=== PATIENT | male | born 1930 | race African-American/Black ===

== ENCOUNTER 2017-11-11 15:32 | Emergency (ER) | payer MEDICARE ==
[2017-11-11] MEDS ORDERED: NORMAL SALINE 1000 ML 1,000 ML IV ONE (15:39)
--- NOTE | 2017-11-11 15:54 | ER Document Report ---
ED General - General Stated Complaint: NEAR SYNCOPE Time Seen by Provider: 11/11/17 15:38 - HPI Notes: Patient is an 86-year-old male with no significant past medical history and is on no p.o. medications who presents to the ED via EMS for complaint of weakness. Patient states that he was mowing his lawn when he states that he started feeling weak so he needed to sit down. Patient states that at that time his family members came up to him and made him lay down even though he did not want to and called EMS. Patient states that all he wanted to do a sit down and rest for a minute before he went back to mowing, but his daughter wanted him to come to the ED for a checkup. Patient states that he is no longer feeling weak and is feeling back to normal. Patient states that he did not have any dizziness, changes in his vision, diaphoresis, or pain. Patient states that he has been eating and drinking without any difficulties. He is urinating normally. He did not have any muscle cramping. Denies any significant cardiopulmonary medical history and is not on any blood thinners. Patient denies any injury. No LOC. Denies any headache, fever, head injury, neck pain, changes in speech/mentation/hearing, URI, sore throat, chest pain, palpitations, syncope, cough, shortness of breath, wheeze, dyspnea, abdominal pain, nausea/vomiting/diarrhea, urinary retention, dysuria, hematuria, back pain , loss of control of bowel or bladder, numbness/tingling, muscle paralysis, or rash. Past Medical History - Social History Smoking Status: Never Smoker Family History: Reviewed & Not Pertinent Review of Systems - Review of Systems -: Yes All other systems reviewed and negative Physical Exam - Vital signs Vitals: Temp Pulse Resp 98.2 F 92 16 11/11/17 15:35 11/11/17 15:35 11/11/17 15:35 - Notes Notes: PHYSICAL EXAMINATION: GENERAL: Well-appearing, well-nourished and in no acute distress. A&Ox4. Answers questions appropriately. Very pleasant. HEAD: Atraumatic, normocephalic. Non-tender. No bell sign EYES: Pupils equal round and reactive to light, extraocular movements intact, sclera anicteric, conjunctiva are normal. No raccoon eyes/entrapment. No nystagmus. ENT: EAC clear b/l. TM's intact b/l without erythema, fluid, or perforation. Nares patent and without discharge. oropharynx clear without exudates. No tonsilar hypertrophy or erythema. Moist mucous membranes. No sinus tenderness. No hemotympanum/CSF discharge. NECK: Normal range of motion, supple without lymphadenopathy. No rigidity. No midline tenderness. Chest: No flail chest. equal rise/fall. Non-tender LUNGS: Breath sounds clear to auscultation bilaterally and equal. No wheezes rales or rhonchi. HEART: Regular rate and rhythm without murmurs, rubs, gallops. ABDOMEN: Soft, nontender, nondistended abdomen. No guarding, no rebound. No masses appreciated. Normal bowel sounds present. No CVA tenderness bilaterally. Musculoskeletal: Ext b/l: FROM to passive/active. Strength 5+/5. No deficits noted. No bony tenderness of extremities. Back: FROM to passive/active. Strength 5+/5. No vertebral point tenderness, stepoffs, or deformities. No other bony tenderness or ecchymosis. Extremities: No cyanosis, clubbing, or edema b/l. Peripheral pulses 2+. Capillary refill less than 2 seconds. NEUROLOGICAL: NIH 0. GCS 15. Cranial nerves grossly intact. Normal speech, normal gait. Normal sensory, motor exams. Reflexes 2+ b/l. HÉCTOR's negative. Pronator drift negative. Heel/marin, finger/nose wnl. PSYCH: Normal mood, normal affect. SKIN: Warm, Dry, normal turgor, no rashes or lesions noted. Course - Re-evaluation Re-evalutation: 11/11/17 15:56 Pt's currently history not suggestive of near syncope or syncope. 11/11/17 19:19 Patient is an afebrile, well-hydrated 86-year-old male who presents to the ED with episode of feeling weak, since resolved. Vitals are acceptable without any significant tachycardia, tachypnea, or hypoxia. PE is otherwise unremarkable. Patient is nontoxic-appearing and is tolerating p.o. without any difficulties. Pt is currently asymptomatic. Pt has been asymptomatic since prior to his arrival. Pt was working out in the sunlight and became tired when he was mowing the lawn and his family wanted him checked out. CBC, CMP, EKG/ cardiac enzymes 2, chest x-ray, UA are all unremarkable for any acute pathology. Patient has a heart score of 2, Wells score of 0, and is PERC negative aside from his age. Patient has not had any chest pain, dyspnea, or shortness of breath. Patient's presentation and symptomatology creates low suspicion for ACS, PE, pneumothorax, pericarditis, dissection, respiratory compromise, severe dehydration, sepsis, meningitis, acute intracranial pathology , or other systemic emergent condition at this time. Patient is aware that his condition can change from initial presentation and he needs to monitor symptoms closely and seek medical attention for any acute changes. Pt is feeling better and would like to go home. Recommend conservative measures for symptoms. Recheck with your PCM in 2-3 days. Consider consult with Cardiology. Return to the ED with any worsening/concerning symptoms otherwise as reviewed in discharge. Patient is in agreement. Reviewed case with Dr. Edwards who is in agreement with dispo/plan. - Vital Signs Vital signs: Temp Pulse Resp BP Pulse Ox 98.2 F 92 22 H 149/76 H 99 11/11/17 15:35 11/11/17 15:35 11/11/17 18:21 11/11/17 18:21 11/11/17 18:21 - Laboratory Result Diagrams: 11/11/17 16:00 11/11/17 16:00 Laboratory results interpreted by me: 11/11/17 11/11/17 11/11/17 16:00 16:00 16:43 WBC 3.7 L Sodium 147.1 H Chloride 108 H Urine Urobilinogen 2.0 H Urine Ascorbic Acid 40 H Discharge - Discharge Clinical Impression: Weakness, Worried well Condition: Stable Disposition: HOME, SELF-CARE Additional Instructions: Maintain adequate fluid and food intake healthy diet Monitor symptoms for any acute changes Recheck with your PCM in 2-3 days Consider a follow-up with cardiology Return to the ED with any worsening symptoms and/or development of fever, headache, chest pain, palpitations, syncope, shortness of breath, trouble breathing, abdominal pain, n/v/d, blood in stool/urine, loss of control of bowel /bladder, urinary retention, muscle weakness/paralysis, numbness/tingling, or other worsening symptoms that are concerning to you. Forms: Elevated Blood Pressure Referrals: ALDEN AHUJA MD [Primary Care Provider] - 11/14/17
[2017-11-11 16:11] LABS: ABSOLUTE MONOCYTES (AUTO) 0.4 10^3/uL (0.1-1.4); ABSOLUTE NEUT (AUTO) 2.3 10^3/uL (1.7-8.2); BASOPHILS % (AUTO) 0.9 % (0-2); EOSINOPHILS % (AUTO) 0.7 % (0-6); HEMATOCRIT 41.1 % (37.9-51.0); HEMOGLOBIN 13.7 g/dL (13.5-17.0); LYMPHOCYTES % (AUTO) 26.2 % (13-45); MEAN CORPUSCULAR HEMOGLOBIN 31.2 pg (27.0-33.4); MEAN CORPUSCULAR HGB CONC 33.4 g/dL (32.0-36.0); MEAN CORPUSCULAR VOLUME 94 fl (80-97); MONOCYTES % (AUTO) 10.6 % (3-13); PLATELET COUNT 179 10^3/uL (150-450); RED CELL DISTRIBUTION WIDTH 13.3 % (11.5-14.0); SEGMENTED NEUTROPHILS % (AUTO) 61.6 % (42-78); TOTAL CELLS COUNTED % (AUTO) 100 %; WHITE BLOOD COUNT 3.7 10^3/uL (4.0-10.5)
--- NOTE | 2017-11-11 16:27 | RADIOLOGY REPORT (SQ) ---
EXAM DESCRIPTION: CHEST SINGLE VIEW COMPLETED DATE/TIME: 11/11/2017 4:18 pm REASON FOR STUDY: syncope COMPARISON: None. EXAM PARAMETERS: NUMBER OF VIEWS: One view. TECHNIQUE: Single frontal radiographic view of the chest acquired. RADIATION DOSE: NA LIMITATIONS: None. FINDINGS: LUNGS AND PLEURA: No opacities, masses or pneumothorax. No pleural effusion. MEDIASTINUM AND HILAR STRUCTURES: No masses. Contour normal. HEART AND VASCULAR STRUCTURES: Heart normal in size. Normal vasculature. BONES: No acute findings. HARDWARE: None in the chest. OTHER: No other significant finding. IMPRESSION: NO ACUTE RADIOGRAPHIC FINDING IN THE CHEST. TECHNICAL DOCUMENTATION: JOB ID: [id number] [employer]- All Rights Reserved Reading location - IP/workstation name: [email or web address]
[2017-11-11 16:33] LABS: ALANINE AMINOTRANSFERASE 26 U/L (21-72); ALBUMIN 3.7 g/dL (3.5-5.0); ALKALINE PHOSPHATASE 46 U/L (38-126); ANION GAP 11 (5-19); ASPARTATE AMINO TRANSFERASE 26 U/L (17-59); BILIRUBIN,DIRECT 0.3 mg/dL (0.0-0.4); BILIRUBIN,TOTAL 0.6 mg/dL (0.2-1.3); BLOOD UREA NITROGEN 19 mg/dL (7-20); CALCIUM 9.3 mg/dL (8.4-10.2); CARBON DIOXIDE 28 mmol/L (22-30); CHLORIDE 108 mmol/L (98-107); CREATINE KINASE 73 U/L (55-170); GLUCOSE 90 mg/dL (75-110); SODIUM 147.1 mmol/L (137-145); TOTAL PROTEIN 6.3 g/dL (6.3-8.2)
[2017-11-11 19:16] LABS: APPEARANCE,URINE CLEAR; BILIRUBIN,URINE NEGATIVE (NEGATIVE); COLOR,URINE YELLOW; GLUCOSE, URINE NEGATIVE (NEGATIVE); KETONES,URINE NEGATIVE (NEGATIVE); LEUKOCYTE ESTERASE,URINE NEGATIVE (NEGATIVE); NITRITE,URINE NEGATIVE (NEGATIVE); PROTEIN,URINE NEGATIVE (NEGATIVE); URINE SPECIFIC GRAVITY 1.024
[2017-11-11 19:51] VITALS: BP 144/70
--- NOTE | 2017-11-11 22:28 | EKG REPORT ---
SEVERITY:- BORDERLINE ECG - SINUS RHYTHM PROBABLE LEFT ATRIAL ABNORMALITY : Confirmed by: Kellen Mata MD 11-Nov-2017 22:28:04
== END 2017-11-11 19:58 | disposition home or self-care (01) ==
LOC: ER 15:32
DX: R53.1 Weakness (principal)
CPT/HCPCS: 93005; 99284; 96360; 96361; 36415; 87086; 82550; 85025; 80053; 81001; 84484; 71045; 93010; J7030

== ENCOUNTER 2019-11-23 03:13 | Emergency (ER) | payer MEDICARE ==
--- NOTE | 2019-11-23 04:57 | ER Document Report ---
ED General - General Chief Complaint: Fall Stated Complaint: ABRASION AND HEMATOMA HEAD Time Seen by Provider: 11/23/19 04:32 Primary Care Provider: AMMON WALKER MD [Primary Care Provider] - 11/26/19 Notes: Patient is an 88-year-old male that comes emergency department for chief complaint of a fall. Patient has a history of dementia, lives at home with his family, daughter states that she heard the patient leaving his room, she thought he was visiting his in the other room, however she checked on him shortly after and found that he was gone, the back door was open, she checked outside and he was missing. She states that she was getting into her vehicle to go looking for him when the police pulled up with the patient in the backseat. Daughter states that police told her they found patient down the road in a ditch and had apparently fallen into the ditch and was lying on the ground when they got him. Patient was on the ground for an estimated time of 30 minutes or less. Patient was noted to have an abrasion to his forehead, however he was talkative, cooperative, and complains of no pain. Patient is not on a blood thinner. Patient has no complaints currently, is responsive, and is reportedly at his mental baseline. Patient is up-to-date on his tetanus within 5 years reportedly. Patient is extremely healthy other than the dementia and takes no daily medications reportedly. Past Medical History - General Information source: Patient, Relative - Social History Smoking Status: Former Smoker Frequency of alcohol use: None Drug Abuse: None Lives with: Family Family History: Reviewed & Not Pertinent Patient has homicidal ideation: No Renal/ Medical History: Denies: Hx Peritoneal Dialysis - Immunizations Immunizations up to date: Yes Hx Diphtheria, Pertussis, Tetanus Vaccination: Yes Review of Systems - Review of Systems Constitutional: See HPI EENT: No symptoms reported Cardiovascular: No symptoms reported Respiratory: No symptoms reported Gastrointestinal: No symptoms reported Genitourinary: No symptoms reported Male Genitourinary: No symptoms reported Musculoskeletal: See HPI Skin: See HPI Hematologic/Lymphatic: No symptoms reported Neurological/Psychological: See HPI Physical Exam - Vital signs Vitals: Temp Pulse Resp BP Pulse Ox 98.5 F 72 20 156/67 H 97 11/23/19 03:23 11/23/19 03:23 11/23/19 03:23 11/23/19 03:23 11/23/19 03:23 - Notes Notes: GENERAL: Alert, interacts well. No acute distress. Talkative, smiling, well- appearing HEAD: Normocephalic. There is an approximately 2 cm abrasion over the left mid forehead but no concerning wounds otherwise, no ecchymosis or hematoma noted. EYES: Pupils equal, round, and reactive to light. Extraocular movements intact. ENT: Oral mucosa moist, tongue midline. Oropharynx unremarkable. Airway patent. Nares patent, sinuses non-tender, ear canals unremarkable, TM's intact. NECK: Full range of motion. Supple. Trachea midline. No lymphadenopathy. LUNGS: Clear to auscultation bilaterally, no wheezes, rales, or rhonchi. No respiratory distress. Non-tender chest wall. No signs of trauma. HEART: Regular rate and rhythm. No murmur ABDOMEN: Soft, non-tender. Non-distended. Bowel sounds present in all 4 quadrants. No signs of trauma. EXTREMITIES: Moves all 4 extremities spontaneously. No signs of trauma. No edema, normal radial and dorsalis pedis pulses bilaterally. No cyanosis. BACK: no cervical, thoracic, lumbar midline tenderness. No saddle anesthesia, normal distal neurovascular exam. Moves all extremities in full range of motion. NEUROLOGICAL: Alert and oriented to person and place only. Normal speech. Cranial nerves II through XII grossly intact. Strength 5/5 in all extremities. PSYCH: Normal affect, normal mood. SKIN: Warm, dry, normal turgor. No rashes or lesions noted. Course - Re-evaluation Re-evalutation: Patient is alert, cooperative, oriented to person, place, but not all events. Reportedly this is his baseline. He has no neurological deficits otherwise. He does have an abrasion over the forehead but no open wounds requiring repair. There is no other sign of trauma over the patient's body despite thorough evaluation. CBC, chemistry unremarkable, urinalysis shows some dehydration but is otherwise unremarkable, CK is not elevated. CT of the head and neck with no acute findings. Patient unchanged on reevaluation. Discussed work-up with patient and family. Patient will be discharged with head injury precautions, wound care instructions were discussed, return precautions were discussed in detail. They state appreciation and agreement with plan. Patient asymptomatic, stable, well- appearing at time of discharge. - Vital Signs Vital signs: Temp Pulse Resp BP Pulse Ox 98.5 F 66 14 148/67 H 100 11/23/19 03:23 11/23/19 08:05 11/23/19 08:05 11/23/19 08:05 11/23/19 08:05 - Laboratory Result Diagrams: 11/23/19 05:14 11/23/19 05:14 Laboratory results interpreted by me: 11/23/19 11/23/19 05:14 07:02 Carbon Dioxide 31 H Anion Gap 3 L Urine Protein 30 H Urine Urobilinogen 2.0 H Ur Leukocyte Esterase TRACE H Urine Ascorbic Acid 40 H Discharge - Discharge Clinical Impression: Fall Qualifiers: Encounter type: initial encounter Qualified Code(s): W19.XXXA - Unspecified fall, initial encounter Forehead abrasion Qualifiers: Encounter type: initial encounter Qualified Code(s): S00.81XA - Abrasion of other part of head, initial encounter Head injury Qualifiers: Encounter type: initial encounter Qualified Code(s): S09.90XA - Unspecified injury of head, initial encounter Condition: Stable Disposition: HOME, SELF-CARE Additional Instructions: The CAT scan of the head and neck do not show any concerning findings, his laboratory work-up does not show any concerning findings other than mild dehydration. Make sure he drinks plenty of fluids. Keep the area/abrasion of the forehead clean, clean with soap and water, keep topical antibiotic over the area, this should simply heal with time. At this point, there is no evidence that your head injury is serious. Observation is necessary, however. You can take Tylenol if needed for pain. Limit activity for the first 24 hours. During the first 24 hours, check to see approximately every two to three hours that the patient is easily arousable, responds normally, and can perform common tasks such as walking without difficulty. Head injuries can cause symptoms that persist for a few days or even a few weeks (difficulty concentrating, nausea, headaches, etc.). Return for any concerning symptoms including vomiting, difficulty arousing the patient, worsening or continued headache, seizure, or failure to improve as expected. Referrals: AMMON WALKER MD [Primary Care Provider] - 11/26/19
[2019-11-23 05:23] LABS: ABSOLUTE LYMPHOCYTES (AUTO) 1.2 10^3/uL (0.5-4.7); ABSOLUTE MONOCYTES (AUTO) 0.4 10^3/uL (0.1-1.4); RED BLOOD COUNT 4.35 10^6/uL (4.35-5.55); TOTAL CELLS COUNTED % (AUTO) 100 %
[2019-11-23 05:27] LABS: ABSOLUTE EOSINOPHILS # (AUTO) 0.1 10^3/uL (0.0-0.6); BASOPHILS % (AUTO) 0.9 % (0-2); EOSINOPHILS % (AUTO) 1.1 % (0-6); HEMATOCRIT 40.8 % (37.9-51.0); HEMOGLOBIN 13.8 g/dL (13.5-17.0); LYMPHOCYTES % (AUTO) 26.2 % (13-45); MEAN CORPUSCULAR HEMOGLOBIN 31.8 pg (27.0-33.4); MEAN CORPUSCULAR VOLUME 94 fl (80-97); MONOCYTES % (AUTO) 8.5 % (3-13); PLATELET COUNT 211 10^3/uL (150-450); RED CELL DISTRIBUTION WIDTH 13.5 % (11.5-14.0); SEGMENTED NEUTROPHILS % (AUTO) 63.3 % (42-78); WHITE BLOOD COUNT 4.8 10^3/uL (4.0-10.5)
[2019-11-23 05:40] LABS: BLOOD UREA NITROGEN 16 mg/dL (7-20); CARBON DIOXIDE 31 mmol/L (22-30); CHLORIDE 106 mmol/L (98-107); GLUCOSE 104 mg/dL (75-110); POTASSIUM 4.3 mmol/L (3.6-5.0)
[2019-11-23 05:47] LABS: ANION GAP 3 (5-19)
--- NOTE | 2019-11-23 06:05 | RADIOLOGY REPORT (SQ) ---
CT of the head: 11/23/2019 5:02 AM CDT HISTORY: 88-year-old patient with fall, head injury. COMPARISON: None available TECHNIQUE: Multiple axial contiguous images were obtained through the head without intravenous contrast administered. This exam was performed according to our departmental dose-optimization program, which includes automated exposure control, adjustment of the mA and/or KV according to the patient's size and/or use of iterative reconstruction technique. FINDINGS: The ventricles and cerebral sulci demonstrate mild prominence, consistent with cerebral atrophy. There are mild periventricular hypodensities, suggestive of periventricular white matter changes. The maddox-white matter differentiation is within normal limits. Both orbits appear unremarkable. The mastoid air cells appear clear. The visualized paranasal sinuses appear clear. The calvarium is intact. No extra-axial fluid collection is seen. No midline shift or mass effect is apparent. There are no findings to suggest acute intracranial hemorrhage. IMPRESSION: 1. No acute intracranial hemorrhage is seen. 2. Mild cerebral atrophy and periventricular white matter changes are seen. CT CERVICAL SPINE: 11/23/2019 5:03 AM CDT TECHNIQUE: Axial contiguous images were obtained through the cervical spine without intravenous contrast. Sagittal and coronal reconstructions were also reviewed. This exam was performed according to our departmental dose-optimization program, which includes automated exposure control, adjustment of the mA and/or KV according to the patient's size and/or use of iterative reconstruction technique. COMPARISON: None available INDICATION: 88-year old patient with neck pain, fall. FINDINGS: There are multilevel anterior osteophyte seen at the cervical spine. Moderate facet hypertrophy is seen which contributes to multilevel neural foraminal narrowing most pronounced at the lower cervical spine.. There is moderate atherosclerotic calcification at the carotid bulbs. There is a disc osteophyte seen in C5/C6 and C6/C7. The vertebral bodies appear well aligned. The vertebral body heights appear well maintained. No significant pre-vertebral soft tissue swelling is noted. No definite fracture or subluxation is noted. No significant intervertebral disc space narrowing is seen. The visualized brain parenchyma appears unremarkable. The craniocervical junction is unremarkable. IMPRESSION: There are no findings to suggest an acute fracture or subluxation within the cervical spine.
[2019-11-23 07:20] LABS: APPEARANCE,URINE SLIGHTLY-CLOUDY; BILIRUBIN,URINE NEGATIVE (NEGATIVE); COLOR,URINE YELLOW; GLUCOSE, URINE NEGATIVE (NEGATIVE); KETONES,URINE NEGATIVE (NEGATIVE); LEUKOCYTE ESTERASE,URINE TRACE (NEGATIVE); NITRITE,URINE NEGATIVE (NEGATIVE); PROTEIN,URINE 30 mg/dL (NEGATIVE); URINE SPECIFIC GRAVITY 1.024
[2019-11-23] MEDS ORDERED: NORMAL SALINE 500 ML IV ONE (07:25)
[2019-11-23 08:12] VITALS: BP 148/67
== END 2019-11-23 08:05 | disposition home or self-care (01) ==
LOC: ER 03:13
DX: S00.81XA Abrasion of other part of head, initial encounter (principal); W17.89XA Other fall from one level to another, initial encounter; Y92.89 Other specified places as the place of occurrence of the external cause; E86.0 Dehydration; F03.90 Unspecified dementia, unspecified severity, without behavioral disturbance, psychotic disturbance, mood disturbance, and anxiety; Z87.891 Personal history of nicotine dependence
CPT/HCPCS: 36415; 70450; 72125; 80048; 81001; 82550; 85025; 87086; 87088; 87186; 99284

== ENCOUNTER 2020-02-11 14:07 | Inpatient (IN) | payer MEDICARE ==
--- NOTE | 2020-02-11 14:28 | ER Document Report ---
ED Dizziness/Weakness - General Stated Complaint: AMS/SEPSIS Time Seen by Provider: 02/11/20 14:21 Primary Care Provider: AMMON WALKER MD [Primary Care Provider] - Follow up as needed Mode of Arrival: Medic Information source: Emergency Med Personnel Cannot obtain history due to: Altered mental status Notes: 89-year-old black male arrives by [place] [facility] worker on bus #8. She advises she just came from the patient's home where the demented resides as well as the daughter who lives next door who is main historian. Patient saw Dr. Walker 2 weeks ago with blood around his urinary meatus and had some cream applied to this area. He was not checked for urinalysis because the area was so tender. Patient was doing well for breakfast but this afternoon he was not doing so well with chills and mental status change. Patient does slap away people around him advising to let him go. A Boudreaux was placed and the patient and patient had blood work done in room #2 Per ESSIE Cabrera and [place] boiler service technician. Patient had a 3.5 lactic acid in route. Patient's blood pressure was 192/95 with tachypnea and what appears to be atrial flutter controlled. TRAVEL OUTSIDE OF THE [place] IN LAST 30 DAYS: No - Just had negative coronavirus around 1 to 2 weeks ago per EMS - HPI Patient complains to provider of: Altered mental status, Weakness - A portable Pap today he can use his IVs as a site prior to arrival Onset: This afternoon Onset/Duration: Sudden, Persistent, Worse Quality of pain: No pain Severity: Moderate Pain Level: 2 Associated symptoms: Confused, Lightheaded, Loss of strength, Weak all over Baseline gait: Walks w/o assistance - Related Data Allergies/Adverse Reactions: No Known Allergies Allergy (Verified 02/11/20 14:30) Past Medical History - General Information source: Relative, Emergency Med Personnel - Social History Smoking Status: Never Smoker Cigarette use (# per day): No Chew tobacco use (# tins/day): No Smoking Education Provided: No Family History: Reviewed & Not Pertinent Patient has suicidal ideation: No Patient has homicidal ideation: No Renal/ Medical History: Denies: Hx Peritoneal Dialysis - Immunizations Immunizations up to date: Yes Hx Diphtheria, Pertussis, Tetanus Vaccination: Yes Review of Systems - Review of Systems Constitutional: See HPI, Weakness EENT: No symptoms reported Cardiovascular: No symptoms reported Respiratory: No symptoms reported Gastrointestinal: No symptoms reported Genitourinary: No symptoms reported Male Genitourinary: No symptoms reported Musculoskeletal: No symptoms reported Skin: No symptoms reported Hematologic/Lymphatic: No symptoms reported Neurological/Psychological: No symptoms reported Physical Exam - Vital signs Vitals: Resp BP 27 H 192/95 H 02/11/20 14:11 02/11/20 14:11 Interpretation: Normal - General General appearance: Appears well, Alert - HEENT Head: Normocephalic, Atraumatic Eyes: Normal Pupils: PERRL - Respiratory Respiratory status: No respiratory distress Chest status: Nontender Breath sounds: Normal Chest palpation: Normal - Cardiovascular Rhythm: Regular Heart sounds: Normal auscultation Murmur: No - Abdominal Inspection: Normal Distension: No distension Bowel sounds: Normal Tenderness: Nontender Organomegaly: No organomegaly - Rectal Prostate: Other - deferred - Genitourinary Scrotum: Other - deferred - Back Back: Normal, Nontender - Extremities General upper extremity: Normal inspection, Nontender, Normal color, Normal ROM, Normal temperature General lower extremity: Normal inspection, Nontender, Normal color, Normal ROM, Normal temperature, Normal weight bearing. No: Livia's sign - Neurological Neuro grossly intact: No Cognition: Confused Orientation: Disoriented to events [place] Coma Scale Eye Opening: To Pain Daisy Coma Scale Verbal: Confused [place] Coma Scale Motor: Localizes to Pain Daisy Coma Scale Total: 11 Speech: Normal Motor strength normal: LUE, RUE, LLE, RLE - Psychological Associated symptoms: Normal affect, Normal mood - Skin Skin Temperature: Warm Skin Moisture: Dry Skin Color: Normal Course - Vital Signs Vital signs: Temp Pulse Resp BP Pulse Ox 24 H 187/91 H 100 02/11/20 14:31 02/11/20 14:31 02/11/20 14:31 - Laboratory Result Diagrams: 02/11/20 14:20 02/11/20 14:20 Laboratory results interpreted by me: 02/11/20 02/11/20 02/11/20 14:20 14:20 14:20 RBC 4.24 L Lymph % (Auto) 47.2 H Seg Neutrophils % 41.6 L APTT 37.8 H Creatine Kinase 38 L Urine Protein Urine Urobilinogen Urine Ascorbic Acid 02/11/20 14:20 RBC Lymph % (Auto) Seg Neutrophils % APTT Creatine Kinase Urine Protein 30 H Urine Urobilinogen 4.0 H Urine Ascorbic Acid 20 H - Diagnostic Test Radiology reviewed: Reports reviewed - CT of head and chest x-ray were evaluated and reported to his personal doctor as well. - EKG Interpretation by Me EKG shows normal: Sinus rhythm Rate: Normal Rhythm: NSR - Heart rate 63 bpm with PAC and borderline T wave abnormalities in the inferior leads and no ST elevation noted by myself on my read. I agree with the EKG machine as well. Critical Care Note - Critical Care Note Comments: I spoke with Dr. Walker at 1635 and he advises Covid test and placement; Discharge - Discharge Clinical Impression: COVID-19 virus test result unknown Pneumonia Qualifiers: Pneumonia type: due to unspecified organism Laterality: left Lung location: lower lobe of lung Qualified Code(s): J18.9 - Pneumonia, unspecified organism Mental status alteration Qualifiers: Altered mental status type: unspecified Qualified Code(s): R41.82 - Altered mental status, unspecified Hypertension Qualifiers: Hypertension type: unspecified Qualified Code(s): I10 - Essential (primary) hypertension Condition: Stable Disposition: ADMITTED INPATIENT Admitting Provider: Nidhi Unit Admitted: Medical Floor Additional Instructions: As per .. He advises transfer to the coronavirus floor Referrals: AMMON WALKER MD [Primary Care Provider] - Follow up as needed
[2020-02-11 14:41] LABS: APPEARANCE,URINE SLIGHTLY-CLOUDY; BILIRUBIN,URINE NEGATIVE (NEGATIVE); COLOR,URINE YELLOW; GLUCOSE, URINE NEGATIVE (NEGATIVE); KETONES,URINE NEGATIVE (NEGATIVE); LEUKOCYTE ESTERASE,URINE NEGATIVE (NEGATIVE); NITRITE,URINE NEGATIVE (NEGATIVE); PROTEIN,URINE 30 mg/dL (NEGATIVE); URINE SPECIFIC GRAVITY 1.021
[2020-02-11 14:46] LABS: ABSOLUTE EOSINOPHILS # (AUTO) 0.1 10^3/uL (0.0-0.6); ABSOLUTE LYMPHOCYTES (AUTO) 1.9 10^3/uL (0.5-4.7); ABSOLUTE MONOCYTES (AUTO) 0.4 10^3/uL (0.1-1.4); ABSOLUTE NEUT (AUTO) 1.7 10^3/uL (1.7-8.2); BASOPHILS % (AUTO) 0.6 % (0-2); EOSINOPHILS % (AUTO) 1.7 % (0-6); HEMATOCRIT 39.4 % (37.9-51.0); HEMOGLOBIN 13.7 g/dL (13.5-17.0); LYMPHOCYTES % (AUTO) 47.2 % (13-45); MEAN CORPUSCULAR HEMOGLOBIN 32.4 pg (27.0-33.4); MEAN CORPUSCULAR HGB CONC 34.8 g/dL (32.0-36.0); MEAN CORPUSCULAR VOLUME 93 fl (80-97); MONOCYTES % (AUTO) 8.9 % (3-13); PLATELET COUNT 234 10^3/uL (150-450); RED BLOOD COUNT 4.24 10^6/uL (4.35-5.55); RED CELL DISTRIBUTION WIDTH 13.4 % (11.5-14.0); SEGMENTED NEUTROPHILS % (AUTO) 41.6 % (42-78); TOTAL CELLS COUNTED % (AUTO) 100 %; WHITE BLOOD COUNT 4.1 10^3/uL (4.0-10.5)
--- NOTE | 2020-02-11 14:48 | RADIOLOGY REPORT (SQ) ---
EXAM DESCRIPTION: CHEST SINGLE VIEW IMAGES COMPLETED DATE/TIME: 02/11/2020 2:41 pm REASON FOR STUDY: ms changes COMPARISON: None. EXAM PARAMETERS: NUMBER OF VIEWS: One view. TECHNIQUE: Single frontal radiographic view of the chest acquired. RADIATION DOSE: NA LIMITATIONS: None. FINDINGS: LUNGS AND PLEURA: Minimal infiltrate in the left base either atelectasis or developing pne umonia. Lung rojo are otherwise clear. MEDIASTINUM AND HILAR STRUCTURES: No masses. Contour normal. HEART AND VASCULAR STRUCTURES: Heart normal in size. Normal vasculature. BONES: No acute findings. HARDWARE: None in the chest. OTHER: No other significant finding. IMPRESSION: Minimal left basilar infiltrate most likely atelectasis. TECHNICAL DOCUMENTATION: JOB ID: [id number] 2010 [employer]- All Rights Reserved Reading location - IP/workstation name: [email or web address]
[2020-02-11 14:51] LABS: VENOUS BLOOD BASE EXCESS 1.9 mmol/L; VENOUS BLOOD HCO3 28.6 mmol/L (20-32); VENOUS BLOOD PCO2 53.2 mmHg (35-63); VENOUS BLOOD PH 7.35 (7.30-7.42)
[2020-02-11 14:54] LABS: INTERNATIONAL RATION (INR) 1.06
[2020-02-11 14:55] LABS: PARTIAL THROMBOPLASTIN TIME 37.8 SEC (23.5-35.8)
[2020-02-11 15:10] LABS: ALBUMIN 3.7 g/dL (3.5-5.0); ALKALINE PHOSPHATASE 76 U/L (38-126); ANION GAP 10 (5-19); ASPARTATE AMINO TRANSFERASE 24 U/L (17-59); BILIRUBIN,DIRECT 0.3 mg/dL (0.0-0.4); BILIRUBIN,TOTAL 0.7 mg/dL (0.2-1.3); BLOOD UREA NITROGEN 19 mg/dL (7-20); CALCIUM 9.3 mg/dL (8.4-10.2); CARBON DIOXIDE 28 mmol/L (22-30); CHLORIDE 105 mmol/L (98-107); CREATINE KINASE 38 U/L (55-170); GLUCOSE 101 mg/dL (75-110); POTASSIUM 4.3 mmol/L (3.6-5.0); TOTAL PROTEIN 6.6 g/dL (6.3-8.2)
--- NOTE | 2020-02-11 15:53 | RADIOLOGY REPORT (SQ) ---
EXAM DESCRIPTION: CT HEAD WITHOUT IMAGES COMPLETED DATE/TIME: 02/11/2020 3:19 pm REASON FOR STUDY: ms changes COMPARISON: 11/23/2019 TECHNIQUE: Axial images acquired through the brain without intravenous contrast. Images reviewed wi th bone, brain and subdural windows. Additional sagittal and coronal reconstructions were generated. Images stored on PACS. All CT scanners at this facility use dose modulation, iterative reconstruction, and/or weight based d osing when appropriate to reduce radiation dose to as low as reasonably achievable (ALARA). [facility]: Dose Right [facility]: CareDose [facility]: Dose Right [facility]: Teradose 4D [facility]: Moonshoot RADIATION DOSE: CT Rad equipment meets quality standard of care and radiation dose reduction techniq ues were employed. CTDIvol: 53.2 mGy. DLP: 1044 mGy-cm.mGy. LIMITATIONS: None. FINDINGS: VENTRICLES: Prominent. CEREBRUM: No masses. No hemorrhage. No midline shift. Areas of low density in the white matter mos t likely due to chronic micro-vascular ischemic change. No evidence for acute infarction. CEREBELLUM: No masses. No hemorrhage. No alteration of density. No evidence for acute infarction. EXTRAAXIAL SPACES: Age-related involutional change. No fluid collections. No masses. ORBITS AND GLOBE: No intra- or extraconal masses. Normal contour of globe without masses. CALVARIUM: No fracture. PARANASAL SINUSES: No fluid or mucosal thickening. SOFT TISSUES: No mass or hematoma. OTHER: No other significant finding. IMPRESSION: CHRONIC CHANGES OF ATROPHY AND MICROVASCULAR ISCHEMIA. NO ACUTE PROCESS. EVIDENCE OF ACUTE STROKE: NO. TECHNICAL DOCUMENTATION: JOB ID: [id number] Quality ID # [id number]: Final reports with documentation of one or more dose reduction techniques (e.g., Au tomated exposure control, adjustment of the mA and/or kV according to patient size, use of iterative reconstruction technique) 2010 [employer]- All Rights Reserved Reading location - IP/workstation name: [email or web address]
[2020-02-11] MEDS ORDERED: CEFTRIAXONE INJ 1000 MG VIAL IV ONE (16:41)
[2020-02-11] MEDS ORDERED: DEXAMETHASONE SOD PHOS INJ 10 MG/1 ML VIAL IV ONE (16:42)
[2020-02-11] MEDS ORDERED: FAMOTIDINE INJ/PF 20 MG/2 ML SDV IV ONE (16:42)
--- NOTE | 2020-02-11 17:19 | EKG REPORT ---
SEVERITY:- BORDERLINE ECG - SINUS RHYTHM ATRIAL PREMATURE COMPLEX BORDERLINE T ABNORMALITIES, INFERIOR LEADS : Confirmed by: Dillon Carmona MD 11-Feb-2020 17:18:35
[2020-02-11 18:09] LABS: A TYPE INFLUENZA AG NEGATIVE (NEGATIVE); B INFLUENZA AG NEGATIVE (NEGATIVE)
[2020-02-11] MEDS ORDERED: LOSARTAN POTASSIUM 50 MG TABLET PO ONE (22:15)
--- NOTE | 2020-02-11 22:21 | PDOC H&P ---
History of Present Illness Admission Date/PCP: 02/11/20 19:28 AMMON ZENAANTONIONeda Patient complains of: Change in mental status, Weakness History of Present Illness: DONG CAO is a 89 year old male patient known to my practice who was recently treated for balanitis and reported incident of fall at his home. Patient presented to the ED via EMS with complain of weakness, change in mental status and chills. There was reported elevated lactic acid level at 3.5 en route to the ED and blood pressure at 192/95 mmHg. His initial evaluation in the ED was significant for persistent elevated blood pressure and concern about possible left lower lobe air space disease process versus atelectesis. His CT brain revealed chronic changes with atrophy. He was unable to contribute to his medical history due to his altered mental status. His medical morbidities are as listed below. He will be admitted for further evaluation and management as well as rule out for COVID-19 infection. Social History Smoking Status: Never Smoker Electronic Cigarette use?: No - Advance Directive Resuscitation Status: Full Code Family History Family History: Reviewed & Not Pertinent Parental Family History Reviewed: Yes Children Family History Reviewed: Yes Sibling(s) Family History Reviewed.: Yes Medication/Allergy Home Medications: No Home Medications 02/11/20 Allergies/Adverse Reactions: No Known Allergies Allergy (Verified 02/11/20 14:30) Review of Systems ROS unobtainable: Due to mental status Physical Exam Vital Signs: Temp Pulse Resp BP Pulse Ox 98.1 F 53 L 21 H 182/92 H 100 02/11/20 17:01 02/11/20 19:00 02/11/20 19:00 02/11/20 19:00 02/11/20 19:00 Intake & Output 02/10/20 02/11/20 02/12/20 06:59 06:59 06:59 Weight 56.5 kg General appearance: PRESENT: no acute distress Head exam: PRESENT: atraumatic, normocephalic Eye exam: PRESENT: conjunctiva pink, EOMI, PERRLA. ABSENT: scleral icterus Mouth exam: PRESENT: moist - fairly Neck exam: PRESENT: full ROM Respiratory exam: PRESENT: clear to auscultation emily, decreased breath sounds - at lung bases Cardiovascular exam: PRESENT: RRR, +S1, +S2. ABSENT: diastolic murmur, rubs, systolic murmur Vascular exam: ABSENT: pallor GI/Abdominal exam: PRESENT: normal bowel sounds, soft. ABSENT: distended, guarding, mass, organolmegaly, rebound, tenderness Gentrourinary exam: PRESENT: indwelling catheter Extremities exam: ABSENT: pedal edema Neurological exam: PRESENT: altered, awake. ABSENT: oriented to person, oriented to place, oriented to time, oriented to situation Psychiatric exam: ABSENT: agitated, anxious Skin exam: PRESENT: dry, rash - seborrheic type on scalp and face, warm Results Laboratory Results: 02/11/20 14:20 02/11/20 14:20 02/11/20 02/11/20 02/11/20 14:20 14:20 14:20 WBC 4.1 RBC 4.24 L Hgb 13.7 Hct 39.4 MCV 93 MCH 32.4 MCHC 34.8 RDW 13.4 Plt Count 234 Seg Neutrophils % 41.6 L VBG pH 7.35 VBG pCO2 53.2 VBG HCO3 28.6 VBG Base Excess 1.9 Sodium 142.8 Potassium 4.3 Chloride 105 Carbon Dioxide 28 Anion Gap 10 BUN 19 Creatinine 0.71 Est GFR ( Amer) > 60 Glucose 101 Lactic Acid Calcium 9.3 Total Bilirubin 0.7 AST 24 Alkaline Phosphatase 76 Total Protein 6.6 Albumin 3.7 Urine Color Urine Appearance Urine pH Ur Specific [place] Urine Protein Urine Glucose (UA) Urine Ketones Urine Blood Urine Nitrite Ur Leukocyte Esterase Urine WBC (Auto) Urine RBC (Auto) 02/11/20 02/11/20 14:20 14:20 WBC RBC Hgb Hct MCV MCH MCHC RDW Plt Count Seg Neutrophils % VBG pH VBG pCO2 VBG HCO3 VBG Base Excess Sodium Potassium Chloride Carbon Dioxide Anion Gap BUN Creatinine Est GFR ( Amer) Glucose Lactic Acid 1.9 Calcium Total Bilirubin AST Alkaline Phosphatase Total Protein Albumin Urine Color YELLOW Urine Appearance SLIGHTLY-CLOUDY Urine pH 7.0 Ur Specific [place] 1.021 Urine Protein 30 H Urine Glucose (UA) NEGATIVE Urine Ketones NEGATIVE Urine Blood NEGATIVE Urine Nitrite NEGATIVE Ur Leukocyte Esterase NEGATIVE Urine WBC (Auto) 4 Urine RBC (Auto) 3 02/11/20 02/11/20 14:20 14:20 Creatine Kinase 38 L Troponin I < 0.012 Impressions: Chest X-Ray 02/11/20 14:22 IMPRESSION: Minimal left basilar infiltrate most likely atelectasis. Head CT 02/11/20 14:26 IMPRESSION: CHRONIC CHANGES OF ATROPHY AND MICROVASCULAR ISCHEMIA. NO ACUTE PROCESS. EVIDENCE OF ACUTE STROKE: NO. Assessment & Plan - Diagnosis (1) Toxic encephalopathy Is this a current diagnosis for this admission?: Yes Plan: See admitting attending physician orders for details about care plan. (2) Pneumonia Qualifiers: Pneumonia type: due to unspecified organism Laterality: left Lung location: lower lobe of lung Qualified Code(s): J18.9 - Pneumonia, unspecified organism Is this a current diagnosis for this admission?: Yes Plan: See admitting attending physician orders for details about care plan. (3) COVID-19 virus test result unknown Is this a current diagnosis for this admission?: Yes Plan: See admitting attending physician orders for details about care plan. (4) Hypertension Qualifiers: Hypertension type: unspecified Qualified Code(s): I10 - Essential (primary) hypertension Is this a current diagnosis for this admission?: Yes Plan: See admitting attending physician orders for details about care plan. - Time Time Spent: 50 to 70 Minutes Medications reviewed and adjusted accordingly: Yes Anticipated Discharge Disposition: Home with Home Health Anticipated Discharge Timeframe: within 72 hours - Inpatient Certification Based on my medical assessment, after consideration of the patient's comorbidities, presenting symptoms, or acuity I expect that the services needed warrant INPATIENT care.: Yes I certify that my determination is in accordance with my understanding of Medicare's requirements for reasonable and necessary INPATIENT services [42 CFR 412.3e].: Yes Medical Necessity: Significant Comorbidiites Make Outpatient Treatment Too Risky, Need Close Monitoring Due to Risk of Patient Decompensation, Need For Continuous Telemetry Monitoring, Need for IV Antibiotics, Risk of Complication if Not Cared For in Hospital, Risk of Diagnosis Which Will Require Inpatient Eval/Care/Monitoring Post Hospital Care: D/C Hand Stamper Documentation - Plan Summary Plan Summary: See admitting attending physician orders for details about care plan.
[2020-02-11] MEDS: FAMOTIDINE INJ/PF 20 MG/2 ML SDV IV SCH (22:59)
[2020-02-11] MEDS ORDERED: THIAMINE HCL 100 MG TABLET PO ONE (23:00)
[2020-02-12] MEDS: NORMAL SALINE 1000 ML 1,000 ML IV PRN (04:05)
[2020-02-12] MEDS: HALOPERIDOL LACTATE INJ 5 MG/1 ML VIAL IV PRN ×2 (05:38→15:54)
[2020-02-12 05:45] LABS: ABSOLUTE LYMPHOCYTES (AUTO) 0.7 10^3/uL (0.5-4.7); ABSOLUTE MONOCYTES (AUTO) 0.4 10^3/uL (0.1-1.4); ABSOLUTE NEUT (AUTO) 7.6 10^3/uL (1.7-8.2); BASOPHILS % (AUTO) 0.4 % (0-2); HEMOGLOBIN 13.2 g/dL (13.5-17.0); LYMPHOCYTES % (AUTO) 7.9 % (13-45); MEAN CORPUSCULAR VOLUME 94 fl (80-97); MONOCYTES % (AUTO) 4.2 % (3-13); PLATELET COUNT 273 10^3/uL (150-450); RED BLOOD COUNT 4.14 10^6/uL (4.35-5.55); RED CELL DISTRIBUTION WIDTH 13.1 % (11.5-14.0); SEGMENTED NEUTROPHILS % (AUTO) 87.5 % (42-78); TOTAL CELLS COUNTED % (AUTO) 100 %
[2020-02-12 05:46] LABS: WHITE BLOOD COUNT 8.7 10^3/uL (4.0-10.5)
[2020-02-12 05:59] LABS: ALBUMIN 3.7 g/dL (3.5-5.0); ALKALINE PHOSPHATASE 79 U/L (38-126); BILIRUBIN,DIRECT 0.1 mg/dL (0.0-0.4); BILIRUBIN,TOTAL 0.6 mg/dL (0.2-1.3); BLOOD UREA NITROGEN 17 mg/dL (7-20); CALCIUM 9.3 mg/dL (8.4-10.2); GLUCOSE 206 mg/dL (75-110); TOTAL PROTEIN 6.6 g/dL (6.3-8.2)
[2020-02-12 06:04] LABS: CHLORIDE 103 mmol/L (98-107)
[2020-02-12 06:05] LABS: ASPARTATE AMINO TRANSFERASE 36 U/L (17-59)
[2020-02-12 06:15] LABS: CARBON DIOXIDE 15 mmol/L (22-30)
[2020-02-12 06:19] LABS: POTASSIUM 3.2 mmol/L (3.6-5.0)
[2020-02-12 06:35] LABS: ANION GAP 24 (5-19)
[2020-02-12] MEDS ORDERED: LOSARTAN POTASSIUM 50 MG TABLET PO SCH (10:00)
[2020-02-12] MEDS: ZINC SULFATE 220 MG CAPSULE PO SCH (10:13)
[2020-02-12] MEDS: ASCORBIC ACID 500 MG TABLET PO SCH (10:14)
[2020-02-12] MEDS: CHOLECALCIFEROL (D3) 1,000 UNIT (25 MCG) TABLET PO SCH (10:14)
[2020-02-12] MEDS: FAMOTIDINE INJ/PF 20 MG/2 ML SDV IV SCH ×2 (10:14→22:15)
[2020-02-12] MEDS: KETOCONAZOLE 2% SHAMPOO 120 ML BOTTLE TP SCH (10:14)
[2020-02-12] MEDS: THIAMINE HCL 100 MG TABLET PO SCH (10:14)
[2020-02-12] MEDS: MULTIVITS W-MIN/IRON SOLN 60 ML PO SCH (10:17)
[2020-02-12] MEDS ORDERED: ACETAMINOPHEN 325 MG TABLET PO PRN (16:38)
[2020-02-12] MEDS: CEFTRIAXONE 1 GM/D5W RTU 1 GM/50 ML RTUPB IV SCH (17:02)
--- NOTE | 2020-02-12 19:13 | PDOC PROGRESS REPORT ---
Subjective Progress Note for:: 02/12/20 Subjective:: Patient continue to demonstrate agitation and confusion. Probably polled on Boudreaux catheter with present hematuria. No difficulty with breathing. No reported vomiting or fever. Reason For Visit: TOXIC ENCEPHALOPATHY,COVID-19 PUI,PROBABLE PNEUMON Physical Exam Vital Signs: Temp Pulse Resp BP Pulse Ox 98.0 F 109 H 20 167/89 H 96 02/12/20 03:46 02/12/20 03:50 02/12/20 03:46 02/12/20 03:50 02/12/20 00:26 Intake & Output 02/10/20 02/11/20 02/12/20 06:59 06:59 06:59 Intake Total 100 Output Total 625 Balance -525 Weight 56.2 kg General appearance: PRESENT: no acute distress Head exam: PRESENT: atraumatic, normocephalic Eye exam: PRESENT: conjunctiva pink. ABSENT: scleral icterus Mouth exam: PRESENT: moist - fairly. Respiratory exam: PRESENT: clear to auscultation emily, decreased breath sounds - at lung bases Cardiovascular exam: PRESENT: RRR, +S1, +S2. ABSENT: diastolic murmur, rubs, systolic murmur Vascular exam: ABSENT: pallor GI/Abdominal exam: PRESENT: normal bowel sounds, soft. ABSENT: tenderness Neurological exam: PRESENT: alert, awake Psychiatric exam: PRESENT: agitated Skin exam: PRESENT: dry, rash - seborrhea on scalp and face, warm Results Laboratory Results: 02/11/20 14:20 02/11/20 14:20 02/11/20 02/11/20 02/11/20 14:20 14:20 14:20 WBC 4.1 RBC 4.24 L Hgb 13.7 Hct 39.4 MCV 93 MCH 32.4 MCHC 34.8 RDW 13.4 Plt Count 234 Seg Neutrophils % 41.6 L VBG pH 7.35 VBG pCO2 53.2 VBG HCO3 28.6 VBG Base Excess 1.9 Sodium 142.8 Potassium 4.3 Chloride 105 Carbon Dioxide 28 Anion Gap 10 BUN 19 Creatinine 0.71 Est GFR ( Amer) > 60 Glucose 101 Lactic Acid Calcium 9.3 Total Bilirubin 0.7 AST 24 Alkaline Phosphatase 76 Total Protein 6.6 Albumin 3.7 Urine Color Urine Appearance Urine pH Ur Specific [place] Urine Protein Urine Glucose (UA) Urine Ketones Urine Blood Urine Nitrite Ur Leukocyte Esterase Urine WBC (Auto) Urine RBC (Auto) 02/11/20 02/11/20 14:20 14:20 WBC RBC Hgb Hct MCV MCH MCHC RDW Plt Count Seg Neutrophils % VBG pH VBG pCO2 VBG HCO3 VBG Base Excess Sodium Potassium Chloride Carbon Dioxide Anion Gap BUN Creatinine Est GFR ( Amer) Glucose Lactic Acid 1.9 Calcium Total Bilirubin AST Alkaline Phosphatase Total Protein Albumin Urine Color YELLOW Urine Appearance SLIGHTLY-CLOUDY Urine pH 7.0 Ur Specific [place] 1.021 Urine Protein 30 H Urine Glucose (UA) NEGATIVE Urine Ketones NEGATIVE Urine Blood NEGATIVE Urine Nitrite NEGATIVE Ur Leukocyte Esterase NEGATIVE Urine WBC (Auto) 4 Urine RBC (Auto) 3 02/11/20 02/11/20 14:20 14:20 Creatine Kinase 38 L Troponin I < 0.012 Impressions: Chest X-Ray 02/11/20 14:22 IMPRESSION: Minimal left basilar infiltrate most likely atelectasis. Head CT 02/11/20 14:26 IMPRESSION: CHRONIC CHANGES OF ATROPHY AND MICROVASCULAR ISCHEMIA. NO ACUTE PROCESS. EVIDENCE OF ACUTE STROKE: NO. Assessment & Plan - Diagnosis (1) Toxic encephalopathy Is this a current diagnosis for this admission?: Yes (2) Pneumonia Qualifiers: Pneumonia type: due to unspecified organism Laterality: left Lung location: lower lobe of lung Qualified Code(s): J18.9 - Pneumonia, unspecified organism Is this a current diagnosis for this admission?: Yes (3) COVID-19 virus test result unknown Is this a current diagnosis for this admission?: Yes (4) Hypertension Qualifiers: Hypertension type: unspecified Qualified Code(s): I10 - Essential (primary) hypertension Is this a current diagnosis for this admission?: Yes (5) Seborrhea capitis in adult Is this a current diagnosis for this admission?: Yes - Time Time Spent with patient: 25-34 minutes Level of Care: IMCU Medications reviewed and adjusted accordingly: Yes Anticipated discharge: Home with Homehealth, SNF Anticipated DC Timeframe: within 72 hours, when bed available - Inpatient Certification Based on my medical assessment, after consideration of the patient's comorbidities, presenting symptoms, or acuity I expect that the services needed warrant INPATIENT care.: Yes I certify that my determination is in accordance with my understanding of Medicare's requirements for reasonable and necessary INPATIENT services [42 CFR 412.3e].: Yes Medical Necessity: Significant Comorbidiites Make Outpatient Treatment Too Risky, Need Close Monitoring Due to Risk of Patient Decompensation, Need For Continuous Telemetry Monitoring, Need for IV Antibiotics, Risk of Complication if Not Cared For in Hospital, Risk of Diagnosis Which Will Require Inpatient Eval/Care/Monitoring Post Hospital Care: D/C Sharepoint Solutions Architect Documentation, D/C or Transfer Summary - Plan Summary Plan Summary: Increase Losartan to 100 mg daily. Start on IV Haloperidol for agitation management. Bladder irrigation for hematuria. Obtain hemoglobin A1c in view of hyperglycemia. Repeat CBC with diff and BMP in am.
[2020-02-12] MEDS ORDERED: LOSARTAN POTASSIUM 50 MG TABLET PO ONE (19:30)
[2020-02-13] MEDS: CHOLECALCIFEROL (D3) 1,000 UNIT (25 MCG) TABLET PO SCH (10:16)
[2020-02-13] MEDS: KETOCONAZOLE 2% SHAMPOO 120 ML BOTTLE TP SCH (10:16)
[2020-02-13] MEDS: ASCORBIC ACID 500 MG TABLET PO SCH (10:16)
[2020-02-13] MEDS: LOSARTAN POTASSIUM 50 MG TABLET PO SCH (10:16)
[2020-02-13] MEDS: THIAMINE HCL 100 MG TABLET PO SCH (10:16)
[2020-02-13] MEDS: FAMOTIDINE INJ/PF 20 MG/2 ML SDV IV SCH ×2 (10:16→21:03)
[2020-02-13] MEDS: ZINC SULFATE 220 MG CAPSULE PO SCH (10:16)
[2020-02-13] MEDS: MULTIVITS W-MIN/IRON SOLN 60 ML PO SCH (10:16)
[2020-02-13] MEDS: CEFTRIAXONE 1 GM/D5W RTU 1 GM/50 ML RTUPB IV SCH (17:30)
--- NOTE | 2020-02-13 19:59 | PDOC PROGRESS REPORT ---
Subjective Progress Note for:: 02/13/20 Subjective:: Patient seen by the bedside, he is very confused, he was admitted for management of pneumonia, he was in isolation, says Covid infection was rule out. He has a Boudreaux catheter with continuous irrigation with saline but there is no urinary output abdomen is distended, most likely the catheter is not in the urinary bladder. Patient is in restraints. Reason For Visit: TOXIC ENCEPHALOPATHY,COVID-19 PUI,PROBABLE PNEUMON Physical Exam Vital Signs: Temp Pulse Resp BP Pulse Ox 97.8 F 99 16 147/84 H 94 02/13/20 19:46 02/13/20 19:46 02/13/20 19:46 02/13/20 19:46 02/13/20 19:46 Intake & Output 02/12/20 02/13/20 02/14/20 06:59 06:59 06:59 Intake Total 250 4540 4750 Output Total 2075 25732 2600 Balance -9317 -5645 2150 Weight 55.2 kg 55.2 kg General appearance: PRESENT: no acute distress, thin Eye exam: PRESENT: PERRLA Respiratory exam: PRESENT: clear to auscultation emily Cardiovascular exam: PRESENT: +S1, +S2 GI/Abdominal exam: PRESENT: soft Neurological exam: PRESENT: alert, CN II-XII grossly intact Results Laboratory Results: 02/12/20 04:46 02/12/20 04:46 02/11/20 14:20 Boudreaux Catheter Urine Culture - Final NO GROWTH 2 DAYS 02/11/20 02/11/20 14:20 14:20 Creatine Kinase 38 L Troponin I < 0.012 Impressions: Chest X-Ray 02/11/20 14:22 IMPRESSION: Minimal left basilar infiltrate most likely atelectasis. Head CT 02/11/20 14:26 IMPRESSION: CHRONIC CHANGES OF ATROPHY AND MICROVASCULAR ISCHEMIA. NO ACUTE PROCESS. EVIDENCE OF ACUTE STROKE: NO. Assessment & Plan - Diagnosis (1) Pneumonia, unspecified organism Is this a current diagnosis for this admission?: Yes Plan: Continue IV antibiotic (2) Essential (primary) hypertension Is this a current diagnosis for this admission?: Yes (3) Toxic encephalopathy Is this a current diagnosis for this admission?: Yes Plan: Patient remained very confused - Time Time Spent with patient: 25-34 minutes Level of Care: IMCU Medications reviewed and adjusted accordingly: Yes Anticipated discharge: Home Anticipated DC Timeframe: within 72 hours
[2020-02-13 20:35] LABS: ALBUMIN 3.6 g/dL (3.5-5.0); ALKALINE PHOSPHATASE 77 U/L (38-126); ANION GAP 9 (5-19); ASPARTATE AMINO TRANSFERASE 104 U/L (17-59); BILIRUBIN,DIRECT 0.2 mg/dL (0.0-0.4); BILIRUBIN,TOTAL 0.7 mg/dL (0.2-1.3); BLOOD UREA NITROGEN 34 mg/dL (7-20); CALCIUM 9.1 mg/dL (8.4-10.2); CARBON DIOXIDE 28 mmol/L (22-30); CHLORIDE 105 mmol/L (98-107); GLUCOSE 111 mg/dL (75-110); POTASSIUM 3.7 mmol/L (3.6-5.0); TOTAL PROTEIN 6.6 g/dL (6.3-8.2)
[2020-02-14] MEDS: NORMAL SALINE 1000 ML 1,000 ML IV PRN (05:40)
[2020-02-14 08:55] LABS: ALBUMIN 3.4 g/dL (3.5-5.0); ALKALINE PHOSPHATASE 76 U/L (38-126); ANION GAP 11 (5-19); ASPARTATE AMINO TRANSFERASE 87 U/L (17-59); BILIRUBIN,DIRECT 0.2 mg/dL (0.0-0.4); BILIRUBIN,TOTAL 0.8 mg/dL (0.2-1.3); BLOOD UREA NITROGEN 34 mg/dL (7-20); CARBON DIOXIDE 26 mmol/L (22-30); CHLORIDE 105 mmol/L (98-107); GLUCOSE 90 mg/dL (75-110); POTASSIUM 3.8 mmol/L (3.6-5.0); TOTAL PROTEIN 6.1 g/dL (6.3-8.2)
[2020-02-14] MEDS: FAMOTIDINE INJ/PF 20 MG/2 ML SDV IV SCH ×2 (10:59→22:33)
[2020-02-14] MEDS: ENOXAPARIN SODIUM INJ 40 MG/0.4 ML DISP.SYRIN SUBCUT SCH (11:07)
[2020-02-14] MEDS: KETOCONAZOLE 2% SHAMPOO 120 ML BOTTLE TP SCH (11:08)
[2020-02-14] MEDS: LOSARTAN POTASSIUM 50 MG TABLET PO SCH (11:20)
[2020-02-14] MEDS: MULTIVITS W-MIN/IRON SOLN 60 ML PO SCH (11:20)
[2020-02-14] MEDS: THIAMINE HCL 100 MG TABLET PO SCH (11:27)
[2020-02-14] MEDS: ZINC SULFATE 220 MG CAPSULE PO SCH (11:28)
[2020-02-14] MEDS: ASCORBIC ACID 500 MG TABLET PO SCH (11:28)
[2020-02-14] MEDS: CHOLECALCIFEROL (D3) 1,000 UNIT (25 MCG) TABLET PO SCH (11:28)
[2020-02-14] MEDS: CEFTRIAXONE 1 GM/D5W RTU 1 GM/50 ML RTUPB IV SCH (17:18)
--- NOTE | 2020-02-14 22:23 | PDOC PROGRESS REPORT ---
Subjective Progress Note for:: 02/14/20 Subjective:: Patient seen by the bedside, he is very confused, he was admitted for management of pneumonia, he was in isolation, says Covid infection was rule out. He has a Boudreaux catheter with continuous irrigation with saline but there is no urinary output abdomen is distended, most likely the catheter is not in the urinary bladder. Patient is in restraints. 02/14/2020 Patient with no new complaints today seen by the bedside Reason For Visit: TOXIC ENCEPHALOPATHY,COVID-19 PUI,PROBABLE PNEUMON Physical Exam Vital Signs: Temp Pulse Resp BP Pulse Ox 97.4 F 82 19 142/77 H 97 02/14/20 15:50 02/14/20 15:50 02/14/20 15:50 02/14/20 15:50 02/14/20 15:50 Intake & Output 02/13/20 02/14/20 02/15/20 06:59 06:59 06:59 Intake Total 4540 5742 Output Total 64252 5225 2300 Balance -6935 517 -2300 Weight 55.2 kg 53.8 kg General appearance: PRESENT: no acute distress Eye exam: PRESENT: PERRLA Respiratory exam: PRESENT: clear to auscultation emily Cardiovascular exam: PRESENT: +S1, +S2 GI/Abdominal exam: PRESENT: soft Results Laboratory Results: 02/12/20 04:46 02/14/20 08:17 02/14/20 08:17 Sodium 141.7 Potassium 3.8 Chloride 105 Carbon Dioxide 26 Anion Gap 11 BUN 34 H Creatinine 0.89 Est GFR ( Amer) > 60 Glucose 90 Calcium 9.0 Total Bilirubin 0.8 AST 87 H Alkaline Phosphatase 76 Total Protein 6.1 L Albumin 3.4 L 02/11/20 02/11/20 14:20 14:20 Creatine Kinase 38 L Troponin I < 0.012 Impressions: Chest X-Ray 02/11/20 14:22 IMPRESSION: Minimal left basilar infiltrate most likely atelectasis. Head CT 02/11/20 14:26 IMPRESSION: CHRONIC CHANGES OF ATROPHY AND MICROVASCULAR ISCHEMIA. NO ACUTE PROCESS. EVIDENCE OF ACUTE STROKE: NO. Assessment & Plan - Diagnosis (1) Pneumonia, unspecified organism Is this a current diagnosis for this admission?: Yes Plan: Continue IV antibiotic (2) Essential (primary) hypertension Is this a current diagnosis for this admission?: Yes (3) Toxic encephalopathy Is this a current diagnosis for this admission?: Yes Plan: Patient remained very confused - Time Time Spent with patient: 25-34 minutes Level of Care: IMCU Anticipated discharge: Home Anticipated DC Timeframe: within 72 hours - Plan Summary Plan Summary: Patient still on continuous bladder irrigation with saline
[2020-02-15] MEDS: FAMOTIDINE INJ/PF 20 MG/2 ML SDV IV SCH ×2 (09:15→21:58)
[2020-02-15] MEDS: LOSARTAN POTASSIUM 50 MG TABLET PO SCH ×2 (09:19→10:58)
[2020-02-15] MEDS: ASCORBIC ACID 500 MG TABLET PO SCH ×2 (09:19→10:58)
[2020-02-15] MEDS: ZINC SULFATE 220 MG CAPSULE PO SCH ×2 (09:19→10:58)
[2020-02-15] MEDS: THIAMINE HCL 100 MG TABLET PO SCH ×2 (09:19→10:58)
[2020-02-15] MEDS: CHOLECALCIFEROL (D3) 1,000 UNIT (25 MCG) TABLET PO SCH ×2 (09:19→10:58)
[2020-02-15 09:29] LABS: ALKALINE PHOSPHATASE 65 U/L (38-126); ANION GAP 11 (5-19); ASPARTATE AMINO TRANSFERASE 76 U/L (17-59); BILIRUBIN,DIRECT 0.3 mg/dL (0.0-0.4); BILIRUBIN,TOTAL 0.9 mg/dL (0.2-1.3); BLOOD UREA NITROGEN 35 mg/dL (7-20); CALCIUM 8.6 mg/dL (8.4-10.2); CARBON DIOXIDE 27 mmol/L (22-30); CHLORIDE 109 mmol/L (98-107); GLUCOSE 86 mg/dL (75-110); POTASSIUM 3.5 mmol/L (3.6-5.0); TOTAL PROTEIN 5.7 g/dL (6.3-8.2)
[2020-02-15 09:50] LABS: ABSOLUTE MONOCYTES (AUTO) 0.7 10^3/uL (0.1-1.4); BASOPHILS % (AUTO) 0.2 % (0-2); HEMATOCRIT 37.1 % (37.9-51.0); HEMOGLOBIN 12.5 g/dL (13.5-17.0); LYMPHOCYTES % (AUTO) 9.4 % (13-45); MEAN CORPUSCULAR HEMOGLOBIN 31.7 pg (27.0-33.4); MEAN CORPUSCULAR HGB CONC 33.8 g/dL (32.0-36.0); MEAN CORPUSCULAR VOLUME 94 fl (80-97); MONOCYTES % (AUTO) 6.8 % (3-13); PLATELET COUNT 209 10^3/uL (150-450); RED BLOOD COUNT 3.95 10^6/uL (4.35-5.55); RED CELL DISTRIBUTION WIDTH 13.4 % (11.5-14.0); SEGMENTED NEUTROPHILS % (AUTO) 83.6 % (42-78); TOTAL CELLS COUNTED % (AUTO) 100 %; WHITE BLOOD COUNT 10.8 10^3/uL (4.0-10.5)
--- NOTE | 2020-02-15 10:09 | RADIOLOGY REPORT (SQ) ---
EXAM DESCRIPTION: CHEST SINGLE VIEW IMAGES COMPLETED DATE/TIME: 02/15/2020 9:54 am REASON FOR STUDY: R/O Aspiration PNA COMPARISON: 02/11/2020 EXAM PARAMETERS: NUMBER OF VIEWS: One view. TECHNIQUE: Single frontal radiographic view of the chest acquired. RADIATION DOSE: NA LIMITATIONS: None. FINDINGS: LUNGS AND PLEURA: No consolidation or effusions. No evidence of aspiration pneumonia on t he current study. Minimal left basilar atelectasis previously described has resolved. No pneumothor ax. MEDIASTINUM AND HILAR STRUCTURES: No masses. Contour normal. HEART AND VASCULAR STRUCTURES: Heart normal in size. Normal vasculature. BONES: No acute findings. HARDWARE: None in the chest. OTHER: No other significant finding. IMPRESSION: NO ACUTE RADIOGRAPHIC FINDING IN THE CHEST. TECHNICAL DOCUMENTATION: JOB ID: [id number] 2010 [employer]- All Rights Reserved Reading location - IP/workstation name: [email or web address]
[2020-02-15] MEDS: MULTIVITS W-MIN/IRON SOLN 60 ML PO SCH (10:57)
[2020-02-15] MEDS: ENOXAPARIN SODIUM INJ 40 MG/0.4 ML DISP.SYRIN SUBCUT SCH (12:07)
[2020-02-15] MEDS: KETOCONAZOLE 2% SHAMPOO 120 ML BOTTLE TP SCH (12:10)
[2020-02-15] MEDS: CEFTRIAXONE 1 GM/D5W RTU 1 GM/50 ML RTUPB IV SCH (17:28)
--- NOTE | 2020-02-15 21:15 | PDOC PROGRESS REPORT ---
Subjective Progress Note for:: 02/15/20 Subjective:: Patient is very confused, cannot get any history from this patient does not respond to any verbal conversation, he pulled his Boudreaux, resulting in hematuria on CBI, hopefully DC tomorrow once urine clears. Reason For Visit: TOXIC ENCEPHALOPATHY,COVID-19 PUI,PROBABLE PNEUMON Physical Exam Vital Signs: Temp Pulse Resp BP Pulse Ox 98.3 F 84 18 130/94 H 100 02/15/20 15:40 02/15/20 15:40 02/15/20 15:40 02/15/20 15:40 02/15/20 15:40 Intake & Output 02/14/20 02/15/20 02/16/20 06:59 06:59 06:59 Intake Total 5742 50 50 Output Total 5225 5150 4100 Balance 517 -5100 -4050 Weight 53.8 kg 56.1 kg 56.1 kg General appearance: PRESENT: no acute distress Eye exam: PRESENT: PERRLA Respiratory exam: PRESENT: clear to auscultation emily Cardiovascular exam: PRESENT: +S1, +S2 GI/Abdominal exam: PRESENT: soft Neurological exam: PRESENT: altered Results Laboratory Results: 02/15/20 08:52 02/15/20 08:52 02/15/20 02/15/20 08:52 08:52 WBC 10.8 H RBC 3.95 L Hgb 12.5 L Hct 37.1 L MCV 94 MCH 31.7 MCHC 33.8 RDW 13.4 Plt Count 209 Seg Neutrophils % 83.6 H Sodium 147.0 H Potassium 3.5 L Chloride 109 H Carbon Dioxide 27 Anion Gap 11 BUN 35 H Creatinine 0.79 Est GFR ( Amer) > 60 Glucose 86 Calcium 8.6 Total Bilirubin 0.9 AST 76 H Alkaline Phosphatase 65 Total Protein 5.7 L Albumin 3.0 L 02/11/20 14:25 Blood Blood Culture - Final Peptoniphilus Species 02/11/20 02/11/20 14:20 14:20 Creatine Kinase 38 L Troponin I < 0.012 Impressions: Head CT 02/11/20 14:26 IMPRESSION: CHRONIC CHANGES OF ATROPHY AND MICROVASCULAR ISCHEMIA. NO ACUTE PROCESS. EVIDENCE OF ACUTE STROKE: NO. Chest X-Ray 02/15/20 09:22 IMPRESSION: NO ACUTE RADIOGRAPHIC FINDING IN THE CHEST. Assessment & Plan - Diagnosis (1) Pneumonia, unspecified organism Is this a current diagnosis for this admission?: Yes Plan: Continue IV antibiotic (2) Essential (primary) hypertension Is this a current diagnosis for this admission?: Yes (3) Toxic encephalopathy Is this a current diagnosis for this admission?: Yes (4) Traumatic injury of abdomen with gross hematuria Is this a current diagnosis for this admission?: Yes - Time Time Spent with patient: 25-34 minutes Level of Care: IMCU Medications reviewed and adjusted accordingly: Yes Anticipated discharge: Home Anticipated DC Timeframe: Other
[2020-02-16 09:13] LABS: ALBUMIN 3.3 g/dL (3.5-5.0); ALKALINE PHOSPHATASE 73 U/L (38-126); ANION GAP 12 (5-19); ASPARTATE AMINO TRANSFERASE 68 U/L (17-59); BILIRUBIN,DIRECT 0.5 mg/dL (0.0-0.4); BILIRUBIN,TOTAL 1.2 mg/dL (0.2-1.3); BLOOD UREA NITROGEN 29 mg/dL (7-20); CALCIUM 9.1 mg/dL (8.4-10.2); CARBON DIOXIDE 28 mmol/L (22-30); CHLORIDE 111 mmol/L (98-107); GLUCOSE 107 mg/dL (75-110); POTASSIUM 3.7 mmol/L (3.6-5.0); TOTAL PROTEIN 6.2 g/dL (6.3-8.2)
[2020-02-16] MEDS: LOSARTAN POTASSIUM 50 MG TABLET PO SCH (09:19)
[2020-02-16] MEDS: MULTIVITS W-MIN/IRON SOLN 60 ML PO SCH (09:19)
[2020-02-16] MEDS: ZINC SULFATE 220 MG CAPSULE PO SCH (09:20)
[2020-02-16] MEDS: CHOLECALCIFEROL (D3) 1,000 UNIT (25 MCG) TABLET PO SCH (09:20)
[2020-02-16] MEDS: THIAMINE HCL 100 MG TABLET PO SCH (09:20)
[2020-02-16] MEDS: ASCORBIC ACID 500 MG TABLET PO SCH (09:20)
[2020-02-16] MEDS: ENOXAPARIN SODIUM INJ 40 MG/0.4 ML DISP.SYRIN SUBCUT SCH (09:42)
[2020-02-16] MEDS: FAMOTIDINE INJ/PF 20 MG/2 ML SDV IV SCH ×2 (09:43→21:15)
[2020-02-16] MEDS: KETOCONAZOLE 2% SHAMPOO 120 ML BOTTLE TP SCH (10:27)
[2020-02-16] MEDS: NORMAL SALINE 1000 ML 1,000 ML IV PRN (12:00)
[2020-02-16] MEDS ORDERED: DEXTROSE 5%-NORMAL SALINE 1,000 ML IV PRN (14:50)
[2020-02-16] MEDS: CEFTRIAXONE 1 GM/D5W RTU 1 GM/50 ML RTUPB IV SCH (18:12)
[2020-02-16 19:23] LABS: ARTERIAL BLOOD H2CO3 1.36 mmol/L (1.05-1.35); ARTERIAL BLOOD HCO3 29.1 mmol/L (20-24); ARTERIAL BLOOD O2 SATURATION 99.6 % (94-98); ARTERIAL BLOOD PCO2 45.2 mmHg (35-45); ARTERIAL BLOOD PH 7.43 (7.35-7.45); ARTERIAL BLOOD PO2 258.3 mmHg (80-100); ARTERIAL BLOOD TOTAL CO2 30.4 mmol/L (23-27)
[2020-02-16 19:24] LABS: ARTERIAL BLOOD FIO2 15L
[2020-02-17 08:29] LABS: HEMATOCRIT 39.2 % (37.9-51.0); HEMOGLOBIN 13.3 g/dL (13.5-17.0); MEAN CORPUSCULAR HEMOGLOBIN 31.7 pg (27.0-33.4); MEAN CORPUSCULAR HGB CONC 33.9 g/dL (32.0-36.0); MEAN CORPUSCULAR VOLUME 94 fl (80-97); PLATELET COUNT 210 10^3/uL (150-450); RED BLOOD COUNT 4.18 10^6/uL (4.35-5.55); WHITE BLOOD COUNT 11.5 10^3/uL (4.0-10.5)
[2020-02-17 08:53] LABS: ABSOLUTE LYMPHOCYTES# (MANUAL) 0.8 10^3/uL (0.5-4.7); ABSOLUTE MONOCYTES # (MANUAL) 0.7 10^3/uL (0.1-1.4); BASOPHILS % (MANUAL) 0 % (0-2); EOSINOPHILS % (MANUAL) 0 % (0-6); LYMPHOCYTES % (MANUAL) 6 % (13-45); MONOCYTES % (MANUAL) 6 % (3-13); PLATELET COMMENT ADEQUATE; RBC MORPHOLOGY COMMENT NORMO-CYTIC/CHROMIC; SEGMENTED NEUTROPHILS % (MAN) 87 % (42-78); TOTAL CELLS COUNTED 100
[2020-02-17 08:56] LABS: ALBUMIN 3.2 g/dL (3.5-5.0); ALKALINE PHOSPHATASE 78 U/L (38-126); ANION GAP 9 (5-19); ASPARTATE AMINO TRANSFERASE 50 U/L (17-59); BILIRUBIN,DIRECT 0.4 mg/dL (0.0-0.4); BLOOD UREA NITROGEN 27 mg/dL (7-20); CALCIUM 9.3 mg/dL (8.4-10.2); CARBON DIOXIDE 32 mmol/L (22-30); CHLORIDE 115 mmol/L (98-107); GLUCOSE 155 mg/dL (75-110); POTASSIUM 3.8 mmol/L (3.6-5.0); TOTAL PROTEIN 6.2 g/dL (6.3-8.2)
[2020-02-17] MEDS: LOSARTAN POTASSIUM 50 MG TABLET PO SCH (09:04)
[2020-02-17] MEDS: ASCORBIC ACID 500 MG TABLET PO SCH (09:04)
[2020-02-17] MEDS: THIAMINE HCL 100 MG TABLET PO SCH (09:04)
[2020-02-17] MEDS: MULTIVITS W-MIN/IRON SOLN 60 ML PO SCH (09:04)
[2020-02-17] MEDS: ENOXAPARIN SODIUM INJ 40 MG/0.4 ML DISP.SYRIN SUBCUT SCH (09:04)
[2020-02-17] MEDS: CHOLECALCIFEROL (D3) 1,000 UNIT (25 MCG) TABLET PO SCH (09:05)
[2020-02-17] MEDS: ZINC SULFATE 220 MG CAPSULE PO SCH (09:05)
[2020-02-17] MEDS: FAMOTIDINE INJ/PF 20 MG/2 ML SDV IV SCH ×2 (10:59→21:18)
[2020-02-17] MEDS: KETOCONAZOLE 2% SHAMPOO 120 ML BOTTLE TP SCH (11:00)
[2020-02-17] MEDS: DEXTROSE 5%-WATER 1000 ML 1,000 ML IV PRN (12:25)
--- NOTE | 2020-02-17 13:00 | RADIOLOGY REPORT (SQ) ---
EXAM DESCRIPTION: CHEST SINGLE VIEW IMAGES COMPLETED DATE/TIME: 02/17/2020 12:53 pm REASON FOR STUDY: pneumonia COMPARISON: 02/15/2020 FINDINGS: One view chest AP portable upright. 2 images obtained. Slightly different positioning mildly limits. Allowing for this the lungs are relatively clear with stable cardiomediastinal silhouette. TECHNICAL DOCUMENTATION: JOB ID: [id number] Reading location - IP/workstation name: [email or web address]
--- NOTE | 2020-02-17 13:26 | PDOC PROGRESS REPORT ---
Subjective Progress Note for:: 02/17/20 Subjective:: Patient seen by the bedside, he is very confused last night he had a low oxygen saturation he required noninvasive positive pressure ventilation, BiPAP for support of time. Patient is a full code, patient remains confused not engaging in any meaningful conversation. The blood draw today revealed hypernatremia that is a poor sign Reason For Visit: TOXIC ENCEPHALOPATHY,COVID-19 PUI,PROBABLE PNEUMON Physical Exam Vital Signs: Temp Pulse Resp BP Pulse Ox 98.4 F 86 20 157/67 H 98 02/17/20 11:40 02/17/20 11:40 02/17/20 11:40 02/17/20 11:40 02/17/20 11:40 Intake & Output 02/16/20 02/17/20 02/18/20 07:59 06:59 06:59 Intake Total 1000 Output Total Balance 1000 Weight General appearance: PRESENT: no acute distress Eye exam: PRESENT: PERRLA Respiratory exam: PRESENT: rales Cardiovascular exam: PRESENT: +S1, +S2 GI/Abdominal exam: PRESENT: soft Neurological exam: PRESENT: alert, other - confused Results Laboratory Results: 02/17/20 08:11 02/17/20 08:11 02/16/20 02/17/20 02/17/20 19:05 08:11 08:11 WBC 11.5 H RBC 4.18 L Hgb 13.3 L Hct 39.2 MCV 94 MCH 31.7 MCHC 33.9 RDW 13.0 Plt Count 210 Seg Neutrophils % Not Reportable Carbonic Acid 1.36 H HCO3/H2CO3 Ratio 21:1 ABG pH 7.43 ABG pCO2 45.2 H ABG pO2 258.3 H ABG HCO3 29.1 H ABG O2 Saturation 99.6 H ABG Base Excess 4.0 FiO2 15L Sodium 156.3 H Potassium 3.8 Chloride 115 H Carbon Dioxide 32 H Anion Gap 9 BUN 27 H Creatinine 0.69 Est GFR ( Amer) > 60 Glucose 155 H Calcium 9.3 Total Bilirubin 1.0 AST 50 Alkaline Phosphatase 78 Total Protein 6.2 L Albumin 3.2 L 02/11/20 14:20 Blood Blood Culture - Final NO GROWTH IN 5 DAYS 02/11/20 02/11/20 14:20 14:20 Creatine Kinase 38 L Troponin I < 0.012 Impressions: Head CT 02/11/20 14:26 IMPRESSION: CHRONIC CHANGES OF ATROPHY AND MICROVASCULAR ISCHEMIA. NO ACUTE PROCESS. EVIDENCE OF ACUTE STROKE: NO. Assessment & Plan - Diagnosis (1) Pneumonia, unspecified organism Is this a current diagnosis for this admission?: Yes Plan: Continue IV antibiotic,CXR done was negative (2) Essential (primary) hypertension Is this a current diagnosis for this admission?: Yes (3) Toxic encephalopathy Is this a current diagnosis for this admission?: Yes (4) Traumatic injury of abdomen with gross hematuria Is this a current diagnosis for this admission?: Yes (5) Hypernatremia Is this a current diagnosis for this admission?: Yes Plan: start 5% dextrose infusion - Time Time Spent with patient: 35 or more minutes Level of Care: IMCU Anticipated discharge: Home Anticipated DC Timeframe: within 72 hours
[2020-02-17] MEDS: CEFTRIAXONE 1 GM/D5W RTU 1 GM/50 ML RTUPB IV SCH (17:37)
[2020-02-17] MEDS ORDERED: SCOPOLAMINE HYDROBROMIDE 1.5 MG PATCH.TD72 TD SCH (19:00)
[2020-02-17] MEDS ORDERED: SCOPOLAMINE HYDROBROMIDE 1.5 MG PATCH.TD72 ONE (21:51)
[2020-02-18 06:58] LABS: ALBUMIN 3.3 g/dL (3.5-5.0); ALKALINE PHOSPHATASE 82 U/L (38-126); ANION GAP 8 (5-19); ASPARTATE AMINO TRANSFERASE 48 U/L (17-59); BILIRUBIN,DIRECT 0.5 mg/dL (0.0-0.4); BLOOD UREA NITROGEN 27 mg/dL (7-20); CALCIUM 9.3 mg/dL (8.4-10.2); CARBON DIOXIDE 32 mmol/L (22-30); CHLORIDE 113 mmol/L (98-107); GLUCOSE 158 mg/dL (75-110); POTASSIUM 3.7 mmol/L (3.6-5.0); TOTAL PROTEIN 6.1 g/dL (6.3-8.2)
[2020-02-18] MEDS: LOSARTAN POTASSIUM 50 MG TABLET PO SCH (14:04)
[2020-02-18] MEDS: MULTIVITS W-MIN/IRON SOLN 60 ML PO SCH (14:04)
[2020-02-18] MEDS: ASCORBIC ACID 500 MG TABLET PO SCH (14:05)
[2020-02-18] MEDS: THIAMINE HCL 100 MG TABLET PO SCH (14:05)
[2020-02-18] MEDS: CHOLECALCIFEROL (D3) 1,000 UNIT (25 MCG) TABLET PO SCH (14:06)
[2020-02-18] MEDS: ZINC SULFATE 220 MG CAPSULE PO SCH (14:06)
[2020-02-18] MEDS: FAMOTIDINE INJ/PF 20 MG/2 ML SDV IV SCH ×2 (15:46→21:13)
[2020-02-18] MEDS: KETOCONAZOLE 2% SHAMPOO 120 ML BOTTLE TP SCH (15:47)
[2020-02-18] MEDS: CEFTRIAXONE 1 GM/D5W RTU 1 GM/50 ML RTUPB IV SCH (18:31)
[2020-02-19 05:44] LABS: HEMATOCRIT 42.7 % (37.9-51.0); HEMOGLOBIN 14.1 g/dL (13.5-17.0); MEAN CORPUSCULAR VOLUME 94 fl (80-97); PLATELET COUNT 218 10^3/uL (150-450); RED BLOOD COUNT 4.54 10^6/uL (4.35-5.55); RED CELL DISTRIBUTION WIDTH 13.3 % (11.5-14.0); WHITE BLOOD COUNT 11.9 10^3/uL (4.0-10.5)
[2020-02-19] MEDS: DEXTROSE 5%-WATER 1000 ML 1,000 ML IV PRN (05:56)
[2020-02-19 05:57] LABS: ABSOLUTE LYMPHOCYTES# (MANUAL) 1.8 10^3/uL (0.5-4.7); ABSOLUTE MONOCYTES # (MANUAL) 0.6 10^3/uL (0.1-1.4); BASOPHILS % (MANUAL) 0 % (0-2); EOSINOPHILS % (MANUAL) 0 % (0-6); LYMPHOCYTES % (MANUAL) 13 % (13-45); MONOCYTES % (MANUAL) 5 % (3-13); SEGMENTED NEUTROPHILS % (MAN) 80 % (42-78); TOTAL CELLS COUNTED 100
[2020-02-19 05:58] LABS: OVALOCYTES SLIGHT; PLATELET COMMENT ADEQUATE; POIKILOCYTOSIS SLIGHT; TOXIC GRANULATION SLIGHT; TOXIC VACUOLATION PRESENT
--- NOTE | 2020-02-19 09:07 | PDOC PROGRESS REPORT ---
Subjective Progress Note for:: 02/18/20 Subjective:: Patient remain confused and agitated. Demonstrated retain urine on bladder scan with need to reinsert Boudreaux catheter. There is subsequent hematuria and currently on bladder irrigation therapy. No reported fever or difficulty with breathing. Reason For Visit: TOXIC ENCEPHALOPATHY,COVID-19 PUI,PROBABLE PNEUMON Physical Exam Vital Signs: Temp Pulse Resp BP Pulse Ox 98.1 F 79 18 168/78 H 100 02/18/20 16:12 02/18/20 16:12 02/18/20 16:12 02/18/20 16:12 02/18/20 16:23 Intake & Output 02/17/20 02/18/20 02/19/20 06:59 06:59 06:59 Intake Total 1050 Output Total 0 Balance 1050 Weight 55.3 kg General appearance: PRESENT: disheveled Head exam: PRESENT: atraumatic, normocephalic Eye exam: PRESENT: conjunctiva pink. ABSENT: scleral icterus Mouth exam: PRESENT: moist - fairly Respiratory exam: PRESENT: clear to auscultation emily, decreased breath sounds - at lung bases Cardiovascular exam: PRESENT: RRR. ABSENT: diastolic murmur, rubs, systolic murmur Vascular exam: ABSENT: pallor GI/Abdominal exam: PRESENT: normal bowel sounds, soft. ABSENT: tenderness Gentrourinary exam: PRESENT: indwelling catheter Extremities exam: ABSENT: pedal edema Neurological exam: PRESENT: alert, awake Psychiatric exam: PRESENT: agitated Skin exam: PRESENT: dry, warm Results Laboratory Results: 02/17/20 08:11 02/18/20 06:06 02/18/20 06:06 Sodium 153.3 H Potassium 3.7 Chloride 113 H Carbon Dioxide 32 H Anion Gap 8 BUN 27 H Creatinine 0.81 Est GFR ( Amer) > 60 Glucose 158 H Calcium 9.3 Total Bilirubin 1.0 AST 48 Alkaline Phosphatase 82 Total Protein 6.1 L Albumin 3.3 L 02/11/20 02/11/20 14:20 14:20 Creatine Kinase 38 L Troponin I < 0.012 Impressions: Head CT 02/11/20 14:26 IMPRESSION: CHRONIC CHANGES OF ATROPHY AND MICROVASCULAR ISCHEMIA. NO ACUTE PROCESS. EVIDENCE OF ACUTE STROKE: NO. Assessment & Plan - Diagnosis (1) Toxic encephalopathy Is this a current diagnosis for this admission?: Yes (2) Pneumonia Qualifiers: Pneumonia type: due to unspecified organism Laterality: left Lung location: lower lobe of lung Qualified Code(s): J18.9 - Pneumonia, unspecified organism Is this a current diagnosis for this admission?: Yes (3) COVID-19 virus test result unknown Is this a current diagnosis for this admission?: Yes (4) Hypertension Qualifiers: Hypertension type: unspecified Qualified Code(s): I10 - Essential (primary) hypertension Is this a current diagnosis for this admission?: Yes (5) Seborrhea capitis in adult Is this a current diagnosis for this admission?: Yes (6) Urinary retention Is this a current diagnosis for this admission?: Yes Plan: Continue current medical management. D/C Scopolamine usage. (7) Traumatic hematuria Is this a current diagnosis for this admission?: Yes Plan: Maintain on bladder irrigation therapy. Hold off use of Lovenox for DVT p rophylaxis. Maintain on support hose. - Time Time Spent with patient: 25-34 minutes Level of Care: IMCU Medications reviewed and adjusted accordingly: Yes Anticipated discharge: Home with Homehealth, SNF Anticipated DC Timeframe: within 72 hours - Inpatient Certification Based on my medical assessment, after consideration of the patient's comorbidities, presenting symptoms, or acuity I expect that the services needed warrant INPATIENT care.: Yes I certify that my determination is in accordance with my understanding of Medicare's requirements for reasonable and necessary INPATIENT services [42 CFR 412.3e].: Yes Medical Necessity: Significant Comorbidiites Make Outpatient Treatment Too Risky, Need Close Monitoring Due to Risk of Patient Decompensation, Need For IV Fluids, Need For Continuous Telemetry Monitoring, Need for IV Antibiotics, Risk of Complication if Not Cared For in Hospital, Risk of Diagnosis Which Will Require Inpatient Eval/Care/Monitoring Post Hospital Care: D/C Radio Frequency Design Engineer Documentation, D/C or Transfer Summary - Plan Summary Plan Summary: Continue current medication management. Discussed with family regarding resuscitation status. Overall prognosis remain poor.
[2020-02-19] MEDS: FAMOTIDINE INJ/PF 20 MG/2 ML SDV IV SCH ×2 (09:38→21:57)
[2020-02-19] MEDS: KETOCONAZOLE 2% SHAMPOO 120 ML BOTTLE TP SCH (09:39)
[2020-02-19] MEDS: CHOLECALCIFEROL (D3) 1,000 UNIT (25 MCG) TABLET PO SCH (09:40)
[2020-02-19] MEDS: LOSARTAN POTASSIUM 50 MG TABLET PO SCH (09:40)
[2020-02-19] MEDS: ZINC SULFATE 220 MG CAPSULE PO SCH (09:40)
--- NOTE | 2020-02-19 17:40 | PDOC PROGRESS REPORT ---
Subjective Progress Note for:: 02/19/20 Subjective:: Patient remain confused but less agitated at the time of my bedside visit today. Indwelling Boudreaux catheter with julian color urine. No reported fever or difficulty with breathing. Reason For Visit: TOXIC ENCEPHALOPATHY,COVID-19 PUI,PROBABLE PNEUMON Physical Exam Vital Signs: Temp Pulse Resp BP Pulse Ox 98.0 F 77 18 146/72 H 99 02/19/20 15:41 02/19/20 15:41 02/19/20 15:41 02/19/20 15:41 02/19/20 15:41 Intake & Output 02/18/20 02/19/20 02/20/20 06:59 06:59 06:59 Intake Total 1050 9900 Output Total 0 87595 2900 Balance 1050 -275 -2900 Weight 55.3 kg 55.3 kg Physical Exam: General appearance: PRESENT: disheveled Head exam: PRESENT: atraumatic, normocephalic Eye exam: PRESENT: conjunctiva pink. ABSENT: pallor, scleral icterus Mouth exam: PRESENT: moist - fairly Respiratory exam: PRESENT: clear to auscultation emily, decreased breath sounds - at lung bases Cardiovascular exam: PRESENT: RRR. ABSENT: diastolic murmur, rubs, systolic murmur GI/Abdominal exam: PRESENT: normal bowel sounds, soft. ABSENT: tenderness Gentrourinary exam: PRESENT: indwelling catheter Extremities exam: ABSENT: pedal edema Neurological exam: PRESENT: alert, awake Psychiatric exam: PRESENT: agitated Skin exam: PRESENT: dry, warm Results Laboratory Results: 02/19/20 05:14 02/19/20 05:14 02/19/20 02/19/20 05:14 05:14 WBC 11.9 H RBC 4.54 Hgb 14.1 Hct 42.7 MCV 94 MCH 31.0 MCHC 33.0 RDW 13.3 Plt Count 218 Seg Neutrophils % Not Reportable Sodium Cancelled Potassium Cancelled Chloride Cancelled Carbon Dioxide Cancelled Anion Gap Cancelled BUN Cancelled Creatinine Cancelled Est GFR ( Amer) Cancelled Est GFR (Non-Af Amer) Cancelled Glucose Cancelled Calcium Cancelled Total Bilirubin Cancelled AST Cancelled Alkaline Phosphatase Cancelled Total Protein Cancelled Albumin Cancelled 02/11/20 02/11/20 14:20 14:20 Creatine Kinase 38 L Troponin I < 0.012 Impressions: Head CT 02/11/20 14:26 IMPRESSION: CHRONIC CHANGES OF ATROPHY AND MICROVASCULAR ISCHEMIA. NO ACUTE PROCESS. EVIDENCE OF ACUTE STROKE: NO. Assessment & Plan - Diagnosis (1) Toxic encephalopathy Is this a current diagnosis for this admission?: Yes (2) Pneumonia Qualifiers: Pneumonia type: due to unspecified organism Laterality: left Lung location: lower lobe of lung Qualified Code(s): J18.9 - Pneumonia, unspecified organism Is this a current diagnosis for this admission?: Yes (3) COVID-19 virus test result unknown Is this a current diagnosis for this admission?: Yes (4) Hypertension Qualifiers: Hypertension type: unspecified Qualified Code(s): I10 - Essential (primary) hypertension Is this a current diagnosis for this admission?: Yes (5) Seborrhea capitis in adult Is this a current diagnosis for this admission?: Yes (6) Urinary retention Is this a current diagnosis for this admission?: Yes (7) Traumatic hematuria Is this a current diagnosis for this admission?: Yes - Time Time Spent with patient: 25-34 minutes Level of Care: IMCU Medications reviewed and adjusted accordingly: Yes Anticipated discharge: SNF Anticipated DC Timeframe: within 72 hours - Inpatient Certification Based on my medical assessment, after consideration of the patient's comorbidities, presenting symptoms, or acuity I expect that the services needed warrant INPATIENT care.: Yes I certify that my determination is in accordance with my understanding of Medicare's requirements for reasonable and necessary INPATIENT services [42 CFR 412.3e].: Yes Medical Necessity: Significant Comorbidiites Make Outpatient Treatment Too Risky, Need Close Monitoring Due to Risk of Patient Decompensation, Need For IV Fluids, Need For Continuous Telemetry Monitoring, Need for IV Antibiotics, Risk of Complication if Not Cared For in Hospital, Risk of Diagnosis Which Will Require Inpatient Eval/Care/Monitoring Post Hospital Care: D/C or Transfer Summary - Plan Summary Plan Summary: Continue current medication management. His Scopolamine patch has been d/c. I discussed his prognosis with daughter Debby Short and family want him on DNR status at this time.
--- NOTE | 2020-02-19 17:42 | ADVANCED CARE ---
- Diagnosis (1) Toxic encephalopathy Diagnosis Current: Yes (2) Pneumonia Diagnosis Current: Yes (3) COVID-19 virus test result unknown Diagnosis Current: Yes (4) Hypertension Diagnosis Current: Yes (5) Seborrhea capitis in adult Diagnosis Current: Yes (6) Urinary retention Diagnosis Current: Yes (7) Traumatic hematuria Diagnosis Current: Yes Attendance: Daughter, Debby Short as family surgical sales representative. Resuscitation Status: Do Not Resuscitate Discussion: Patient's prognosis remain poor. Family agreeable to make him DNR status. Care Planning Goals: DNR with efforts presently directed to improving his medical condition. Document(s) Completed: Yes. Time Spent: 15 mins.
[2020-02-19] MEDS: NORMAL SALINE 1000 ML 1,000 ML with POTASSIUM CHLORIDE 20 MEQ, MAGNESIUM SULFATE 8 MEQ,... IV SCH ×5 (18:15)
[2020-02-20] MEDS: DEXTROSE 5%-WATER 1000 ML 1,000 ML IV PRN ×2 (02:34→22:47)
[2020-02-20] MEDS: LOSARTAN POTASSIUM 50 MG TABLET PO SCH (11:37)
[2020-02-20] MEDS: CHOLECALCIFEROL (D3) 1,000 UNIT (25 MCG) TABLET PO SCH (11:37)
[2020-02-20] MEDS: ZINC SULFATE 220 MG CAPSULE PO SCH (11:37)
[2020-02-20] MEDS: KETOCONAZOLE 2% SHAMPOO 120 ML BOTTLE TP SCH (11:49)
[2020-02-20] MEDS: FAMOTIDINE INJ/PF 20 MG/2 ML SDV IV SCH ×2 (11:49→22:45)
[2020-02-20] MEDS: NORMAL SALINE 1000 ML 1,000 ML with POTASSIUM CHLORIDE 20 MEQ, MAGNESIUM SULFATE 8 MEQ,... IV SCH ×5 (18:46)
[2020-02-21] MEDS: HALOPERIDOL LACTATE INJ 5 MG/1 ML VIAL IV PRN ×2 (03:28→21:34)
--- NOTE | 2020-02-21 08:30 | PDOC PROGRESS REPORT ---
Subjective Progress Note for:: 02/20/20 Subjective:: Patient remain confused and less agitated. Indwelling Boudreaux catheter with clear urine. No hematuria with bladder irrigation in progress. No reported fever or difficulty with breathing. Reason For Visit: TOXIC ENCEPHALOPATHY,COVID-19 PUI,PROBABLE PNEUMON Physical Exam Vital Signs: Temp Pulse Resp BP Pulse Ox 98.4 F 67 16 149/68 H 100 02/20/20 11:37 02/20/20 11:37 02/20/20 11:37 02/20/20 11:37 02/20/20 11:37 Intake & Output 02/19/20 02/20/20 02/21/20 06:59 06:59 06:59 Intake Total 9900 1000 1023 Output Total 64547 3900 Balance -275 -2900 1023 Weight 55.3 kg 55.5 kg Physical Exam: General appearance: PRESENT: disheveled Head exam: PRESENT: atraumatic, normocephalic Eye exam: PRESENT: conjunctiva pink. ABSENT: pallor, sclera icterus Mouth exam: PRESENT: moist - fairly Respiratory exam: PRESENT: clear to auscultation emily, decreased breath sounds - at lung bases Cardiovascular exam: PRESENT: RRR. ABSENT: diastolic murmur, rubs, systolic murmur GI/Abdominal exam: PRESENT: normal bowel sounds, soft. ABSENT: tenderness Genitourinary exam: PRESENT: indwelling catheter with bladder irrigation process due to hematuria. Extremities exam: ABSENT: pedal edema Neurological exam: PRESENT: alert, awake Psychiatric exam: PRESENT: agitated Skin exam: PRESENT: dry, warm Results Laboratory Results: 02/19/20 05:14 02/19/20 05:14 02/11/20 02/11/20 14:20 14:20 Creatine Kinase 38 L Troponin I < 0.012 Impressions: Head CT 02/11/20 14:26 IMPRESSION: CHRONIC CHANGES OF ATROPHY AND MICROVASCULAR ISCHEMIA. NO ACUTE PROCESS. EVIDENCE OF ACUTE STROKE: NO. Assessment & Plan - Diagnosis (1) Toxic encephalopathy Is this a current diagnosis for this admission?: Yes (2) Pneumonia Qualifiers: Pneumonia type: due to unspecified organism Laterality: left Lung location: lower lobe of lung Qualified Code(s): J18.9 - Pneumonia, unspecified organism Is this a current diagnosis for this admission?: Yes (3) COVID-19 virus test result unknown Is this a current diagnosis for this admission?: Yes (4) Hypertension Qualifiers: Hypertension type: unspecified Qualified Code(s): I10 - Essential (primary) hypertension Is this a current diagnosis for this admission?: Yes (5) Seborrhea capitis in adult Is this a current diagnosis for this admission?: Yes (6) Urinary retention Is this a current diagnosis for this admission?: Yes (7) Traumatic hematuria Is this a current diagnosis for this admission?: Yes - Time Time Spent with patient: 25-34 minutes Level of Care: IMCU Medications reviewed and adjusted accordingly: Yes Anticipated discharge: Home with Homehealth, SNF Anticipated DC Timeframe: within 72 hours - Inpatient Certification Based on my medical assessment, after consideration of the patient's comorbidities, presenting symptoms, or acuity I expect that the services needed warrant INPATIENT care.: Yes I certify that my determination is in accordance with my understanding of Medicare's requirements for reasonable and necessary INPATIENT services [42 CFR 412.3e].: Yes Medical Necessity: Significant Comorbidiites Make Outpatient Treatment Too Risky, Need Close Monitoring Due to Risk of Patient Decompensation, Need For IV Fluids, Need For Continuous Telemetry Monitoring, Need for IV Antibiotics, Risk of Complication if Not Cared For in Hospital, Risk of Diagnosis Which Will Require Inpatient Eval/Care/Monitoring Post Hospital Care: D/C Awning Finisher Documentation, D/C or Transfer Summary - Plan Summary Plan Summary: Continue current medication management. Hopefully with improving wakefulness we will try patient on clear liquid in am. Overall prognosis remain poor.
[2020-02-21] MEDS: CHOLECALCIFEROL (D3) 1,000 UNIT (25 MCG) TABLET PO SCH (10:09)
[2020-02-21] MEDS: LOSARTAN POTASSIUM 50 MG TABLET PO SCH (10:09)
[2020-02-21] MEDS: KETOCONAZOLE 2% SHAMPOO 120 ML BOTTLE TP SCH (10:10)
[2020-02-21] MEDS: ZINC SULFATE 220 MG CAPSULE PO SCH (10:10)
[2020-02-21] MEDS: FAMOTIDINE INJ/PF 20 MG/2 ML SDV IV SCH ×2 (10:11→21:44)
--- NOTE | 2020-02-21 13:02 | PDOC PROGRESS REPORT ---
Subjective Progress Note for:: 02/21/20 Subjective:: Son at bedside. Patient remain confused and less agitated. No reported fever or difficulty with breathing. Indwelling Boudreaux catheter with clear urine. Reason For Visit: TOXIC ENCEPHALOPATHY,COVID-19 PUI,PROBABLE PNEUMON Physical Exam Vital Signs: Temp Pulse Resp BP Pulse Ox 98.6 F 80 31 H 156/83 H 100 02/21/20 03:19 02/21/20 07:00 02/21/20 03:19 02/21/20 03:19 02/20/20 15:12 Intake & Output 02/20/20 02/21/20 02/22/20 06:59 06:59 06:59 Intake Total 1000 2023 Output Total 3900 1300 Balance -2900 723 Weight 55.5 kg 56.1 kg Physical Exam: General appearance: PRESENT: thin, confused Head exam: PRESENT: atraumatic, normocephalic Eye exam: PRESENT: conjunctiva pink. ABSENT: pallor, sclera icterus Mouth exam: PRESENT: moist - fairly Respiratory exam: PRESENT: clear to auscultation emily, decreased breath sounds - at lung bases Cardiovascular exam: PRESENT: RRR. ABSENT: diastolic murmur, rubs, systolic murmur GI/Abdominal exam: PRESENT: normal bowel sounds, soft. ABSENT: tenderness Genitourinary exam: PRESENT: indwelling catheter with bladder irrigation process due to hematuria. Extremities exam: ABSENT: pedal edema Neurological exam: PRESENT: alert, awake Psychiatric exam: PRESENT: agitated Skin exam: PRESENT: dry, warm Results Laboratory Results: 02/19/20 05:14 02/19/20 05:14 02/11/20 02/11/20 14:20 14:20 Creatine Kinase 38 L Troponin I < 0.012 Impressions: Head CT 02/11/20 14:26 IMPRESSION: CHRONIC CHANGES OF ATROPHY AND MICROVASCULAR ISCHEMIA. NO ACUTE PROCESS. EVIDENCE OF ACUTE STROKE: NO. Assessment & Plan - Diagnosis (1) Toxic encephalopathy Is this a current diagnosis for this admission?: Yes (2) Pneumonia Qualifiers: Pneumonia type: due to unspecified organism Laterality: left Lung location: lower lobe of lung Qualified Code(s): J18.9 - Pneumonia, unspecified organism Is this a current diagnosis for this admission?: Yes (3) COVID-19 virus test result unknown Is this a current diagnosis for this admission?: Yes (4) Hypertension Qualifiers: Hypertension type: unspecified Qualified Code(s): I10 - Essential (primary) hypertension Is this a current diagnosis for this admission?: Yes (5) Seborrhea capitis in adult Is this a current diagnosis for this admission?: Yes (6) Urinary retention Is this a current diagnosis for this admission?: Yes (7) Traumatic hematuria Is this a current diagnosis for this admission?: Yes - Time Time Spent with patient: 25-34 minutes Level of Care: IMCU Medications reviewed and adjusted accordingly: Yes Anticipated discharge: SNF Anticipated DC Timeframe: within 72 hours - Inpatient Certification Based on my medical assessment, after consideration of the patient's comorbi dities, presenting symptoms, or acuity I expect that the services needed warrant INPATIENT care.: Yes I certify that my determination is in accordance with my understanding of Medicare's requirements for reasonable and necessary INPATIENT services [42 CFR 412.3e].: Yes Medical Necessity: Significant Comorbidiites Make Outpatient Treatment Too Risky, Need Close Monitoring Due to Risk of Patient Decompensation, Need For IV Fluids, Need For Continuous Telemetry Monitoring, Risk of Complication if Not Cared For in Hospital, Risk of Diagnosis Which Will Require Inpatient Eval/Care/Monitoring Post Hospital Care: D/C or Transfer Summary - Plan Summary Plan Summary: Start on trial of clear liquid food. Maintain on al other current medication management. Overall prognosis remain poor. I had extensive discussion with daughter and son in recent time and made aware of patient's poor prognosis due to underlying dementia, superimposed delirium, and acute illness.
[2020-02-21] MEDS ORDERED: INFLUENZA QUAD (6MOS+) 2020-21 VAC 0.5 ML SYR IM ONE (15:45)
[2020-02-21] MEDS: DEXTROSE 5%-WATER 1000 ML 1,000 ML IV PRN (21:37)
[2020-02-21] MEDS: NORMAL SALINE 1000 ML 1,000 ML with POTASSIUM CHLORIDE 20 MEQ, MAGNESIUM SULFATE 8 MEQ,... IV SCH ×5 (21:43)
[2020-02-22] MEDS: CHOLECALCIFEROL (D3) 1,000 UNIT (25 MCG) TABLET PO SCH (10:00)
[2020-02-22] MEDS: LOSARTAN POTASSIUM 50 MG TABLET PO SCH (10:00)
[2020-02-22] MEDS: ZINC SULFATE 220 MG CAPSULE PO SCH (10:00)
[2020-02-22] MEDS: KETOCONAZOLE 2% SHAMPOO 120 ML BOTTLE TP SCH (10:45)
[2020-02-22] MEDS: FAMOTIDINE INJ/PF 20 MG/2 ML SDV IV SCH ×2 (10:45→22:11)
[2020-02-22] MEDS: DEXTROSE 5%-WATER 1000 ML 1,000 ML IV PRN (16:05)
[2020-02-22] MEDS ORDERED: GUAIFENESIN/D-METHORPHAN (200-20 MG) SYRUP 10 ML PO PRN (16:38)
--- NOTE | 2020-02-22 17:16 | PDOC PROGRESS REPORT ---
Subjective Progress Note for:: 02/22/20 Subjective:: Patient is more lucid and appropriate today. Tolerated oral feeding with Ensure. No reported fever or difficulty with breathing. Indwelling Boudreaux catheter with clear urine. I had extensive discussion with son at bedside regarding care plan and expectations. Reason For Visit: TOXIC ENCEPHALOPATHY,COVID-19 PUI,PROBABLE PNEUMON Physical Exam Vital Signs: Temp Pulse Resp BP Pulse Ox 97.9 F 74 20 125/72 100 02/22/20 10:00 02/22/20 08:22 02/22/20 08:22 02/22/20 08:22 02/22/20 08:22 Intake & Output 02/21/20 02/22/20 02/23/20 06:59 06:59 06:59 Intake Total 3046 1000 1946 Output Total 1300 550 Balance 4761 827 9439 Weight 56.1 kg 56.8 kg Physical Exam: General appearance: PRESENT: thin, less confused Head exam: PRESENT: atraumatic, normocephalic Eye exam: PRESENT: conjunctiva pink. ABSENT: pallor, sclera icterus Mouth exam: PRESENT: fairly moist Respiratory exam: PRESENT: clear to auscultation emily, decreased breath sounds - at lung bases Cardiovascular exam: PRESENT: RRR. ABSENT: diastolic murmur, rubs, systolic murmur GI/Abdominal exam: PRESENT: normal bowel sounds, soft. ABSENT: tenderness Genitourinary exam: PRESENT: indwelling catheter. Extremities exam: ABSENT: pedal edema Neurological exam: PRESENT: alert, awake Psychiatric exam: PRESENT: agitated Skin exam: PRESENT: dry, warm Results Laboratory Results: 02/19/20 05:14 02/19/20 05:14 02/11/20 02/11/20 14:20 14:20 Creatine Kinase 38 L Troponin I < 0.012 Impressions: Head CT 02/11/20 14:26 IMPRESSION: CHRONIC CHANGES OF ATROPHY AND MICROVASCULAR ISCHEMIA. NO ACUTE PROCESS. EVIDENCE OF ACUTE STROKE: NO. Assessment & Plan - Diagnosis (1) Toxic encephalopathy Is this a current diagnosis for this admission?: Yes (2) Pneumonia Qualifiers: Pneumonia type: due to unspecified organism Laterality: left Lung location: lower lobe of lung Qualified Code(s): J18.9 - Pneumonia, unspecified organism Is this a current diagnosis for this admission?: Yes (3) COVID-19 virus test result unknown Is this a current diagnosis for this admission?: Yes (4) Hypertension Qualifiers: Hypertension type: unspecified Qualified Code(s): I10 - Essential (primary) hypertension Is this a current diagnosis for this admission?: Yes (5) Seborrhea capitis in adult Is this a current diagnosis for this admission?: Yes (6) Urinary retention Is this a current diagnosis for this admission?: Yes (7) Traumatic hematuria Is this a current diagnosis for this admission?: Yes - Time Time Spent with patient: 25-34 minutes Level of Care: IMCU Medications reviewed and adjusted accordingly: Yes Anticipated discharge: Home with Homehealth, SNF Anticipated DC Timeframe: within 72 hours - Inpatient Certification Based on my medical assessment, after consideration of the patient's comorbidities, presenting symptoms, or acuity I expect that the services needed warrant INPATIENT care.: Yes I certify that my determination is in accordance with my understanding of Medicare's requirements for reasonable and necessary INPATIENT services [42 CFR 412.3e].: Yes Medical Necessity: Significant Comorbidiites Make Outpatient Treatment Too Risky, Need Close Monitoring Due to Risk of Patient Decompensation, Need For IV Fluids, Need For Continuous Telemetry Monitoring, Risk of Complication if Not Cared For in Hospital, Risk of Diagnosis Which Will Require Inpatient Eval/Care/Monitoring Post Hospital Care: D/C Marketing Communications Associate Documentation, D/C or Transfer Summary - Plan Summary Plan Summary: Continue current medication management. Advance diet to full liquid with Ensure pudding as tolerated. Overall prognosis remain poor.
[2020-02-22] MEDS: NORMAL SALINE 1000 ML 1,000 ML with POTASSIUM CHLORIDE 20 MEQ, MAGNESIUM SULFATE 8 MEQ,... IV SCH ×5 (17:21)
--- NOTE | 2020-02-23 09:44 | PDOC PROGRESS REPORT ---
Subjective Progress Note for:: 02/23/20 Subjective:: Patient p.o. intake is still very poor Patient is alert but not oriented According to the nursing staff's nothing change Reason For Visit: TOXIC ENCEPHALOPATHY,COVID-19 PUI,PROBABLE PNEUMON Physical Exam Vital Signs: Temp Pulse Resp BP Pulse Ox 97.8 F 72 16 116/53 L 95 02/23/20 08:14 02/23/20 08:14 02/23/20 08:14 02/23/20 08:14 02/23/20 08:14 Intake & Output 02/22/20 02/23/20 02/24/20 06:59 06:59 06:59 Intake Total 1000 2969 Output Total 550 500 Balance 450 2469 Weight 56.8 kg 58.5 kg General appearance: PRESENT: no acute distress Eye exam: PRESENT: PERRLA Mouth exam: PRESENT: neck supple Respiratory exam: PRESENT: clear to auscultation emily Cardiovascular exam: PRESENT: +S1, +S2 GI/Abdominal exam: PRESENT: normal bowel sounds, soft Neurological exam: PRESENT: alert, altered Results Laboratory Results: 02/19/20 05:14 02/19/20 05:14 02/11/20 02/11/20 14:20 14:20 Creatine Kinase 38 L Troponin I < 0.012 Impressions: Head CT 02/11/20 14:26 IMPRESSION: CHRONIC CHANGES OF ATROPHY AND MICROVASCULAR ISCHEMIA. NO ACUTE PROCESS. EVIDENCE OF ACUTE STROKE: NO. Assessment & Plan - Diagnosis (1) Essential (primary) hypertension Is this a current diagnosis for this admission?: Yes (2) Hypertension Qualifiers: Hypertension type: unspecified Qualified Code(s): I10 - Essential (primary) hypertension Is this a current diagnosis for this admission?: Yes (3) Pneumonia Qualifiers: Pneumonia type: due to unspecified organism Laterality: left Lung location: lower lobe of lung Qualified Code(s): J18.9 - Pneumonia, unspecified organism Is this a current diagnosis for this admission?: Yes (4) Toxic encephalopathy Is this a current diagnosis for this admission?: Yes - Time Time Spent with patient: 15-24 minutes Level of Care: IMCU Medications reviewed and adjusted accordingly: Yes Anticipated discharge: SNF Anticipated DC Timeframe: Other - Plan Summary Plan Summary: Overall patient's failure to thrive is encouraged more p.o. intakes aspirations precautions
[2020-02-23] MEDS ORDERED: DEXTROSE 50%-WATER 25 GM/50 ML DISP.SYRIN IV PRN ×2 (09:54)
[2020-02-23] MEDS ORDERED: GLUCAGON,HUMAN RECOMB 1 MG INJ SUBCUT PRN (09:54)
[2020-02-23] MEDS ORDERED: DEXTROSE 40% GEL 15 GM TUBE PO PRN ×2 (09:54)
[2020-02-23] MEDS: LOSARTAN POTASSIUM 50 MG TABLET PO SCH (09:59)
[2020-02-23] MEDS: ZINC SULFATE 220 MG CAPSULE PO SCH (10:00)
[2020-02-23] MEDS: CHOLECALCIFEROL (D3) 1,000 UNIT (25 MCG) TABLET PO SCH (10:00)
[2020-02-23] MEDS: FAMOTIDINE INJ/PF 20 MG/2 ML SDV IV SCH ×2 (10:04→22:48)
[2020-02-23] MEDS: KETOCONAZOLE 2% SHAMPOO 120 ML BOTTLE TP SCH (10:07)
[2020-02-23] MEDS: DEXTROSE 5%-WATER 1000 ML 1,000 ML IV PRN (10:34)
--- NOTE | 2020-02-23 10:54 | RADIOLOGY REPORT (SQ) ---
EXAM DESCRIPTION: CHEST SINGLE VIEW IMAGES COMPLETED DATE/TIME: 02/23/2020 10:38 am REASON FOR STUDY: possible aspiration COMPARISON: 02/17/2020 EXAM PARAMETERS: NUMBER OF VIEWS: One view. TECHNIQUE: Single frontal radiographic view of the chest acquired. RADIATION DOSE: NA LIMITATIONS: None. FINDINGS: LUNGS AND PLEURA: Parenchymal opacity at the right base. Left lung is clear. MEDIASTINUM AND HILAR STRUCTURES: No masses. Contour normal. HEART AND VASCULAR STRUCTURES: Heart normal in size. Normal vasculature. BONES: No acute findings. HARDWARE: None in the chest. OTHER: No other significant finding. IMPRESSION: Right lung pneumonia consistent with the clinical concern for aspiration. TECHNICAL DOCUMENTATION: JOB ID: [id number] 2010 [employer]- All Rights Reserved Reading location - IP/workstation name: [email or web address]
[2020-02-23] MEDS ORDERED: IPRATROPIUM/ALBUTEROL 0.5-2.5 MG/3 ML AMPUL NEB PRN (11:22)
[2020-02-23] MEDS: CEFEPIME 1 GM/D5W RTU 1 GM/50 ML RTUPB IV SCH (13:36)
[2020-02-23] MEDS ORDERED: ACETAMINOPHEN 650 MG SUPP.RECT PR ONE (17:14)
[2020-02-23] MEDS ORDERED: ACETAMINOPHEN 650 MG SUPP.RECT PR PRN (17:26)
[2020-02-23] MEDS: NORMAL SALINE 1000 ML 1,000 ML with POTASSIUM CHLORIDE 20 MEQ, MAGNESIUM SULFATE 8 MEQ,... IV SCH ×5 (17:43)
[2020-02-24] MEDS: CEFEPIME 1 GM/D5W RTU 1 GM/50 ML RTUPB IV SCH ×2 (01:00→13:05)
--- NOTE | 2020-02-24 09:44 | PDOC PROGRESS REPORT ---
Subjective Progress Note for:: 02/24/20 Subjective:: Patient's chest x-ray consistent with aspiration pneumonia start on IV cefepime yesterday Currently the 2 L nasal cannula Currently on n.p.o. Reason For Visit: TOXIC ENCEPHALOPATHY,COVID-19 PUI,PROBABLE PNEUMON Physical Exam Vital Signs: Temp Pulse Resp BP Pulse Ox 97.4 F 120 H 20 129/72 H 100 02/24/20 08:49 02/24/20 08:40 02/24/20 08:40 02/24/20 08:40 02/24/20 08:40 Intake & Output 02/23/20 02/24/20 02/25/20 06:59 06:59 06:59 Intake Total 2969 1758 Output Total 500 335 Balance 2469 1423 Weight 58.5 kg 59.2 kg General appearance: PRESENT: no acute distress Eye exam: PRESENT: PERRLA Mouth exam: PRESENT: neck supple Respiratory exam: PRESENT: clear to auscultation emily Cardiovascular exam: PRESENT: +S1, +S2 GI/Abdominal exam: PRESENT: normal bowel sounds, soft Neurological exam: PRESENT: alert Results Laboratory Results: 02/19/20 05:14 02/19/20 05:14 02/11/20 02/11/20 14:20 14:20 Creatine Kinase 38 L Troponin I < 0.012 Impressions: Head CT 02/11/20 14:26 IMPRESSION: CHRONIC CHANGES OF ATROPHY AND MICROVASCULAR ISCHEMIA. NO ACUTE PROCESS. EVIDENCE OF ACUTE STROKE: NO. Chest X-Ray 02/23/20 00:00 IMPRESSION: Right lung pneumonia consistent with the clinical concern for aspiration. Assessment & Plan - Diagnosis (1) Essential (primary) hypertension Is this a current diagnosis for this admission?: Yes (2) Hypertension Qualifiers: Hypertension type: unspecified Qualified Code(s): I10 - Essential (primary) hypertension Is this a current diagnosis for this admission?: Yes (3) Pneumonia Qualifiers: Pneumonia type: due to unspecified organism Laterality: left Lung location: lower lobe of lung Qualified Code(s): J18.9 - Pneumonia, unspecified organism Is this a current diagnosis for this admission?: Yes (4) Toxic encephalopathy Is this a current diagnosis for this admission?: Yes - Time Time Spent with patient: 15-24 minutes Level of Care: IMCU Medications reviewed and adjusted accordingly: Yes Anticipated discharge: Other Anticipated DC Timeframe: Other - Plan Summary Plan Summary: Continues to IV antibiotic Continues to n.p.o. Do the modified barium swallow in the morning Aspirations precautions IV fluid
[2020-02-24] MEDS: LOSARTAN POTASSIUM 50 MG TABLET PO SCH (10:24)
[2020-02-24] MEDS: CHOLECALCIFEROL (D3) 1,000 UNIT (25 MCG) TABLET PO SCH (10:25)
[2020-02-24] MEDS: ZINC SULFATE 220 MG CAPSULE PO SCH (10:25)
[2020-02-24] MEDS: KETOCONAZOLE 2% SHAMPOO 120 ML BOTTLE TP SCH (10:29)
[2020-02-24] MEDS: FAMOTIDINE INJ/PF 20 MG/2 ML SDV IV SCH ×2 (10:40→21:12)
[2020-02-24] MEDS: NORMAL SALINE 1000 ML 1,000 ML with POTASSIUM CHLORIDE 20 MEQ, MAGNESIUM SULFATE 8 MEQ,... IV SCH ×5 (17:53)
[2020-02-24] MEDS: DEXTROSE 5%-WATER 1000 ML 1,000 ML IV PRN (17:54)
[2020-02-25] MEDS: CEFEPIME 1 GM/D5W RTU 1 GM/50 ML RTUPB IV SCH ×3 (00:17→23:07)
[2020-02-25 06:51] LABS: ABSOLUTE BASOPHILS # (AUTO) 0.1 10^3/uL (0.0-0.2); ABSOLUTE LYMPHOCYTES (AUTO) 0.7 10^3/uL (0.5-4.7); ABSOLUTE MONOCYTES (AUTO) 0.6 10^3/uL (0.1-1.4); ABSOLUTE NEUT (AUTO) 11.1 10^3/uL (1.7-8.2); BASOPHILS % (AUTO) 0.6 % (0-2); EOSINOPHILS % (AUTO) 0.2 % (0-6); HEMATOCRIT 31.3 % (37.9-51.0); HEMOGLOBIN 10.8 g/dL (13.5-17.0); LYMPHOCYTES % (AUTO) 5.5 % (13-45); MEAN CORPUSCULAR HEMOGLOBIN 31.9 pg (27.0-33.4); MEAN CORPUSCULAR HGB CONC 34.4 g/dL (32.0-36.0); MEAN CORPUSCULAR VOLUME 93 fl (80-97); PLATELET COUNT 230 10^3/uL (150-450); RED BLOOD COUNT 3.39 10^6/uL (4.35-5.55); SEGMENTED NEUTROPHILS % (AUTO) 88.7 % (42-78); TOTAL CELLS COUNTED % (AUTO) 100 %; WHITE BLOOD COUNT 12.5 10^3/uL (4.0-10.5)
[2020-02-25 07:10] LABS: ANION GAP 5 (5-19); BLOOD UREA NITROGEN 10 mg/dL (7-20); CALCIUM 7.8 mg/dL (8.4-10.2); CARBON DIOXIDE 28 mmol/L (22-30); CHLORIDE 105 mmol/L (98-107); GLUCOSE 119 mg/dL (75-110)
[2020-02-25] MEDS: DEXTROSE 5%-WATER 1000 ML 1,000 ML IV PRN (08:30)
[2020-02-25] MEDS: CHOLECALCIFEROL (D3) 1,000 UNIT (25 MCG) TABLET PO SCH (09:40)
[2020-02-25] MEDS: LOSARTAN POTASSIUM 50 MG TABLET PO SCH (09:40)
[2020-02-25] MEDS: FAMOTIDINE INJ/PF 20 MG/2 ML SDV IV SCH ×2 (09:41→22:00)
[2020-02-25] MEDS: ZINC SULFATE 220 MG CAPSULE PO SCH (09:41)
[2020-02-25] MEDS: KETOCONAZOLE 2% SHAMPOO 120 ML BOTTLE TP SCH (09:42)
--- NOTE | 2020-02-25 11:41 | ST Inp Modified Barium Swallow ---
Medical Diagnosis - Medical Diagnoses Medical Diagnosis Description & ICD-10 Code(s): pneumonia - ICD-10 Tx Diagnosis Coding (1) Pneumonia ICD-10 Code(s): J18.9 - PNEUMONIA, UNSPECIFIED ORGANISM (2) Toxic encephalopathy ICD-10 Code(s): G92 - TOXIC ENCEPHALOPATHY ST Inpatient MBS - General Date: 02/25/20 - History -: Medical - Patient admitted 02/11/2020 for management of pneumonia and also has diagnoses essential hypertension and toxic encephalopathy per physician progress notes. Prior bedside evaluation on 02/15/20 recommended thin liquids and puree solids, as well as MBSS should coughing with PO persist. Patient subsequently was taking very little by mouth. Over the weekend, the patient reportedly demonstrated increase in coughing again with feeding. Patient then made NPO and Dr. Martins documented that a MBSS would be completed Tuesday (02/25/20), however, no order for study was placed. Nursing contacted Dr. Terrell this day, who advised nursing to place an order for MBSS. Medications: Medications Reviewed Allergies: No known allergies - Subjective Current Nutritional Means: NPO Current Symptoms: Poor intake, Coughing, Pneumonia Pain: Patient reports, 0/5 - Objective Assessment: Upright, Left Lateral - Food Trials Food Trials Used: Thin liquids, Honey-thickened liquids, Pureed The Patient: Required Assist - patient wearing mitts - Assessment Labial Function: Within Normal Limits Lingual Function: Within Normal Limits Mandibular Function: Within Normal Limits Dentition: Partial Velo-Pharyngeal Function: Unremarkable Laryngeal Function: Weak Cough - coughing noted prior to PO trials - Pharyngeal Stage Initiation of Pharyngeal Stage: Delayed - bolus in pyriform sinus prior to swallow initiation Decreased Laryngeal Elevation: Yes Reduced Velo-Pharyngeal Closure: no Reduced Pressure Generation: Yes Pre-Swallowing Pooling in Valleculae: Moderate Pre-Swallowing Pooling in Pyriforms: Moderate Reduced Thyro-Hyiod Approximation: Yes Reduced Epiglottic Excursion: No Multiple Swallows With: Ineffective Clearance Post Swallow Residuals in Valleculae: Moderate Post Swallow Residuals in Pyriforms: Significant - Impression/Summary Laryngeal Penetration: Yes - penetration occured with all textures on the swallow, as well as after the swallow from residuals from the pyriform sinus Tracheal Aspiration: yes - james aspiration seen with all textures, occured on the swallow with thin liquids, as well as after the swallow from residuals from the pyriform sinus with pudding and thickened liquids. Patient did demonstrate cough reaction with aspiration, however, not effective in clearing aspiration. Patient Presents With: Pharyngeal stage dysph., Profound Risk of Aspiration: Severe Risk of Nutritional Compromise: Severe - Recommendations NPO: yes Other Recommendations: Patient demonstrated aspiration with all textures this day. This was due to delay in swallow initiation, reduced airway closure on the swallow, and reduced pharyngeal constriction which resulted in signfiicant pyriform sinus residue. Aspiration occured on the swallow with liquids, and after the swallow with residuals from puree solids. No safe diet recommendation can be made at this time. Patient is also not a good candidate for dysphagia treatment due to mental status and difficulty following specific directions. - Time Total Time: 30 Total Timed Minutes: 30
--- NOTE | 2020-02-25 13:20 | RADIOLOGY REPORT (SQ) ---
EXAM DESCRIPTION: COOKIE SWALLOW IMAGES COMPLETED DATE/TIME: 02/25/2020 11:01 am REASON FOR STUDY: not able to swallow encephalopathy, aspiration pneumonia COMPARISON: None. TECHNIQUE: Videofluoroscopic swallowing examination was performed in conjunction with speech patholo gy. Videofluoroscopic imaging was obtained and reviewed and these are the findings: RADIATION DOSE: 2.1 minutes of fluoroscopy was used. 1 images saved to PACS. LIMITATIONS: None FINDINGS: The patient was brought into the fluoro room and placed upright on a modified barium swall ow chair. The patient was then given multiple consistencies mixed with barium to swallow under live fluoroscopic video guidance. According to the Speech Pathologist there was laryngeal penetration and aspiration of all consistencies as well as post swallow residual. IMPRESSION: LARYNGEAL PENETRATION AND ASPIRATION ABOVE. PLEASE SEE SPEECH PATHOLOGIST REPORT FOR OTHER FINDINGS AND RECOMMENDATIONS. COMMENT: Quality ID [id number]: Final reports for procedures using fluoroscopy that document radiation exp osure indices, or exposure time and number of fluorographic images (if radiation exposure indices are not available) TECHNICAL DOCUMENTATION: JOB ID: [id number] 2010 [employer]- All Rights Reserved Reading location - IP/workstation name: [email or web address]
[2020-02-25] MEDS: NORMAL SALINE 1000 ML 1,000 ML with POTASSIUM CHLORIDE 20 MEQ, MAGNESIUM SULFATE 8 MEQ,... IV SCH ×5 (17:09)
--- NOTE | 2020-02-25 17:47 | PDOC PROGRESS REPORT ---
Subjective Date:: 02/25/20 Subjective:: Patient remain confused and agitated with disruption of care. Interval episodes of aspiration and development of aspiration pneumonia. Indwelling Boudreaux catheter with clear urine persist. I had extensive discussion with daughter regarding swallowing evaluation findings and recommendations. Reason For Visit: TOXIC ENCEPHALOPATHY,COVID-19 PUI,PROBABLE PNEUMON Physical Exam Vital Signs: Temp Pulse Resp BP Pulse Ox 98.2 F 84 16 121/78 100 02/25/20 09:10 02/25/20 14:00 02/25/20 12:40 02/25/20 00:00 02/25/20 12:40 Intake & Output 02/24/20 02/25/20 02/26/20 06:59 06:59 06:59 Intake Total 3047 1123 1050 Output Total 335 750 Balance 2712 373 1050 Weight 59.2 kg 59.1 kg Physical Exam: General appearance: PRESENT: thin, confused Head exam: PRESENT: atraumatic, normocephalic Eye exam: PRESENT: conjunctiva pink. ABSENT: pallor, sclera icterus Mouth exam: PRESENT: fairly moist Respiratory exam: PRESENT: clear to auscultation emily, scattered crackles, decreased breath sounds - at lung bases Cardiovascular exam: PRESENT: RRR. ABSENT: diastolic murmur, rubs, systolic murmur GI/Abdominal exam: PRESENT: normal bowel sounds, soft. ABSENT: tenderness Genitourinary exam: PRESENT: indwelling catheter. Extremities exam: ABSENT: pedal edema Neurological exam: PRESENT: awake, confused, mittens in use with soft wrist re straints. Psychiatric exam: PRESENT: agitated Skin exam: PRESENT: dry, warm Results Laboratory Results: 02/25/20 05:19 02/25/20 05:19 02/25/20 02/25/20 05:19 05:19 WBC 12.5 H RBC 3.39 L Hgb 10.8 L Hct 31.3 L MCV 93 MCH 31.9 MCHC 34.4 RDW 13.0 Plt Count 230 Seg Neutrophils % 88.7 H Sodium 138.2 Potassium 4.0 Chloride 105 Carbon Dioxide 28 Anion Gap 5 BUN 10 Creatinine 0.55 Est GFR ( Amer) > 60 Glucose 119 H Calcium 7.8 L 02/11/20 02/11/20 14:20 14:20 Creatine Kinase 38 L Troponin I < 0.012 Impressions: Head CT 02/11/20 14:26 IMPRESSION: CHRONIC CHANGES OF ATROPHY AND MICROVASCULAR ISCHEMIA. NO ACUTE PROCESS. EVIDENCE OF ACUTE STROKE: NO. Chest X-Ray 02/23/20 00:00 IMPRESSION: Right lung pneumonia consistent with the clinical concern for aspiration. Modified Barium Swallow 02/25/20 09:47 IMPRESSION: LARYNGEAL PENETRATION AND ASPIRATION ABOVE. PLEASE SEE SPEECH PATHOLOGIST REPORT FOR OTHER FINDINGS AND RECOMMENDATIONS. Assessment & Plan - Diagnosis (1) Toxic encephalopathy Is this a current diagnosis for this admission?: Yes (2) Pneumonia Qualifiers: Pneumonia type: due to unspecified organism Laterality: left Lung location: lower lobe of lung Qualified Code(s): J18.9 - Pneumonia, unspecified organism Is this a current diagnosis for this admission?: Yes (3) COVID-19 virus test result unknown Is this a current diagnosis for this admission?: Yes (4) Hypertension Qualifiers: Hypertension type: unspecified Qualified Code(s): I10 - Essential (primary) hypertension Is this a current diagnosis for this admission?: Yes (5) Seborrhea capitis in adult Is this a current diagnosis for this admission?: Yes (6) Urinary retention Is this a current diagnosis for this admission?: Yes (7) Traumatic hematuria Is this a current diagnosis for this admission?: Yes - Time Time Spent with patient: 25-34 minutes Level of Care: IMCU Medications reviewed and adjusted accordingly: Yes Anticipated discharge: SNF, Hospice Anticipated DC Timeframe: within 72 hours - Inpatient Certification Based on my medical assessment, after consideration of the patient's comorbidities, presenting symptoms, or acuity I expect that the services needed warrant INPATIENT care.: Yes I certify that my determination is in accordance with my understanding of Medicare's requirements for reasonable and necessary INPATIENT services [42 CFR 412.3e].: Yes Medical Necessity: Significant Comorbidiites Make Outpatient Treatment Too Risky, Need Close Monitoring Due to Risk of Patient Decompensation, Need For IV Fluids, Need For Continuous Telemetry Monitoring, Need for IV Antibiotics, Risk of Complication if Not Cared For in Hospital, Risk of Diagnosis Which Will Require Inpatient Eval/Care/Monitoring Post Hospital Care: D/C Communication Consultant Documentation, D/C or Transfer Summary - Plan Summary Plan Summary: Continue IV Cefepime coverage. Start on IV Levofloxacin 500 mg daily. I discussed speech pathologist recommendations with daughter regarding NPO status and possible PEG tube placement. I strongly advised against PEG tube placement in this patient at end of life with pneumonia and dementia based on overall benefit versus complications from such intervention. We will continue IV antibiotic therapy with hope that he may show improvement in the next 72 hours otherwise look towards hospice placement. Daughter is in agreement with this care plan.
[2020-02-25] MEDS: LEVOFLOXACIN 500 MG/D5W RTU 500 MG/100 ML RTUPB IV SCH (18:29)
[2020-02-26] MEDS: DEXTROSE 5%-WATER 1000 ML 1,000 ML IV PRN ×2 (03:50→17:09)
[2020-02-26 06:42] LABS: ABSOLUTE BASOPHILS # (AUTO) 0.1 10^3/uL (0.0-0.2); ABSOLUTE EOSINOPHILS # (AUTO) 0.1 10^3/uL (0.0-0.6); ABSOLUTE LYMPHOCYTES (AUTO) 0.6 10^3/uL (0.5-4.7); ABSOLUTE MONOCYTES (AUTO) 0.5 10^3/uL (0.1-1.4); ABSOLUTE NEUT (AUTO) 8.5 10^3/uL (1.7-8.2); BASOPHILS % (AUTO) 0.7 % (0-2); EOSINOPHILS % (AUTO) 0.7 % (0-6); HEMATOCRIT 31.2 % (37.9-51.0); HEMOGLOBIN 10.8 g/dL (13.5-17.0); LYMPHOCYTES % (AUTO) 6.2 % (13-45); MEAN CORPUSCULAR HGB CONC 34.6 g/dL (32.0-36.0); MEAN CORPUSCULAR VOLUME 92 fl (80-97); MONOCYTES % (AUTO) 5.3 % (3-13); PLATELET COUNT 247 10^3/uL (150-450); RED BLOOD COUNT 3.37 10^6/uL (4.35-5.55); RED CELL DISTRIBUTION WIDTH 13.2 % (11.5-14.0); SEGMENTED NEUTROPHILS % (AUTO) 87.1 % (42-78); TOTAL CELLS COUNTED % (AUTO) 100 %; WHITE BLOOD COUNT 9.7 10^3/uL (4.0-10.5)
[2020-02-26 07:09] LABS: ALBUMIN 2.5 g/dL (3.5-5.0); ALKALINE PHOSPHATASE 75 U/L (38-126); ANION GAP 5 (5-19); ASPARTATE AMINO TRANSFERASE 47 U/L (17-59); BILIRUBIN,DIRECT 0.3 mg/dL (0.0-0.4); BILIRUBIN,TOTAL 0.8 mg/dL (0.2-1.3); BLOOD UREA NITROGEN 5 mg/dL (7-20); CALCIUM 7.6 mg/dL (8.4-10.2); CARBON DIOXIDE 26 mmol/L (22-30); CHLORIDE 106 mmol/L (98-107); GLUCOSE 109 mg/dL (75-110); POTASSIUM 3.3 mmol/L (3.6-5.0); TOTAL PROTEIN 5.3 g/dL (6.3-8.2)
[2020-02-26] MEDS: LOSARTAN POTASSIUM 50 MG TABLET PO SCH (09:36)
[2020-02-26] MEDS: CHOLECALCIFEROL (D3) 1,000 UNIT (25 MCG) TABLET PO SCH (09:36)
[2020-02-26] MEDS: ZINC SULFATE 220 MG CAPSULE PO SCH (09:37)
[2020-02-26] MEDS: FAMOTIDINE INJ/PF 20 MG/2 ML SDV IV SCH ×2 (09:54→21:54)
[2020-02-26] MEDS: KETOCONAZOLE 2% SHAMPOO 120 ML BOTTLE TP SCH (09:55)
[2020-02-26] MEDS: CEFEPIME 1 GM/D5W RTU 1 GM/50 ML RTUPB IV SCH ×2 (12:11→23:20)
[2020-02-26] MEDS: LEVOFLOXACIN 500 MG/D5W RTU 500 MG/100 ML RTUPB IV SCH (17:09)
[2020-02-26] MEDS: NORMAL SALINE 1000 ML 1,000 ML with POTASSIUM CHLORIDE 20 MEQ, MAGNESIUM SULFATE 8 MEQ,... IV SCH ×5 (17:09)
[2020-02-27] MEDS: DEXTROSE 5%-WATER 1000 ML 1,000 ML IV PRN (08:41)
--- NOTE | 2020-02-27 08:47 | PDOC PROGRESS REPORT ---
Subjective Date:: 02/26/20 Subjective:: Patient remain confused and disruptive to care. No reported fever or vomiting. Remain NPO due to high risk of recurrent aspiration. Remain on IV antibiotic therapy. Reason For Visit: TOXIC ENCEPHALOPATHY,COVID-19 PUI,PROBABLE PNEUMON Physical Exam Vital Signs: Temp Pulse Resp BP Pulse Ox 97.7 F 77 20 141/74 H 100 02/26/20 12:14 02/26/20 14:00 02/26/20 12:14 02/26/20 12:14 02/26/20 12:14 Intake & Output 02/25/20 02/26/20 02/27/20 06:59 06:59 06:59 Intake Total 1123 3223 982 Output Total 750 2150 1175 Balance 373 1073 -193 Weight 59.1 kg 59.2 kg Physical Exam: General appearance: PRESENT: thin, confused Head exam: PRESENT: atraumatic, normocephalic Eye exam: PRESENT: conjunctiva pink. ABSENT: pallor, sclera icterus Mouth exam: PRESENT: fairly moist Respiratory exam: PRESENT: clear to auscultation emily, scattered crackles, decreased breath sounds - at lung bases Cardiovascular exam: PRESENT: RRR. ABSENT: diastolic murmur, rubs, systolic murmur GI/Abdominal exam: PRESENT: normal bowel sounds, soft. ABSENT: tenderness Genitourinary exam: PRESENT: indwelling catheter. Extremities exam: ABSENT: pedal edema Neurological exam: PRESENT: awake, confused, mittens in use with soft wrist restraints. Psychiatric exam: PRESENT: agitated Skin exam: PRESENT: dry, warm Results Laboratory Results: 02/26/20 05:36 02/26/20 05:36 02/26/20 02/26/20 05:36 05:36 WBC 9.7 RBC 3.37 L Hgb 10.8 L Hct 31.2 L MCV 92 MCH 32.0 MCHC 34.6 RDW 13.2 Plt Count 247 Seg Neutrophils % 87.1 H Sodium 136.9 L Potassium 3.3 L Chloride 106 Carbon Dioxide 26 Anion Gap 5 BUN 5 L Creatinine 0.50 L Est GFR ( Amer) > 60 Glucose 109 Calcium 7.6 L Total Bilirubin 0.8 AST 47 Alkaline Phosphatase 75 Total Protein 5.3 L Albumin 2.5 L 02/11/20 02/11/20 14:20 14:20 Creatine Kinase 38 L Troponin I < 0.012 Impressions: Head CT 02/11/20 14:26 IMPRESSION: CHRONIC CHANGES OF ATROPHY AND MICROVASCULAR ISCHEMIA. NO ACUTE PROCESS. EVIDENCE OF ACUTE STROKE: NO. Chest X-Ray 02/23/20 00:00 IMPRESSION: Right lung pneumonia consistent with the clinical concern for aspiration. Modified Barium Swallow 02/25/20 09:47 IMPRESSION: LARYNGEAL PENETRATION AND ASPIRATION ABOVE. PLEASE SEE SPEECH PATHOLOGIST REPORT FOR OTHER FINDINGS AND RECOMMENDATIONS. Assessment & Plan - Diagnosis (1) Toxic encephalopathy Is this a current diagnosis for this admission?: Yes (2) Pneumonia Qualifiers: Pneumonia type: due to unspecified organism Laterality: left Lung location: lower lobe of lung Qualified Code(s): J18.9 - Pneumonia, unspecified organism Is this a current diagnosis for this admission?: Yes (3) COVID-19 virus test result unknown Is this a current diagnosis for this admission?: Yes (4) Hypertension Qualifiers: Hypertension type: unspecified Qualified Code(s): I10 - Essential (primary) hypertension Is this a current diagnosis for this admission?: Yes (5) Seborrhea capitis in adult Is this a current diagnosis for this admission?: Yes (6) Urinary retention Is this a current diagnosis for this admission?: Yes (7) Traumatic hematuria Is this a current diagnosis for this admission?: Yes - Time Time Spent with patient: 25-34 minutes Level of Care: IMCU Medications reviewed and adjusted accordingly: Yes Anticipated discharge: SNF, Hospice Anticipated DC Timeframe: within 72 hours - Inpatient Certification Based on my medical assessment, after consideration of the patient's com orbidities, presenting symptoms, or acuity I expect that the services needed warrant INPATIENT care.: Yes I certify that my determination is in accordance with my understanding of Medicare's requirements for reasonable and necessary INPATIENT services [42 CFR 412.3e].: Yes Medical Necessity: Significant Comorbidiites Make Outpatient Treatment Too Risky, Need Close Monitoring Due to Risk of Patient Decompensation, Need For IV Fluids, Need For Continuous Telemetry Monitoring, Need for IV Antibiotics, Risk of Complication if Not Cared For in Hospital, Risk of Diagnosis Which Will Require Inpatient Eval/Care/Monitoring Post Hospital Care: D/C [employer]uster Documentation - Plan Summary Plan Summary: Continue current medication management. Obtain CBC with diff, CMP, and chest X ray tomorrow.
[2020-02-27] MEDS: FAMOTIDINE INJ/PF 20 MG/2 ML SDV IV SCH ×2 (09:08→22:06)
[2020-02-27] MEDS: KETOCONAZOLE 2% SHAMPOO 120 ML BOTTLE TP SCH (09:08)
[2020-02-27] MEDS: CHOLECALCIFEROL (D3) 1,000 UNIT (25 MCG) TABLET PO SCH (09:09)
[2020-02-27] MEDS: ZINC SULFATE 220 MG CAPSULE PO SCH (09:09)
[2020-02-27] MEDS: LOSARTAN POTASSIUM 50 MG TABLET PO SCH (09:09)
[2020-02-27] MEDS: CEFEPIME 1 GM/D5W RTU 1 GM/50 ML RTUPB IV SCH ×2 (12:32→23:13)
[2020-02-27] MEDS: LEVOFLOXACIN 500 MG/D5W RTU 500 MG/100 ML RTUPB IV SCH (17:05)
--- NOTE | 2020-02-27 17:36 | PDOC PROGRESS REPORT ---
Subjective Date:: 02/27/20 Subjective:: Patient remain confused but less disruptive to care. No reported fever or vomiting. Remain on NPO status due to high risk of recurrent aspiration. Reason For Visit: TOXIC ENCEPHALOPATHY,COVID-19 PUI,PROBABLE PNEUMON Physical Exam Vital Signs: Temp Pulse Resp BP Pulse Ox 98.2 F 90 20 182/65 H 100 02/27/20 15:42 02/27/20 15:42 02/27/20 15:42 02/27/20 15:42 02/27/20 15:42 Intake & Output 02/26/20 02/27/20 02/28/20 06:59 06:59 06:59 Intake Total 3223 2155 1000 Output Total 2150 3550 375 Balance 1073 -1395 625 Weight 59.2 kg 58.2 kg Physical Exam: General appearance: PRESENT: thin, confused Head exam: PRESENT: atraumatic, normocephalic Eye exam: PRESENT: conjunctiva pink. ABSENT: pallor, sclera icterus Mouth exam: PRESENT: fairly moist Respiratory exam: PRESENT: clear to auscultation emily, scattered crackles, d ecreased breath sounds - at lung bases Cardiovascular exam: PRESENT: RRR. ABSENT: diastolic murmur, rubs, systolic murmur GI/Abdominal exam: PRESENT: normal bowel sounds, soft. ABSENT: tenderness Genitourinary exam: PRESENT: indwelling catheter. Extremities exam: ABSENT: pedal edema Neurological exam: PRESENT: awake, confused Psychiatric exam: PRESENT: agitated Skin exam: PRESENT: dry, warm Results Laboratory Results: 02/26/20 05:36 02/26/20 05:36 02/11/20 02/11/20 14:20 14:20 Creatine Kinase 38 L Troponin I < 0.012 Impressions: Head CT 02/11/20 14:26 IMPRESSION: CHRONIC CHANGES OF ATROPHY AND MICROVASCULAR ISCHEMIA. NO ACUTE PROCESS. EVIDENCE OF ACUTE STROKE: NO. Chest X-Ray 02/23/20 00:00 IMPRESSION: Right lung pneumonia consistent with the clinical concern for aspiration. Modified Barium Swallow 02/25/20 09:47 IMPRESSION: LARYNGEAL PENETRATION AND ASPIRATION ABOVE. PLEASE SEE SPEECH PATHOLOGIST REPORT FOR OTHER FINDINGS AND RECOMMENDATIONS. Assessment & Plan - Diagnosis (1) Toxic encephalopathy Is this a current diagnosis for this admission?: Yes (2) Pneumonia Qualifiers: Pneumonia type: due to unspecified organism Laterality: left Lung location: lower lobe of lung Qualified Code(s): J18.9 - Pneumonia, unspecified organism Is this a current diagnosis for this admission?: Yes (3) COVID-19 virus test result unknown Is this a current diagnosis for this admission?: Yes (4) Hypertension Qualifiers: Hypertension type: unspecified Qualified Code(s): I10 - Essential (primary) hypertension Is this a current diagnosis for this admission?: Yes (5) Seborrhea capitis in adult Is this a current diagnosis for this admission?: Yes (6) Urinary retention Is this a current diagnosis for this admission?: Yes (7) Traumatic hematuria Is this a current diagnosis for this admission?: Yes - Time Time Spent with patient: 25-34 minutes Level of Care: IMCU Medications reviewed and adjusted accordingly: Yes Anticipated discharge: SNF, Hospice Anticipated DC Timeframe: within 72 hours - Inpatient Certification Based on my medical assessment, after consideration of the patient's comorbidities, presenting symptoms, or acuity I expect that the services needed warrant INPATIENT care.: Yes I certify that my determination is in accordance with my understanding of Medicare's requirements for reasonable and necessary INPATIENT services [42 CFR 412.3e].: Yes Medical Necessity: Significant Comorbidiites Make Outpatient Treatment Too Risky, Need Close Monitoring Due to Risk of Patient Decompensation, Need For IV Fluids, Need For Continuous Telemetry Monitoring, Need for IV Antibiotics, Risk of Complication if Not Cared For in Hospital, Risk of Diagnosis Which Will Require Inpatient Eval/Care/Monitoring Post Hospital Care: D/C Emergency Medical Service Manager Documentation, D/C or Transfer Summary - Plan Summary Plan Summary: Continue current medication and supportive care management. Obtain CBC with diff, CMP, and chest X ray in am. Overall prognosis remain poor. I will continue discussion with family regarding expectation and recommended hospice placement
[2020-02-27] MEDS: NORMAL SALINE 1000 ML 1,000 ML with POTASSIUM CHLORIDE 20 MEQ, MAGNESIUM SULFATE 8 MEQ,... IV SCH ×5 (18:12)
[2020-02-28 06:13] LABS: ABSOLUTE BASOPHILS # (AUTO) 0.1 10^3/uL (0.0-0.2); ABSOLUTE EOSINOPHILS # (AUTO) 0.1 10^3/uL (0.0-0.6); ABSOLUTE LYMPHOCYTES (AUTO) 0.9 10^3/uL (0.5-4.7); ABSOLUTE MONOCYTES (AUTO) 0.5 10^3/uL (0.1-1.4); ABSOLUTE NEUT (AUTO) 5.6 10^3/uL (1.7-8.2); BASOPHILS % (AUTO) 0.8 % (0-2); EOSINOPHILS % (AUTO) 0.9 % (0-6); HEMATOCRIT 35.5 % (37.9-51.0); HEMOGLOBIN 11.8 g/dL (13.5-17.0); LYMPHOCYTES % (AUTO) 11.9 % (13-45); MEAN CORPUSCULAR HEMOGLOBIN 30.5 pg (27.0-33.4); MEAN CORPUSCULAR HGB CONC 33.2 g/dL (32.0-36.0); MEAN CORPUSCULAR VOLUME 92 fl (80-97); MONOCYTES % (AUTO) 7.5 % (3-13); PLATELET COUNT 330 10^3/uL (150-450); RED BLOOD COUNT 3.86 10^6/uL (4.35-5.55); RED CELL DISTRIBUTION WIDTH 13.2 % (11.5-14.0); SEGMENTED NEUTROPHILS % (AUTO) 78.9 % (42-78); TOTAL CELLS COUNTED % (AUTO) 100 %; WHITE BLOOD COUNT 7.2 10^3/uL (4.0-10.5)
[2020-02-28 06:29] LABS: ALBUMIN 2.6 g/dL (3.5-5.0); ALKALINE PHOSPHATASE 87 U/L (38-126); ANION GAP 9 (5-19); ASPARTATE AMINO TRANSFERASE 44 U/L (17-59); BILIRUBIN,DIRECT 0.2 mg/dL (0.0-0.4); BILIRUBIN,TOTAL 0.7 mg/dL (0.2-1.3); BLOOD UREA NITROGEN 4 mg/dL (7-20); CALCIUM 8.4 mg/dL (8.4-10.2); CARBON DIOXIDE 25 mmol/L (22-30); CHLORIDE 105 mmol/L (98-107); GLUCOSE 88 mg/dL (75-110); TOTAL PROTEIN 5.5 g/dL (6.3-8.2)
[2020-02-28] MEDS: FAMOTIDINE INJ/PF 20 MG/2 ML SDV IV SCH ×2 (10:44→21:30)
[2020-02-28] MEDS: LOSARTAN POTASSIUM 50 MG TABLET PO SCH (10:47)
[2020-02-28] MEDS: ZINC SULFATE 220 MG CAPSULE PO SCH (10:47)
[2020-02-28] MEDS: CHOLECALCIFEROL (D3) 1,000 UNIT (25 MCG) TABLET PO SCH (10:48)
[2020-02-28] MEDS: KETOCONAZOLE 2% SHAMPOO 120 ML BOTTLE TP SCH (10:48)
--- NOTE | 2020-02-28 11:00 | RADIOLOGY REPORT (SQ) ---
EXAM DESCRIPTION: CHEST SINGLE VIEW IMAGES COMPLETED DATE/TIME: 02/28/2020 8:30 am REASON FOR STUDY: Aspiration pneumonia COMPARISON: 02/23/2020 NUMBER OF VIEWS: One view. TECHNIQUE: Single frontal radiographic image of the chest acquired. LIMITATIONS: None. FINDINGS: LUNGS AND PLEURA: Right lower lobe airspace disease not significantly changed. Chronic el evation left diaphragm. MEDIASTINUM AND HEART: Stable heart size and mediastinal structures. BONY STRUCTURES: No acute findings. HARDWARE: None. OTHER: No other significant finding. IMPRESSION: Right lower lobe pneumonia. No significant change. TECHNICAL DOCUMENTATION: JOB ID: [id number] Reading location - IP/workstation name: [email or web address]
[2020-02-28] MEDS: CEFEPIME 1 GM/D5W RTU 1 GM/50 ML RTUPB IV SCH (13:47)
[2020-02-28] MEDS: LEVOFLOXACIN 500 MG/D5W RTU 500 MG/100 ML RTUPB IV SCH (17:12)
[2020-02-28] MEDS: NORMAL SALINE 1000 ML 1,000 ML with POTASSIUM CHLORIDE 20 MEQ, MAGNESIUM SULFATE 8 MEQ,... IV SCH ×5 (17:14)
[2020-02-28] MEDS: DEXTROSE 5%-WATER 1000 ML 1,000 ML IV PRN (17:15)
--- NOTE | 2020-02-28 19:12 | PDOC PROGRESS REPORT ---
Subjective Date:: 02/28/20 Subjective:: Patient remain confused but less disruptive to care. No reported fever or vomiting. Remain on NPO status due to high risk of recurrent aspiration. Attempt at feeding earlier today resulted in post swallowing cough spasm. Reason For Visit: TOXIC ENCEPHALOPATHY,COVID-19 PUI,PROBABLE PNEUMON Physical Exam Vital Signs: Temp Pulse Resp BP Pulse Ox 98.5 F 79 21 H 139/83 H 100 02/28/20 11:57 02/28/20 14:00 02/28/20 11:57 02/28/20 11:57 02/28/20 11:57 Intake & Output 02/27/20 02/28/20 02/29/20 06:59 06:59 06:59 Intake Total 2155 2888 150 Output Total 3550 2550 Balance -1395 338 150 Weight 58.2 kg 57.9 kg Physical Exam: General appearance: PRESENT: thin, confused Head exam: PRESENT: atraumatic, normocephalic Eye exam: PRESENT: conjunctiva pink. ABSENT: pallor, sclera icterus Mouth exam: PRESENT: fairly moist Respiratory exam: PRESENT: clear to auscultation emily, scattered crackles, decreased breath sounds - at lung bases Cardiovascular exam: PRESENT: RRR. ABSENT: diastolic murmur, rubs, systolic murmur GI/Abdominal exam: PRESENT: normal bowel sounds, soft. ABSENT: tenderness Genitourinary exam: PRESENT: indwelling catheter. Extremities exam: ABSENT: pedal edema Neurological exam: PRESENT: awake, confused Psychiatric exam: PRESENT: agitated Skin exam: PRESENT: dry, warm Results Laboratory Results: 02/28/20 05:14 02/28/20 05:14 02/28/20 02/28/20 05:14 05:14 WBC 7.2 RBC 3.86 L Hgb 11.8 L Hct 35.5 L MCV 92 MCH 30.5 MCHC 33.2 RDW 13.2 Plt Count 330 Seg Neutrophils % 78.9 H Sodium 139.2 Potassium 4.0 Chloride 105 Carbon Dioxide 25 Anion Gap 9 BUN 4 L Creatinine 0.58 Est GFR ( Amer) > 60 Glucose 88 Calcium 8.4 Total Bilirubin 0.7 AST 44 Alkaline Phosphatase 87 Total Protein 5.5 L Albumin 2.6 L 02/11/20 02/11/20 14:20 14:20 Creatine Kinase 38 L Troponin I < 0.012 Impressions: Head CT 02/11/20 14:26 IMPRESSION: CHRONIC CHANGES OF ATROPHY AND MICROVASCULAR ISCHEMIA. NO ACUTE PROCESS. EVIDENCE OF ACUTE STROKE: NO. Modified Barium Swallow 02/25/20 09:47 IMPRESSION: LARYNGEAL PENETRATION AND ASPIRATION ABOVE. PLEASE SEE SPEECH PATHOLOGIST REPORT FOR OTHER FINDINGS AND RECOMMENDATIONS. Chest X-Ray 02/28/20 06:00 IMPRESSION: Right lower lobe pneumonia. No significant change. Assessment & Plan - Diagnosis (1) Toxic encephalopathy Is this a current diagnosis for this admission?: Yes (2) Pneumonia Qualifiers: Pneumonia type: due to unspecified organism Laterality: left Lung location: lower lobe of lung Qualified Code(s): J18.9 - Pneumonia, unspecified organism Is this a current diagnosis for this admission?: Yes (3) COVID-19 virus test result unknown Is this a current diagnosis for this admission?: Yes (4) Hypertension Qualifiers: Hypertension type: unspecified Qualified Code(s): I10 - Essential (primary) hypertension Is this a current diagnosis for this admission?: Yes (5) Seborrhea capitis in adult Is this a current diagnosis for this admission?: Yes (6) Urinary retention Is this a current diagnosis for this admission?: Yes (7) Traumatic hematuria Is this a current diagnosis for this admission?: Yes - Time Time Spent with patient: 25-34 minutes Level of Care: IMCU Medications reviewed and adjusted accordingly: Yes Anticipated discharge: SNF, Hospice Anticipated DC Timeframe: within 72 hours - Inpatient Certification Based on my medical assessment, after consideration of the patient's comorbidities, presenting symptoms, or acuity I expect that the services needed warrant INPATIENT care.: Yes I certify that my determination is in accordance with my understanding of Medicare's requirements for reasonable and necessary INPATIENT services [42 CFR 412.3e].: Yes Medical Necessity: Significant Comorbidiites Make Outpatient Treatment Too Risky, Need Close Monitoring Due to Risk of Patient Decompensation, Need For IV Fluids, Need For Continuous Telemetry Monitoring, Need for IV Antibiotics, Risk of Complication if Not Cared For in Hospital, Risk of Diagnosis Which Will Require Inpatient Eval/Care/Monitoring Post Hospital Care: D/C Head Bellhop Captain Documentation, D/C or Transfer Summary - Plan Summary Plan Summary: Continue IV antibiotic coverage. Chest X ray right basal lobar airspace disease process without any significant change. His leukocytosis is improving. Nutritional status remain poor with high risk of aspiration. I will continue discussion with family to seriously consider hospice placement.
[2020-02-29] MEDS: CEFEPIME 1 GM/D5W RTU 1 GM/50 ML RTUPB IV SCH ×2 (00:54→11:43)
[2020-02-29] MEDS: DEXTROSE 5%-WATER 1000 ML 1,000 ML IV PRN (05:34)
[2020-02-29] MEDS: FAMOTIDINE INJ/PF 20 MG/2 ML SDV IV SCH ×2 (11:42→21:14)
[2020-02-29] MEDS: LOSARTAN POTASSIUM 50 MG TABLET PO SCH (11:42)
[2020-02-29] MEDS: CHOLECALCIFEROL (D3) 1,000 UNIT (25 MCG) TABLET PO SCH (11:43)
[2020-02-29] MEDS: KETOCONAZOLE 2% SHAMPOO 120 ML BOTTLE TP SCH (11:43)
[2020-02-29] MEDS: ZINC SULFATE 220 MG CAPSULE PO SCH (11:43)
--- NOTE | 2020-02-29 16:24 | PDOC PROGRESS REPORT ---
Subjective Date:: 02/29/20 Subjective:: Patient is more appropriate in simple responses today during my visit. No reported fever or vomiting. Remain on NPO status due to high risk of recurrent aspiration. Reason For Visit: TOXIC ENCEPHALOPATHY,COVID-19 PUI,PROBABLE PNEUMON Physical Exam Vital Signs: Temp Pulse Resp BP Pulse Ox 98.2 F 73 21 H 133/59 H 100 02/29/20 11:45 02/29/20 14:00 02/29/20 11:45 02/29/20 11:45 02/29/20 07:29 Intake & Output 02/28/20 02/29/20 03/01/20 06:59 06:59 06:59 Intake Total 2888 2085 Output Total 2550 2400 Balance 338 -315 Weight 57.9 kg 57.6 kg Results Laboratory Results: 02/28/20 05:14 02/28/20 05:14 02/11/20 02/11/20 14:20 14:20 Creatine Kinase 38 L Troponin I < 0.012 Impressions: Head CT 02/11/20 14:26 IMPRESSION: CHRONIC CHANGES OF ATROPHY AND MICROVASCULAR ISCHEMIA. NO ACUTE PROCESS. EVIDENCE OF ACUTE STROKE: NO. Modified Barium Swallow 02/25/20 09:47 IMPRESSION: LARYNGEAL PENETRATION AND ASPIRATION ABOVE. PLEASE SEE SPEECH PATHOLOGIST REPORT FOR OTHER FINDINGS AND RECOMMENDATIONS. Chest X-Ray 02/28/20 06:00 IMPRESSION: Right lower lobe pneumonia. No significant change. Assessment & Plan - Diagnosis (1) Toxic encephalopathy Is this a current diagnosis for this admission?: Yes (2) Pneumonia Qualifiers: Pneumonia type: due to unspecified organism Laterality: left Lung location: lower lobe of lung Qualified Code(s): J18.9 - Pneumonia, unspecified organism Is this a current diagnosis for this admission?: Yes (3) COVID-19 virus test result unknown Is this a current diagnosis for this admission?: Yes (4) Hypertension Qualifiers: Hypertension type: unspecified Qualified Code(s): I10 - Essential (primary) hypertension Is this a current diagnosis for this admission?: Yes (5) Seborrhea capitis in adult Is this a current diagnosis for this admission?: Yes (6) Urinary retention Is this a current diagnosis for this admission?: Yes (7) Traumatic hematuria Is this a current diagnosis for this admission?: Yes - Time Time Spent with patient: 25-34 minutes Level of Care: IMCU Medications reviewed and adjusted accordingly: Yes Anticipated discharge: SNF, Hospice Anticipated DC Timeframe: within 72 hours - Inpatient Certification Based on my medical assessment, after consideration of the patient's comor bidities, presenting symptoms, or acuity I expect that the services needed warrant INPATIENT care.: Yes I certify that my determination is in accordance with my understanding of Medicare's requirements for reasonable and necessary INPATIENT services [42 CFR 412.3e].: Yes Medical Necessity: Significant Comorbidiites Make Outpatient Treatment Too Risky, Need Close Monitoring Due to Risk of Patient Decompensation, Need For IV Fluids, Need For Continuous Telemetry Monitoring, Need for IV Antibiotics, Risk of Complication if Not Cared For in Hospital, Risk of Diagnosis Which Will Require Inpatient Eval/Care/Monitoring Post Hospital Care: D/C Torpedo Specialist Documentation, D/C or Transfer Summary - Plan Summary Plan Summary: Continue current medication management. Family did not actualized wish for peg tube placement during my discussion with daughter and I did not agree with such intervention in this patient with dementia.
[2020-02-29] MEDS: LEVOFLOXACIN 500 MG/D5W RTU 500 MG/100 ML RTUPB IV SCH (17:34)
[2020-02-29] MEDS: NORMAL SALINE 1000 ML 1,000 ML with POTASSIUM CHLORIDE 20 MEQ, MAGNESIUM SULFATE 8 MEQ,... IV SCH ×5 (18:49)
[2020-03-01] MEDS: CEFEPIME 1 GM/D5W RTU 1 GM/50 ML RTUPB IV SCH ×3 (00:31→23:16)
[2020-03-01] MEDS: DEXTROSE 5%-WATER 1000 ML 1,000 ML IV PRN ×2 (05:06→20:40)
[2020-03-01] MEDS: FAMOTIDINE INJ/PF 20 MG/2 ML SDV IV SCH ×2 (10:02→23:17)
[2020-03-01] MEDS: KETOCONAZOLE 2% SHAMPOO 120 ML BOTTLE TP SCH (10:02)
[2020-03-01] MEDS: CHOLECALCIFEROL (D3) 1,000 UNIT (25 MCG) TABLET PO SCH (10:03)
[2020-03-01] MEDS: LOSARTAN POTASSIUM 50 MG TABLET PO SCH (10:03)
[2020-03-01] MEDS: ZINC SULFATE 220 MG CAPSULE PO SCH (10:03)
--- NOTE | 2020-03-01 14:10 | PDOC PROGRESS REPORT ---
Subjective Date:: 03/01/20 Subjective:: Patient very confused, still n.p.o., DNR status Reason For Visit: TOXIC ENCEPHALOPATHY,COVID-19 PUI,PROBABLE PNEUMON Physical Exam Vital Signs: Temp Pulse Resp BP Pulse Ox 97.2 F 74 16 131/71 H 100 03/01/20 07:21 03/01/20 11:08 03/01/20 11:08 03/01/20 11:08 03/01/20 11:08 Intake & Output 02/29/20 03/01/20 03/02/20 06:59 06:59 06:59 Intake Total 2085 2163 Output Total 2400 3225 900 Balance -315 -3172 -900 Weight 57.6 kg 55.9 kg General appearance: PRESENT: no acute distress Eye exam: PRESENT: PERRLA Respiratory exam: PRESENT: clear to auscultation emily Cardiovascular exam: PRESENT: +S1, +S2 Results Laboratory Results: 02/28/20 05:14 02/28/20 05:14 02/11/20 02/11/20 14:20 14:20 Creatine Kinase 38 L Troponin I < 0.012 Impressions: Head CT 02/11/20 14:26 IMPRESSION: CHRONIC CHANGES OF ATROPHY AND MICROVASCULAR ISCHEMIA. NO ACUTE PROCESS. EVIDENCE OF ACUTE STROKE: NO. Modified Barium Swallow 02/25/20 09:47 IMPRESSION: LARYNGEAL PENETRATION AND ASPIRATION ABOVE. PLEASE SEE SPEECH PATHOLOGIST REPORT FOR OTHER FINDINGS AND RECOMMENDATIONS. Chest X-Ray 02/28/20 06:00 IMPRESSION: Right lower lobe pneumonia. No significant change. Assessment & Plan - Diagnosis (1) Pneumonia, unspecified organism Is this a current diagnosis for this admission?: Yes Plan: Continue IV antibiotic,CXR done was negative (2) Essential (primary) hypertension Is this a current diagnosis for this admission?: Yes (3) Toxic encephalopathy Is this a current diagnosis for this admission?: Yes (4) Traumatic injury of abdomen with gross hematuria Is this a current diagnosis for this admission?: Yes (5) Hypernatremia Is this a current diagnosis for this admission?: Yes - Time Time Spent with patient: Less than 15 minutes Level of Care: IMCU Medications reviewed and adjusted accordingly: Yes Anticipated discharge: Home Anticipated DC Timeframe: within 72 hours
[2020-03-01] MEDS: LEVOFLOXACIN 500 MG/D5W RTU 500 MG/100 ML RTUPB IV SCH (17:15)
[2020-03-01] MEDS: NORMAL SALINE 1000 ML 1,000 ML with POTASSIUM CHLORIDE 20 MEQ, MAGNESIUM SULFATE 8 MEQ,... IV SCH ×5 (19:15)
[2020-03-02] MEDS: LOSARTAN POTASSIUM 50 MG TABLET PO SCH (09:38)
[2020-03-02] MEDS: CHOLECALCIFEROL (D3) 1,000 UNIT (25 MCG) TABLET PO SCH (09:38)
[2020-03-02] MEDS: ZINC SULFATE 220 MG CAPSULE PO SCH (09:38)
[2020-03-02] MEDS: FAMOTIDINE INJ/PF 20 MG/2 ML SDV IV SCH ×2 (11:20→21:46)
[2020-03-02] MEDS: KETOCONAZOLE 2% SHAMPOO 120 ML BOTTLE TP SCH (11:20)
[2020-03-02] MEDS: DEXTROSE 5%-WATER 1000 ML 1,000 ML IV PRN (11:21)
[2020-03-02] MEDS: CEFEPIME 1 GM/D5W RTU 1 GM/50 ML RTUPB IV SCH (11:23)
--- NOTE | 2020-03-02 15:16 | PDOC PROGRESS REPORT ---
Subjective Date:: 03/02/20 Subjective:: Patient's conditions remain poor, he is n.p.o., a DNR status with advanced demen tia no meaningful communication Reason For Visit: TOXIC ENCEPHALOPATHY,COVID-19 PUI,PROBABLE PNEUMON Physical Exam Vital Signs: Temp Pulse Resp BP Pulse Ox 98.0 F 82 28 H 125/88 H 98 03/02/20 10:48 03/02/20 14:00 03/02/20 10:48 03/02/20 10:48 03/02/20 10:48 Intake & Output 03/01/20 03/02/20 03/03/20 06:59 06:59 06:59 Intake Total 2163 1050 2223 Output Total 3225 2450 Balance -1062 -1400 2223 Weight 55.9 kg 55.2 kg General appearance: PRESENT: no acute distress Eye exam: PRESENT: PERRLA Respiratory exam: PRESENT: clear to auscultation emily Cardiovascular exam: PRESENT: +S1, +S2 Neurological exam: PRESENT: alert Results Laboratory Results: 02/28/20 05:14 02/28/20 05:14 02/11/20 02/11/20 14:20 14:20 Creatine Kinase 38 L Troponin I < 0.012 Impressions: Head CT 02/11/20 14:26 IMPRESSION: CHRONIC CHANGES OF ATROPHY AND MICROVASCULAR ISCHEMIA. NO ACUTE PROCESS. EVIDENCE OF ACUTE STROKE: NO. Modified Barium Swallow 02/25/20 09:47 IMPRESSION: LARYNGEAL PENETRATION AND ASPIRATION ABOVE. PLEASE SEE SPEECH PATHOLOGIST REPORT FOR OTHER FINDINGS AND RECOMMENDATIONS. Chest X-Ray 02/28/20 06:00 IMPRESSION: Right lower lobe pneumonia. No significant change. Assessment & Plan - Diagnosis (1) Pneumonia, unspecified organism Is this a current diagnosis for this admission?: Yes Plan: (2) Essential (primary) hypertension Is this a current diagnosis for this admission?: Yes (3) Toxic encephalopathy Is this a current diagnosis for this admission?: Yes (4) Traumatic injury of abdomen with gross hematuria Is this a current diagnosis for this admission?: Yes (5) Hypernatremia Is this a current diagnosis for this admission?: Yes - Time Time Spent with patient: Less than 15 minutes Level of Care: IMCU Medications reviewed and adjusted accordingly: No Anticipated discharge: Home Anticipated DC Timeframe: within 72 hours
[2020-03-02] MEDS: LEVOFLOXACIN 500 MG/D5W RTU 500 MG/100 ML RTUPB IV SCH (17:20)
[2020-03-02] MEDS: NORMAL SALINE 1000 ML 1,000 ML with POTASSIUM CHLORIDE 20 MEQ, MAGNESIUM SULFATE 8 MEQ,... IV SCH ×5 (18:31)
[2020-03-03] MEDS: CEFEPIME 1 GM/D5W RTU 1 GM/50 ML RTUPB IV SCH ×3 (01:00→23:37)
[2020-03-03] MEDS: DEXTROSE 5%-WATER 1000 ML 1,000 ML IV PRN ×2 (03:06→21:50)
[2020-03-03] MEDS: LOSARTAN POTASSIUM 50 MG TABLET PO SCH (09:22)
[2020-03-03] MEDS: CHOLECALCIFEROL (D3) 1,000 UNIT (25 MCG) TABLET PO SCH (09:22)
[2020-03-03] MEDS: FAMOTIDINE INJ/PF 20 MG/2 ML SDV IV SCH ×2 (09:23→21:50)
[2020-03-03] MEDS: ZINC SULFATE 220 MG CAPSULE PO SCH (09:23)
[2020-03-03] MEDS: KETOCONAZOLE 2% SHAMPOO 120 ML BOTTLE TP SCH (09:23)
[2020-03-03 10:53] LABS: ABSOLUTE EOSINOPHILS # (AUTO) 0.1 10^3/uL (0.0-0.6); ABSOLUTE LYMPHOCYTES (AUTO) 0.9 10^3/uL (0.5-4.7); ABSOLUTE MONOCYTES (AUTO) 0.5 10^3/uL (0.1-1.4); ABSOLUTE NEUT (AUTO) 2.9 10^3/uL (1.7-8.2); BASOPHILS % (AUTO) 0.7 % (0-2); HEMATOCRIT 36.3 % (37.9-51.0); HEMOGLOBIN 12.3 g/dL (13.5-17.0); LYMPHOCYTES % (AUTO) 20.2 % (13-45); MEAN CORPUSCULAR HGB CONC 33.8 g/dL (32.0-36.0); MEAN CORPUSCULAR VOLUME 92 fl (80-97); MONOCYTES % (AUTO) 10.6 % (3-13); PLATELET COUNT 363 10^3/uL (150-450); RED BLOOD COUNT 3.96 10^6/uL (4.35-5.55); RED CELL DISTRIBUTION WIDTH 13.2 % (11.5-14.0); SEGMENTED NEUTROPHILS % (AUTO) 66.5 % (42-78); TOTAL CELLS COUNTED % (AUTO) 100 %; WHITE BLOOD COUNT 4.4 10^3/uL (4.0-10.5)
[2020-03-03 11:17] LABS: ALBUMIN 2.8 g/dL (3.5-5.0); ALKALINE PHOSPHATASE 78 U/L (38-126); ANION GAP 6 (5-19); ASPARTATE AMINO TRANSFERASE 34 U/L (17-59); BILIRUBIN,DIRECT 0.2 mg/dL (0.0-0.4); BILIRUBIN,TOTAL 0.7 mg/dL (0.2-1.3); BLOOD UREA NITROGEN 4 mg/dL (7-20); CALCIUM 8.8 mg/dL (8.4-10.2); CARBON DIOXIDE 29 mmol/L (22-30); CHLORIDE 103 mmol/L (98-107); GLUCOSE 105 mg/dL (75-110); POTASSIUM 4.5 mmol/L (3.6-5.0); TOTAL PROTEIN 5.8 g/dL (6.3-8.2)
[2020-03-03] MEDS: NORMAL SALINE 1000 ML 1,000 ML with POTASSIUM CHLORIDE 20 MEQ, MAGNESIUM SULFATE 8 MEQ,... IV SCH ×5 (17:05)
[2020-03-03] MEDS: LEVOFLOXACIN 500 MG/D5W RTU 500 MG/100 ML RTUPB IV SCH (17:05)
--- NOTE | 2020-03-03 18:35 | PDOC PROGRESS REPORT ---
Subjective Date:: 03/03/20 Subjective:: No reported chest pain or observed difficulty with breathing. No reported fever or vomiting. Remain on NPO status due to high risk of recurrent aspiration. Remain on IV antibiotic therapy and soft wrist restraints. Reason For Visit: TOXIC ENCEPHALOPATHY,COVID-19 PUI,PROBABLE PNEUMON Physical Exam Vital Signs: Temp Pulse Resp BP Pulse Ox 97.7 F 68 16 121/73 100 03/03/20 07:21 03/03/20 07:00 03/03/20 03:27 03/03/20 03:27 03/03/20 03:27 Intake & Output 03/02/20 03/03/20 03/04/20 06:59 06:59 06:59 Intake Total 1050 4296 Output Total 2450 3200 Balance -1400 1096 Weight 55.2 kg 55.3 kg Physical Exam: General appearance: PRESENT: thin, confused Head exam: PRESENT: atraumatic, normocephalic Eye exam: PRESENT: conjunctiva pink. ABSENT: pallor, sclera icterus Mouth exam: PRESENT: fairly moist Respiratory exam: PRESENT: clear to auscultation emily, scattered crackles, decreased breath sounds - at lung bases Cardiovascular exam: PRESENT: RRR. ABSENT: diastolic murmur, rubs, systolic murmur GI/Abdominal exam: PRESENT: normal bowel sounds, soft. ABSENT: tenderness Genitourinary exam: PRESENT: indwelling catheter. Extremities exam: ABSENT: pedal edema Neurological exam: PRESENT: awake, confused Psychiatric exam: PRESENT: awake, not agitated presently. Skin exam: PRESENT: dry, warm Results Laboratory Results: 02/28/20 05:14 02/28/20 05:14 02/11/20 02/11/20 14:20 14:20 Creatine Kinase 38 L Troponin I < 0.012 Impressions: Head CT 02/11/20 14:26 IMPRESSION: CHRONIC CHANGES OF ATROPHY AND MICROVASCULAR ISCHEMIA. NO ACUTE P ROCESS. EVIDENCE OF ACUTE STROKE: NO. Modified Barium Swallow 02/25/20 09:47 IMPRESSION: LARYNGEAL PENETRATION AND ASPIRATION ABOVE. PLEASE SEE SPEECH PATHOLOGIST REPORT FOR OTHER FINDINGS AND RECOMMENDATIONS. Chest X-Ray 02/28/20 06:00 IMPRESSION: Right lower lobe pneumonia. No significant change. Assessment & Plan - Diagnosis (1) Toxic encephalopathy Is this a current diagnosis for this admission?: Yes (2) Pneumonia Qualifiers: Pneumonia type: due to unspecified organism Laterality: left Lung location: lower lobe of lung Qualified Code(s): J18.9 - Pneumonia, unspecified organism Is this a current diagnosis for this admission?: Yes (3) COVID-19 virus test result unknown Is this a current diagnosis for this admission?: Yes (4) Hypertension Qualifiers: Hypertension type: unspecified Qualified Code(s): I10 - Essential (primary) hypertension Is this a current diagnosis for this admission?: Yes (5) Seborrhea capitis in adult Is this a current diagnosis for this admission?: Yes (6) Urinary retention Is this a current diagnosis for this admission?: Yes (7) Traumatic hematuria Is this a current diagnosis for this admission?: Yes - Time Time Spent with patient: 25-34 minutes Level of Care: IMCU Medications reviewed and adjusted accordingly: Yes Anticipated discharge: SNF, Hospice Anticipated DC Timeframe: within 72 hours - Inpatient Certification Based on my medical assessment, after consideration of the patient's comorbidities, presenting symptoms, or acuity I expect that the services needed warrant INPATIENT care.: Yes I certify that my determination is in accordance with my understanding of Medicare's requirements for reasonable and necessary INPATIENT services [42 CFR 412.3e].: Yes Medical Necessity: Significant Comorbidiites Make Outpatient Treatment Too Risky, Need Close Monitoring Due to Risk of Patient Decompensation, Need For IV Fluids, Need For Continuous Telemetry Monitoring, Need for IV Antibiotics, Risk of Complication if Not Cared For in Hospital, Risk of Diagnosis Which Will Require Inpatient Eval/Care/Monitoring Post Hospital Care: D/C Excel Specialist Documentation, D/C or Transfer Summary - Plan Summary Plan Summary: Continue current medication management. I discussed with family account development representative, Daughter Marta Short, regarding disposition plan.
[2020-03-04] MEDS: LOSARTAN POTASSIUM 50 MG TABLET PO SCH (08:59)
[2020-03-04] MEDS: CHOLECALCIFEROL (D3) 1,000 UNIT (25 MCG) TABLET PO SCH (08:59)
[2020-03-04] MEDS: ZINC SULFATE 220 MG CAPSULE PO SCH (08:59)
[2020-03-04] MEDS: KETOCONAZOLE 2% SHAMPOO 120 ML BOTTLE TP SCH (09:00)
[2020-03-04] MEDS: FAMOTIDINE INJ/PF 20 MG/2 ML SDV IV SCH (09:01)
[2020-03-04] MEDS: CEFEPIME 1 GM/D5W RTU 1 GM/50 ML RTUPB IV SCH (11:09)
[2020-03-04] MEDS: DEXTROSE 5%-WATER 1000 ML 1,000 ML IV PRN (11:13)
--- NOTE | 2020-03-04 17:28 | PDOC PROGRESS REPORT ---
Subjective Date:: 03/04/20 Subjective:: No reported chest pain or observed difficulty with breathing. No reported fever or vomiting. Remain on NPO status due to high risk of recurrent aspiration. Reason For Visit: TOXIC ENCEPHALOPATHY,COVID-19 PUI,PROBABLE PNEUMON Physical Exam Vital Signs: Temp Pulse Resp BP Pulse Ox 97.9 F 125 H 22 H 140/86 H 93 03/04/20 16:48 03/04/20 16:48 03/04/20 16:48 03/04/20 16:48 03/04/20 16:48 Intake & Output 03/03/20 03/04/20 03/05/20 06:59 06:59 06:59 Intake Total 4396 2223 937 Output Total 3200 3185 780 Balance 1196 -962 157 Weight 55.3 kg 54.4 kg Physical Exam: General appearance: PRESENT: thin, confused Head exam: PRESENT: atraumatic, normocephalic Eye exam: PRESENT: conjunctiva pink. ABSENT: pallor, sclera icterus Mouth exam: PRESENT: fairly moist Respiratory exam: PRESENT: clear to auscultation emily, scattered crackles, decreased breath sounds - at lung bases Cardiovascular exam: PRESENT: RRR. ABSENT: diastolic murmur, rubs, systolic murmur GI/Abdominal exam: PRESENT: normal bowel sounds, soft. ABSENT: tenderness Genitourinary exam: PRESENT: indwelling catheter. Extremities exam: ABSENT: pedal edema Neurological exam: PRESENT: awake, confused Psychiatric exam: PRESENT: awake, not agitated presently. Skin exam: PRESENT: dry, warm Results Laboratory Results: 03/03/20 10:30 03/03/20 10:30 02/11/20 02/11/20 14:20 14:20 Creatine Kinase 38 L Troponin I < 0.012 Impressions: Head CT 02/11/20 14:26 IMPRESSION: CHRONIC CHANGES OF ATROPHY AND MICROVASCULAR ISCHEMIA. NO ACUTE PROCESS. EVIDENCE OF ACUTE STROKE: NO. Modified Barium Swallow 02/25/20 09:47 IMPRESSION: LARYNGEAL PENETRATION AND ASPIRATION ABOVE. PLEASE SEE SPEECH PATHOLOGIST REPORT FOR OTHER FINDINGS AND RECOMMENDATIONS. Chest X-Ray 02/28/20 06:00 IMPRESSION: Right lower lobe pneumonia. No significant change. Assessment & Plan - Diagnosis (1) Toxic encephalopathy Is this a current diagnosis for this admission?: Yes (2) Pneumonia Qualifiers: Pneumonia type: due to unspecified organism Laterality: left Lung location: lower lobe of lung Qualified Code(s): J18.9 - Pneumonia, unspecified organism Is this a current diagnosis for this admission?: Yes (3) COVID-19 virus test result unknown Is this a current diagnosis for this admission?: Yes (4) Hypertension Qualifiers: Hypertension type: unspecified Qualified Code(s): I10 - Essential (primary) hypertension Is this a current diagnosis for this admission?: Yes (5) Seborrhea capitis in adult Is this a current diagnosis for this admission?: Yes (6) Urinary retention Is this a current diagnosis for this admission?: Yes (7) Traumatic hematuria Is this a current diagnosis for this admission?: Yes - Time Time Spent with patient: 25-34 minutes Level of Care: IMCU Medications reviewed and adjusted accordingly: Yes Anticipated discharge: SNF, Hospice Anticipated DC Timeframe: within 72 hours - Inpatient Certification Based on my medical assessment, after consideration of the patient's comorbidities, presenting symptoms, or acuity I expect that the services needed warrant INPATIENT care.: Yes I certify that my determination is in accordance with my understanding of Medicare's requirements for reasonable and necessary INPATIENT services [42 CFR 412.3e].: Yes Medical Necessity: Significant Comorbidiites Make Outpatient Treatment Too Risky, Need Close Monitoring Due to Risk of Patient Decompensation, Need For IV Fluids, Need For Continuous Telemetry Monitoring, Risk of Complication if Not Cared For in Hospital, Risk of Diagnosis Which Will Require Inpatient Eval/Care/Monitoring Post Hospital Care: D/C Stain Dipper Documentation, D/C or Transfer Summary - Plan Summary Plan Summary: Continue current medical management. Follow up with family regarding discharge plan.
[2020-03-04] MEDS: LEVOFLOXACIN 500 MG/D5W RTU 500 MG/100 ML RTUPB IV SCH (17:49)
[2020-03-04] MEDS: NORMAL SALINE 1000 ML 1,000 ML with POTASSIUM CHLORIDE 20 MEQ, MAGNESIUM SULFATE 8 MEQ,... IV SCH ×5 (17:50)
[2020-03-05] MEDS: CEFEPIME 1 GM/D5W RTU 1 GM/50 ML RTUPB IV SCH ×3 (00:01→23:37)
[2020-03-05] MEDS: FAMOTIDINE INJ/PF 20 MG/2 ML SDV IV SCH ×3 (00:02→21:08)
[2020-03-05] MEDS: DEXTROSE 5%-WATER 1000 ML 1,000 ML IV PRN (01:47)
[2020-03-05] MEDS: LOSARTAN POTASSIUM 50 MG TABLET PO SCH (11:14)
[2020-03-05] MEDS: ZINC SULFATE 220 MG CAPSULE PO SCH (11:14)
[2020-03-05] MEDS: CHOLECALCIFEROL (D3) 1,000 UNIT (25 MCG) TABLET PO SCH (11:14)
[2020-03-05] MEDS: KETOCONAZOLE 2% SHAMPOO 120 ML BOTTLE TP SCH (11:20)
--- NOTE | 2020-03-05 17:16 | PDOC PROGRESS REPORT ---
Subjective Date:: 03/05/20 Subjective:: No reported chest pain or observed difficulty with breathing. No reported fever or vomiting. Remain on NPO status due to high risk of recurrent aspiration. I had discussion with patient's son and daughter yesterday, presently family is requesting for PEG tube placement despite my professional recommendation of minimal benefit in advance dementia patient. Reason For Visit: TOXIC ENCEPHALOPATHY,COVID-19 PUI,PROBABLE PNEUMON Physical Exam Vital Signs: Temp Pulse Resp BP Pulse Ox 98.2 F 81 22 H 107/88 H 98 03/05/20 08:00 03/05/20 08:00 03/05/20 08:00 03/05/20 08:00 03/05/20 08:00 Intake & Output 03/04/20 03/05/20 03/06/20 06:59 06:59 06:59 Intake Total 2223 3160 Output Total 3185 2280 Balance -962 880 Weight 54.4 kg 53.5 kg Physical Exam: General appearance: PRESENT: thin, confused Head exam: PRESENT: atraumatic, normocephalic Eye exam: PRESENT: conjunctiva pink. ABSENT: pallor, sclera icterus Mouth exam: PRESENT: fairly moist Respiratory exam: PRESENT: clear to auscultation emily, decreased breath sounds - at lung bases Cardiovascular exam: PRESENT: RRR. ABSENT: diastolic murmur, rubs, systolic murmur GI/Abdominal exam: PRESENT: normal bowel sounds, soft. ABSENT: tenderness Genitourinary exam: PRESENT: indwelling catheter. Extremities exam: ABSENT: pedal edema Neurological exam: PRESENT: awake, confused Psychiatric exam: PRESENT: awake, not agitated presently. Skin exam: PRESENT: dry, warm Results Laboratory Results: 03/03/20 10:30 03/03/20 10:30 02/11/20 02/11/20 14:20 14:20 Creatine Kinase 38 L Troponin I < 0.012 Impressions: Head CT 02/11/20 14:26 IMPRESSION: CHRONIC CHANGES OF ATROPHY AND MICROVASCULAR ISCHEMIA. NO ACUTE PROCESS. EVIDENCE OF ACUTE STROKE: NO. Modified Barium Swallow 02/25/20 09:47 IMPRESSION: LARYNGEAL PENETRATION AND ASPIRATION ABOVE. PLEASE SEE SPEECH PATHOLOGIST REPORT FOR OTHER FINDINGS AND RECOMMENDATIONS. Chest X-Ray 02/28/20 06:00 IMPRESSION: Right lower lobe pneumonia. No significant change. Assessment & Plan - Diagnosis (1) Toxic encephalopathy Is this a current diagnosis for this admission?: Yes (2) Pneumonia Qualifiers: Pneumonia type: due to unspecified organism Laterality: left Lung location: lower lobe of lung Qualified Code(s): J18.9 - Pneumonia, unspecified organism Is this a current diagnosis for this admission?: Yes (3) COVID-19 virus test result unknown Is this a current diagnosis for this admission?: Yes (4) Hypertension Qualifiers: Hypertension type: unspecified Qualified Code(s): I10 - Essential (primary) hypertension Is this a current diagnosis for this admission?: Yes (5) Seborrhea capitis in adult Is this a current diagnosis for this admission?: Yes (6) Urinary retention Is this a current diagnosis for this admission?: Yes (7) Traumatic hematuria Is this a current diagnosis for this admission?: Yes - Time Time Spent with patient: 25-34 minutes Level of Care: IMCU Medications reviewed and adjusted accordingly: Yes Anticipated discharge: SNF, Hospice Anticipated DC Timeframe: within 72 hours - Inpatient Certification Based on my medical assessment, after consideration of the patient's comorb idities, presenting symptoms, or acuity I expect that the services needed warrant INPATIENT care.: Yes I certify that my determination is in accordance with my understanding of Medicare's requirements for reasonable and necessary INPATIENT services [42 CFR 412.3e].: Yes Medical Necessity: Significant Comorbidiites Make Outpatient Treatment Too Risky, Need Close Monitoring Due to Risk of Patient Decompensation, Need For IV Fluids, Need For Continuous Telemetry Monitoring, Risk of Complication if Not Cared For in Hospital, Risk of Diagnosis Which Will Require Inpatient Eval/Care/Monitoring Post Hospital Care: D/C Industrial Waste Inspector Documentation, D/C or Transfer Summary - Plan Summary Plan Summary: Continue current medical management. Obtain surgicalist consultation to evaluate for PEG tube placement.
[2020-03-05] MEDS: LEVOFLOXACIN 500 MG/D5W RTU 500 MG/100 ML RTUPB IV SCH (17:42)
[2020-03-05] MEDS: NORMAL SALINE 1000 ML 1,000 ML with POTASSIUM CHLORIDE 20 MEQ, MAGNESIUM SULFATE 8 MEQ,... IV SCH ×5 (17:42)
--- NOTE | 2020-03-06 06:59 | PDOC CONSULTATION ---
Consultation Consult Date: 03/06/20 Provider Consulted: SURGICAL SURGICALIST Consult reason:: eval for PEG History of Present Illness Admission Date/PCP: 02/11/20 19:28 AMMON WALKER History of Present Illness: DONG CAO is a 89 year old male seen in consultation at the request of Dr. Johnson. Patient has advanced dementia. He awakens to voice, but is restless, and mumbles incoherent words. He does not respond appropriately to questions. Nurses report that he pulls at lines and monitors records. He is currently in restraints. There is no family at bedside to converse with. The patient cannot relay his own medical history due to his current mental status. History is obtained from the nurses and the medical record. He does not appear to be in any distress at this time. Past Medical History Psychiatric Medical History: Reports: Dementia Denies: Depression Social History Smoking Status: Never Smoker Electronic Cigarette use?: No - Advance Directive Resuscitation Status: Do Not Resuscitate Family History Family History: Reviewed & Not Pertinent Parental Family History Reviewed: No - Unavailable Children Family History Reviewed: Unknown Sibling(s) Family History Reviewed.: Unknown Medication/Allergy Home Medications: No Home Medications 02/11/20 Allergies/Adverse Reactions: No Known Allergies Allergy (Verified 02/11/20 14:30) Review of Systems ROS unobtainable: Due to mental status Physical Exam Vital Signs: Temp Pulse Resp BP Pulse Ox 98.4 F 80 28 H 119/92 H 92 03/06/20 02:00 03/06/20 02:00 03/06/20 02:00 03/06/20 02:00 03/06/20 02:00 Intake & Output 03/04/20 03/05/20 03/06/20 06:59 06:59 06:59 Intake Total 2223 3160 1150 Output Total 3185 2280 1400 Balance -962 880 -250 Weight 54.4 kg 53.5 kg General appearance: PRESENT: no acute distress, disheveled, thin. ABSENT: cooperative Head exam: PRESENT: atraumatic, normocephalic Eye exam: ABSENT: scleral icterus Mouth exam: PRESENT: moist Neck exam: ABSENT: meningismus, tenderness, thyromegaly, tracheal deviation Respiratory exam: PRESENT: unlabored. ABSENT: wheezes Cardiovascular exam: ABSENT: tachycardia GI/Abdominal exam: PRESENT: soft. ABSENT: distended, firm, guarding, tenderness Rectal exam: PRESENT: deferred Extremities exam: PRESENT: other - In restraints, bilateral upper extremities. ABSENT: clubbing Neurological exam: PRESENT: awake. ABSENT: alert, oriented to person, oriented to place, oriented to time, oriented to situation Psychiatric exam: PRESENT: agitated Focused psych exam: PRESENT: other - Incomprehensible speech, no appropriate response to questions. Skin exam: ABSENT: cyanosis, erythema, jaundice Results Laboratory Results: 03/03/20 10:30 03/03/20 10:30 02/11/20 02/11/20 14: 14: Creatine Kinase 38 L Troponin I < 0.012 Impressions: Head CT 02/11/20 14:26 IMPRESSION: CHRONIC CHANGES OF ATROPHY AND MICROVASCULAR ISCHEMIA. NO ACUTE PROCESS. EVIDENCE OF ACUTE STROKE: NO. Modified Barium Swallow 02/25/20 09:47 IMPRESSION: LARYNGEAL PENETRATION AND ASPIRATION ABOVE. PLEASE SEE SPEECH PATHOLOGIST REPORT FOR OTHER FINDINGS AND RECOMMENDATIONS. Chest X-Ray 02/28/20 06:00 IMPRESSION: Right lower lobe pneumonia. No significant change. Assessment & Plan - Diagnosis (1) Mental status alteration Qualifiers: Altered mental status type: unspecified Qualified Code(s): R41.82 - Altered mental status, unspecified Is this a current diagnosis for this admission?: Yes - Plan Summary Plan Summary: 89-year-old male with altered mental status. The chart reports the patient has advanced dementia. On examination, he is confused and agitated. Nurses report that he is pulling at lines and monitors. He has aspirated, and is now being treated for aspiration pneumonia. He has failed a swallowing study. This patient is high risk for complications from gastrostomy insertion. I do not believe the risk-benefit ratio is favorable. I will discussed the case with the oncoming surgicalist today, and he can discuss the situation with the patient's family. I would recommend avoidance of gastrostomy tubes in this patient. Surgery will continue to follow.
[2020-03-06] MEDS: DEXTROSE 5%-WATER 1000 ML 1,000 ML IV PRN ×2 (08:05→23:42)
[2020-03-06] MEDS: ZINC SULFATE 220 MG CAPSULE PO SCH (10:27)
[2020-03-06] MEDS: CHOLECALCIFEROL (D3) 1,000 UNIT (25 MCG) TABLET PO SCH (10:27)
[2020-03-06] MEDS: LOSARTAN POTASSIUM 50 MG TABLET PO SCH (10:27)
[2020-03-06] MEDS: FAMOTIDINE INJ/PF 20 MG/2 ML SDV IV SCH ×2 (10:32→21:39)
[2020-03-06] MEDS: KETOCONAZOLE 2% SHAMPOO 120 ML BOTTLE TP SCH (10:32)
--- NOTE | 2020-03-06 10:39 | PDOC PROGRESS REPORT ---
Subjective Date:: 03/06/20 Subjective:: Uncooperative in restraints. Nursing staff notes that he is pulling on everythi ng. Reason For Visit: TOXIC ENCEPHALOPATHY,COVID-19 PUI,PROBABLE PNEUMON Physical Exam Vital Signs: Temp Pulse Resp BP Pulse Ox 98.0 F 106 H 20 126/69 H 98 03/06/20 08:00 03/06/20 08:00 03/06/20 08:00 03/06/20 08:00 03/06/20 08:00 Intake & Output 03/05/20 03/06/20 03/07/20 06:59 06:59 06:59 Intake Total 3160 1150 Output Total 2280 2250 Balance 880 -1100 Weight 53.5 kg 52.9 kg GI/Abdominal exam: PRESENT: other - Flat, no apparent tenderness. Results Laboratory Results: 03/03/20 10:30 03/03/20 10:30 02/11/20 02/11/20 14:20 14:20 Creatine Kinase 38 L Troponin I < 0.012 Impressions: Head CT 02/11/20 14:26 IMPRESSION: CHRONIC CHANGES OF ATROPHY AND MICROVASCULAR ISCHEMIA. NO ACUTE PROCESS. EVIDENCE OF ACUTE STROKE: NO. Modified Barium Swallow 02/25/20 09:47 IMPRESSION: LARYNGEAL PENETRATION AND ASPIRATION ABOVE. PLEASE SEE SPEECH PATHOLOGIST REPORT FOR OTHER FINDINGS AND RECOMMENDATIONS. Chest X-Ray 02/28/20 06:00 IMPRESSION: Right lower lobe pneumonia. No significant change. Assessment & Plan - Diagnosis (1) Mental status alteration Qualifiers: Altered mental status type: unspecified Qualified Code(s): R41.82 - Altered mental status, unspecified Is this a current diagnosis for this admission?: Yes Plan: Encephalopathy, aspiration risk with p.o. intake. Surgical list being consulted for a.m. percutaneous endoscopic gastrostomy tube placement. With the patient's mental status, agitation and him pulling out lines, he is high risk for pulling out a percutaneous endoscopic gastrostomy tube. If that was to occur, patient will require surgical intervention to prevent peritonitis. Another option would be a surgical feeding tube however patient is at high risk of pulling out a surgical feeding tube as well, although the procedure could be done in a fashion that with the prevent peritonitis in case of the tube displacement. With his current mental status I do not recommend either of these procedures. If his mental status improves to the point where he is more cooperative, then we can reconsider. I have had a long discussion with the patient's concerning all of my concerns. She stands and concurs with my recommendation. Surgery service signing off. Please call us for any concerns or questions. - Time Anticipated Discharge Disposition: [facility] Facility Anticipated Discharge Timeframe: week
[2020-03-06] MEDS: NORMAL SALINE 1000 ML 1,000 ML with POTASSIUM CHLORIDE 20 MEQ, MAGNESIUM SULFATE 8 MEQ,... IV SCH ×5 (17:03)
[2020-03-06] MEDS: LEVOFLOXACIN 500 MG/D5W RTU 500 MG/100 ML RTUPB IV SCH (17:04)
--- NOTE | 2020-03-06 18:24 | PDOC PROGRESS REPORT ---
Subjective Date:: 03/06/20 Subjective:: No reported chest pain or observed difficulty with breathing. No reported fever or vomiting. Remain on NPO status due to high risk of recurrent aspiration. Patient failed bedside swallowing test again. Surgical team input appreciated. Reason For Visit: TOXIC ENCEPHALOPATHY,COVID-19 PUI,PROBABLE PNEUMON Physical Exam Vital Signs: Temp Pulse Resp BP Pulse Ox 98.1 F 77 18 132/75 H 97 03/06/20 16:00 03/06/20 16:00 03/06/20 16:00 03/06/20 16:00 03/06/20 16:00 Intake & Output 03/05/20 03/06/20 03/07/20 06:59 06:59 06:59 Intake Total 3160 2173 Output Total 2280 2250 850 Balance 880 -77 -850 Weight 53.5 kg 52.9 kg Physical Exam: General appearance: PRESENT: thin, confused Head exam: PRESENT: atraumatic, normocephalic Eye exam: PRESENT: conjunctiva pink. ABSENT: pallor, sclera icterus Mouth exam: PRESENT: fairly moist Respiratory exam: PRESENT: clear to auscultation emily, decreased breath sounds - at lung bases Cardiovascular exam: PRESENT: RRR. ABSENT: diastolic murmur, rubs, systolic murmur GI/Abdominal exam: PRESENT: normal bowel sounds, soft. Genitourinary exam: PRESENT: indwelling catheter. Extremities exam: ABSENT: pedal edema Neurological exam: PRESENT: awake, confused Psychiatric exam: PRESENT: awake, agitated presently with mittens and wrist restraints in use.. Skin exam: PRESENT: dry, warm Results Laboratory Results: 03/03/20 10:30 03/03/20 10:30 02/11/20 02/11/20 14:20 14:20 Creatine Kinase 38 L Troponin I < 0.012 Impressions: Head CT 02/11/20 14:26 IMPRESSION: CHRONIC CHANGES OF ATROPHY AND MICROVASCULAR ISCHEMIA. NO ACUTE PROCESS. EVIDENCE OF ACUTE STROKE: NO. Modified Barium Swallow 02/25/20 09:47 IMPRESSION: LARYNGEAL PENETRATION AND ASPIRATION ABOVE. PLEASE SEE SPEECH PATHOLOGIST REPORT FOR OTHER FINDINGS AND RECOMMENDATIONS. Chest X-Ray 02/28/20 06:00 IMPRESSION: Right lower lobe pneumonia. No significant change. Assessment & Plan - Diagnosis (1) Toxic encephalopathy Is this a current diagnosis for this admission?: Yes (2) Pneumonia Qualifiers: Pneumonia type: due to unspecified organism Laterality: left Lung location: lower lobe of lung Qualified Code(s): J18.9 - Pneumonia, unspecified organism Is this a current diagnosis for this admission?: Yes (3) COVID-19 virus test result unknown Is this a current diagnosis for this admission?: Yes (4) Hypertension Qualifiers: Hypertension type: unspecified Qualified Code(s): I10 - Essential (primary) hypertension Is this a current diagnosis for this admission?: Yes (5) Seborrhea capitis in adult Is this a current diagnosis for this admission?: Yes (6) Urinary retention Is this a current diagnosis for this admission?: Yes (7) Traumatic hematuria Is this a current diagnosis for this admission?: Yes - Time Time Spent with patient: 25-34 minutes Level of Care: IMCU Medications reviewed and adjusted accordingly: Yes Anticipated discharge: SNF, Hospice Anticipated DC Timeframe: within 72 hours - Inpatient Certification Based on my medical assessment, after consideration of the patient's com orbidities, presenting symptoms, or acuity I expect that the services needed warrant INPATIENT care.: Yes I certify that my determination is in accordance with my understanding of Medicare's requirements for reasonable and necessary INPATIENT services [42 CFR 412.3e].: Yes Medical Necessity: Significant Comorbidiites Make Outpatient Treatment Too Risky, Need Close Monitoring Due to Risk of Patient Decompensation, Need For IV Fluids, Need For Continuous Telemetry Monitoring, Risk of Complication if Not Cared For in Hospital, Risk of Diagnosis Which Will Require Inpatient Eval/Care/Monitoring Post Hospital Care: D/C Material Cutter Documentation, D/C or Transfer Summary - Plan Summary Plan Summary: Continue current medication management. Follow up with family regarding di benjy planning.
[2020-03-06] MEDS: HALOPERIDOL LACTATE INJ 5 MG/1 ML VIAL IV PRN (23:16)
[2020-03-07] MEDS: LOSARTAN POTASSIUM 50 MG TABLET PO SCH (09:37)
[2020-03-07] MEDS: ZINC SULFATE 220 MG CAPSULE PO SCH (09:38)
[2020-03-07] MEDS: CHOLECALCIFEROL (D3) 1,000 UNIT (25 MCG) TABLET PO SCH (09:38)
[2020-03-07] MEDS: FAMOTIDINE INJ/PF 20 MG/2 ML SDV IV SCH ×2 (09:41→21:50)
[2020-03-07] MEDS: KETOCONAZOLE 2% SHAMPOO 120 ML BOTTLE TP SCH (09:41)
[2020-03-07] MEDS: DEXTROSE 5%-WATER 1000 ML 1,000 ML IV PRN (14:25)
--- NOTE | 2020-03-07 15:43 | PDOC PROGRESS REPORT ---
Subjective Date:: 03/07/20 Subjective:: No reported chest pain or observed difficulty with breathing. No reported fever or vomiting. Remain on NPO status due to high risk of recurrent aspiration. Patient failed bedside swallowing test again. Reason For Visit: TOXIC ENCEPHALOPATHY,COVID-19 PUI,PROBABLE PNEUMON Physical Exam Vital Signs: Temp Pulse Resp BP Pulse Ox 97.4 F 80 18 184/109 H 89 L 03/07/20 12:19 03/07/20 14:00 03/07/20 12:19 03/07/20 12:19 03/07/20 12:19 Intake & Output 03/06/20 03/07/20 03/08/20 06:59 06:59 06:59 Intake Total 2173 2123 1000 Output Total 2250 3400 700 Balance -77 -1277 300 Weight 52.9 kg 52.9 kg 52.9 kg Physical Exam: General appearance: PRESENT: thin, confused, agitated and pulling on Boudreaux catheter. Head exam: PRESENT: atraumatic, normocephalic Eye exam: PRESENT: conjunctiva pink. ABSENT: pallor, sclera icterus Mouth exam: PRESENT: fairly moist Respiratory exam: PRESENT: clear to auscultation emily, decreased breath sounds - at lung bases Cardiovascular exam: PRESENT: RRR. ABSENT: diastolic murmur, rubs, systolic m urmur GI/Abdominal exam: PRESENT: normal bowel sounds, soft. Genitourinary exam: PRESENT: indwelling catheter. Extremities exam: ABSENT: pedal edema Neurological exam: PRESENT: awake, confused Psychiatric exam: PRESENT: awake, agitated presently with mittens and wrist restraints in use.. Skin exam: PRESENT: dry, warm Results Laboratory Results: 03/03/20 10:30 03/03/20 10:30 02/11/20 02/11/20 14:20 14:20 Creatine Kinase 38 L Troponin I < 0.012 Impressions: Head CT 02/11/20 14:26 IMPRESSION: CHRONIC CHANGES OF ATROPHY AND MICROVASCULAR ISCHEMIA. NO ACUTE PROCESS. EVIDENCE OF ACUTE STROKE: NO. Modified Barium Swallow 02/25/20 09:47 IMPRESSION: LARYNGEAL PENETRATION AND ASPIRATION ABOVE. PLEASE SEE SPEECH PATHOLOGIST REPORT FOR OTHER FINDINGS AND RECOMMENDATIONS. Chest X-Ray 02/28/20 06:00 IMPRESSION: Right lower lobe pneumonia. No significant change. Assessment & Plan - Diagnosis (1) Toxic encephalopathy Is this a current diagnosis for this admission?: Yes (2) Pneumonia Qualifiers: Pneumonia type: due to unspecified organism Laterality: left Lung location: lower lobe of lung Qualified Code(s): J18.9 - Pneumonia, unspecified organism Is this a current diagnosis for this admission?: Yes (3) COVID-19 virus test result unknown Is this a current diagnosis for this admission?: Yes (4) Hypertension Qualifiers: Hypertension type: unspecified Qualified Code(s): I10 - Essential (primary) hypertension Is this a current diagnosis for this admission?: Yes (5) Seborrhea capitis in adult Is this a current diagnosis for this admission?: Yes (6) Urinary retention Is this a current diagnosis for this admission?: Yes (7) Traumatic hematuria Is this a current diagnosis for this admission?: Yes - Time Time Spent with patient: 25-34 minutes Level of Care: IMCU Medications reviewed and adjusted accordingly: Yes Anticipated discharge: Home with Homehealth, Hospice Anticipated DC Timeframe: within 72 hours - Inpatient Certification Based on my medical assessment, after consideration of the patient's comorbidities, presenting symptoms, or acuity I expect that the services needed warrant INPATIENT care.: Yes I certify that my determination is in accordance with my understanding of Medicare's requirements for reasonable and necessary INPATIENT services [42 CFR 412.3e].: Yes Medical Necessity: Significant Comorbidiites Make Outpatient Treatment Too Risky, Need Close Monitoring Due to Risk of Patient Decompensation, Need For IV Fluids, Need For Continuous Telemetry Monitoring, Need for IV Antibiotics, Risk of Complication if Not Cared For in Hospital, Risk of Diagnosis Which Will Require Inpatient Eval/Care/Monitoring Post Hospital Care: D/C Drafter Commercial Documentation - Plan Summary Plan Summary: Continue current medication management. I had extensive discussion with patient's daughter regarding discharge planning. she will decide on Hospice agency to engage patient upon discharge. D/C business planner input noted.
[2020-03-07] MEDS: NORMAL SALINE 1000 ML 1,000 ML with POTASSIUM CHLORIDE 20 MEQ, MAGNESIUM SULFATE 8 MEQ,... IV SCH ×5 (17:07)
[2020-03-07] MEDS: LEVOFLOXACIN 500 MG/D5W RTU 500 MG/100 ML RTUPB IV SCH (17:08)
[2020-03-07] MEDS: HALOPERIDOL LACTATE INJ 5 MG/1 ML VIAL IV PRN (21:50)
[2020-03-08] MEDS: DEXTROSE 5%-WATER 1000 ML 1,000 ML IV PRN ×2 (04:43→18:02)
[2020-03-08] MEDS: LOSARTAN POTASSIUM 50 MG TABLET PO SCH (11:22)
[2020-03-08] MEDS: ZINC SULFATE 220 MG CAPSULE PO SCH (11:23)
[2020-03-08] MEDS: CHOLECALCIFEROL (D3) 1,000 UNIT (25 MCG) TABLET PO SCH (11:23)
[2020-03-08] MEDS: KETOCONAZOLE 2% SHAMPOO 120 ML BOTTLE TP SCH (11:24)
[2020-03-08] MEDS: FAMOTIDINE INJ/PF 20 MG/2 ML SDV IV SCH ×2 (11:24→21:30)
[2020-03-08] MEDS: HALOPERIDOL LACTATE INJ 5 MG/1 ML VIAL IV PRN ×2 (11:43→20:03)
[2020-03-08] MEDS: NORMAL SALINE 1000 ML 1,000 ML with POTASSIUM CHLORIDE 20 MEQ, MAGNESIUM SULFATE 8 MEQ,... IV SCH ×5 (18:02)
[2020-03-08] MEDS: LEVOFLOXACIN 500 MG/D5W RTU 500 MG/100 ML RTUPB IV SCH (18:03)
--- NOTE | 2020-03-08 21:59 | PDOC PROGRESS REPORT ---
Subjective Date:: 03/08/20 Subjective:: No reported chest pain or observed difficulty with breathing. No reported fever or vomiting. Reason For Visit: TOXIC ENCEPHALOPATHY,COVID-19 PUI,PROBABLE PNEUMON Physical Exam Vital Signs: Temp Pulse Resp BP Pulse Ox 97.5 F 84 18 130/82 H 100 03/08/20 12:00 03/08/20 12:00 03/08/20 12:00 03/08/20 12:00 03/08/20 12:00 Intake & Output 03/07/20 03/08/20 03/09/20 06:59 06:59 06:59 Intake Total 2123 3123 Output Total 3400 2425 Balance -1277 698 Weight 52.9 kg 53 kg Physical Exam: General appearance: PRESENT: thin, confused, agitated and pulling on Boudreaux catheter. Head exam: PRESENT: atraumatic, normocephalic Eye exam: PRESENT: conjunctiva pink. ABSENT: pallor, sclera icterus Mouth exam: PRESENT: fairly moist Respiratory exam: PRESENT: clear to auscultation emily, decreased breath sounds - at lung bases Cardiovascular exam: PRESENT: RRR. ABSENT: diastolic murmur, rubs, systolic murmur GI/Abdominal exam: PRESENT: normal bowel sounds, soft. Genitourinary exam: PRESENT: indwelling catheter. Extremities exam: ABSENT: pedal edema Neurological exam: PRESENT: awake, confused Psychiatric exam: PRESENT: awake, mittens and wrist restraints in use. Skin exam: PRESENT: dry, warm Results Laboratory Results: 03/03/20 10:30 03/03/20 10:30 02/11/20 02/11/20 14:20 14:20 Creatine Kinase 38 L Troponin I < 0.012 Impressions: Head CT 02/11/20 14:26 IMPRESSION: CHRONIC CHANGES OF ATROPHY AND MICROVASCULAR ISCHEMIA. NO ACUTE PROCESS. EVIDENCE OF ACUTE STROKE: NO. Modified Barium Swallow 02/25/20 09:47 IMPRESSION: LARYNGEAL PENETRATION AND ASPIRATION ABOVE. PLEASE SEE SPEECH PATHOLOGIST REPORT FOR OTHER FINDINGS AND RECOMMENDATIONS. Chest X-Ray 02/28/20 06:00 IMPRESSION: Right lower lobe pneumonia. No significant change. Assessment & Plan - Diagnosis (1) Toxic encephalopathy Is this a current diagnosis for this admission?: Yes (2) Pneumonia Qualifiers: Pneumonia type: due to unspecified organism Laterality: left Lung location: lower lobe of lung Qualified Code(s): J18.9 - Pneumonia, unspecified organism Is this a current diagnosis for this admission?: Yes (3) COVID-19 virus test result unknown Is this a current diagnosis for this admission?: Yes (4) Hypertension Qualifiers: Hypertension type: unspecified Qualified Code(s): I10 - Essential (primary) hypertension Is this a current diagnosis for this admission?: Yes (5) Seborrhea capitis in adult Is this a current diagnosis for this admission?: Yes (6) Urinary retention Is this a current diagnosis for this admission?: Yes (7) Traumatic hematuria Is this a current diagnosis for this admission?: Yes - Time Time Spent with patient: 25-34 minutes Level of Care: IMCU Medications reviewed and adjusted accordingly: Yes Anticipated discharge: SNF, Hospice Anticipated DC Timeframe: within 48 hours - Inpatient Certification Based on my medical assessment, after consideration of the patient's comorbidities, presenting symptoms, or acuity I expect that the services needed warrant INPATIENT care.: Yes I certify that my determination is in accordance with my understanding of Medicare's requirements for reasonable and necessary INPATIENT services [42 CFR 412.3e].: Yes Medical Necessity: Significant Comorbidiites Make Outpatient Treatment Too Risky, Need Close Monitoring Due to Risk of Patient Decompensation, Need For IV Fluids, Risk of Complication if Not Cared For in Hospital, Risk of Diagnosis Which Will Require Inpatient Eval/Care/Monitoring Post Hospital Care: D/C Coding Quality Analyst Documentation, D/C or Transfer Summary - Plan Summary Plan Summary: Continue current medication management. Discussed with family possible discharge in next 48 hours.
[2020-03-09] MEDS: DEXTROSE 5%-WATER 1000 ML 1,000 ML IV PRN (11:16)
[2020-03-09] MEDS: HALOPERIDOL LACTATE INJ 5 MG/1 ML VIAL IV PRN ×2 (11:16→21:55)
[2020-03-09] MEDS: FAMOTIDINE INJ/PF 20 MG/2 ML SDV IV SCH ×2 (11:16→21:55)
[2020-03-09] MEDS: LOSARTAN POTASSIUM 50 MG TABLET PO SCH (12:56)
[2020-03-09] MEDS: CHOLECALCIFEROL (D3) 1,000 UNIT (25 MCG) TABLET PO SCH (12:57)
[2020-03-09] MEDS: ZINC SULFATE 220 MG CAPSULE PO SCH (12:57)
[2020-03-09] MEDS: KETOCONAZOLE 2% SHAMPOO 120 ML BOTTLE TP SCH (12:57)
[2020-03-09] MEDS: NORMAL SALINE 1000 ML 1,000 ML with POTASSIUM CHLORIDE 20 MEQ, MAGNESIUM SULFATE 8 MEQ,... IV SCH ×5 (17:21)
[2020-03-09] MEDS: LEVOFLOXACIN 500 MG/D5W RTU 500 MG/100 ML RTUPB IV SCH (17:22)
--- NOTE | 2020-03-09 17:38 | PDOC PROGRESS REPORT ---
Subjective Date:: 03/09/20 Subjective:: No reported chest pain or observed difficulty with breathing. No reported fever or vomiting. Family aware of possible discharge home to hospice tomorrow. Reason For Visit: TOXIC ENCEPHALOPATHY,COVID-19 PUI,PROBABLE PNEUMON Physical Exam Vital Signs: Temp Pulse Resp BP Pulse Ox 98.7 F 96 18 130/90 H 98 03/09/20 16:00 03/09/20 16:00 03/09/20 16:00 03/09/20 16:00 03/09/20 16:00 Intake & Output 03/08/20 03/09/20 03/10/20 06:59 06:59 06:59 Intake Total 3123 1032 2023 Output Total 2425 2500 250 Balance 698 -1468 1773 Weight 53 kg 53 kg Physical Exam: General appearance: PRESENT: thin, confused, agitated and pulling on Boudreaux catheter. Head exam: PRESENT: atraumatic, normocephalic Eye exam: PRESENT: conjunctiva pink. ABSENT: pallor, sclera icterus Mouth exam: PRESENT: fairly moist Respiratory exam: PRESENT: clear to auscultation emily, decreased breath sounds - at lung bases Cardiovascular exam: PRESENT: RRR. ABSENT: diastolic murmur, rubs, systolic murmur GI/Abdominal exam: PRESENT: normal bowel sounds, soft. Genitourinary exam: PRESENT: indwelling catheter. Extremities exam: ABSENT: pedal edema Neurological exam: PRESENT: awake, confused Psychiatric exam: PRESENT: awake, mittens and wrist restraints in use. Skin exam: PRESENT: dry, warm Results Laboratory Results: 03/03/20 10:30 03/03/20 10:30 02/11/20 02/11/20 14:20 14:20 Creatine Kinase 38 L Troponin I < 0.012 Impressions: Head CT 02/11/20 14:26 IMPRESSION: CHRONIC CHANGES OF ATROPHY AND MICROVASCULAR ISCHEMIA. NO ACUTE PROCESS. EVIDENCE OF ACUTE STROKE: NO. Modified Barium Swallow 02/25/20 09:47 IMPRESSION: LARYNGEAL PENETRATION AND ASPIRATION ABOVE. PLEASE SEE SPEECH PATHOLOGIST REPORT FOR OTHER FINDINGS AND RECOMMENDATIONS. Chest X-Ray 02/28/20 06:00 IMPRESSION: Right lower lobe pneumonia. No significant change. Assessment & Plan - Diagnosis (1) Toxic encephalopathy Is this a current diagnosis for this admission?: Yes (2) Pneumonia Qualifiers: Pneumonia type: due to unspecified organism Laterality: left Lung l ocation: lower lobe of lung Qualified Code(s): J18.9 - Pneumonia, unspecified organism Is this a current diagnosis for this admission?: Yes (3) COVID-19 virus test result unknown Is this a current diagnosis for this admission?: Yes (4) Hypertension Qualifiers: Hypertension type: unspecified Qualified Code(s): I10 - Essential (primary) hypertension Is this a current diagnosis for this admission?: Yes (5) Seborrhea capitis in adult Is this a current diagnosis for this admission?: Yes (6) Urinary retention Is this a current diagnosis for this admission?: Yes (7) Traumatic hematuria Is this a current diagnosis for this admission?: Yes - Time Time Spent with patient: 25-34 minutes Level of Care: IMCU Medications reviewed and adjusted accordingly: Yes Anticipated discharge: Hospice Anticipated DC Timeframe: within 24 hours - Inpatient Certification Based on my medical assessment, after consideration of the patient's comorbidities, presenting symptoms, or acuity I expect that the services needed warrant INPATIENT care.: Yes I certify that my determination is in accordance with my understanding of Medicare's requirements for reasonable and necessary INPATIENT services [42 CFR 412.3e].: Yes Medical Necessity: Significant Comorbidiites Make Outpatient Treatment Too Risky, Need Close Monitoring Due to Risk of Patient Decompensation, Need For IV Fluids, Risk of Complication if Not Cared For in Hospital, Risk of Diagnosis Which Will Require Inpatient Eval/Care/Monitoring Post Hospital Care: D/C Supply Cataloguer Documentation - Plan Summary Plan Summary: Continue current medical management.
[2020-03-10] MEDS: DEXTROSE 5%-WATER 1000 ML 1,000 ML IV PRN ×2 (01:42→10:29)
--- NOTE | 2020-03-10 10:06 | PDOC DISCHARGE SUMMARY ---
Impression - Admit/DC Date/PCP Admission Date/Primary Care Provider: 02/11/20 19:28 AMMON WALKER Discharge Date: 03/10/20 - Discharge Diagnosis (1) Toxic encephalopathy Is this a current diagnosis for this admission?: Yes (2) Pneumonia Is this a current diagnosis for this admission?: Yes (3) COVID-19 virus test result unknown Is this a current diagnosis for this admission?: Yes (4) Hypertension Is this a current diagnosis for this admission?: Yes (5) Seborrhea capitis in adult Is this a current diagnosis for this admission?: Yes (6) Urinary retention Is this a current diagnosis for this admission?: Yes (7) Traumatic hematuria Is this a current diagnosis for this admission?: Yes - Assessment Summary: Patient was admitted for generalized weakness, chills, and change in mental state. He presented with elevated blood pressure and did ruled out for any acute stroke. There was concern for air space disease process suggestive of pneumonia on his chest x ray. He ruled out for COVID-19 infection. He was adequately treated with IV fluid support, vitamin and electrolyte infusion, and antibiotic coverage. His stay was complicated by aspiration pneumonia due to his dementia and failed swallowing test. He was seen in consultation by speech pathologist with recommendation to maintain NPO status. Patient was seen by the surgicalist team as per family request for PEG tube placement. Due to his advanced dementia and agitation, he was deemed inappropriate candidate for such intervention. He remain on DNR status and eventually discharged to home hospice program. Patient will benefit from hospital bed to alleviate breathing difficulty and manage his risk for aspiration. - Additional Information Resuscitation Status: Do Not Resuscitate Referrals: AMMON WALKER MD [Primary Care Provider] - Follow up as needed Prescriptions: Acetaminophen 1 supp.rect RC Q6HP PRN #60 supp.rect PRN Reason: Fever >101 Alprazolam [Alprazolam Odt] 0.25 mg PO TIDP PRN #30 tab.rapdis PRN Reason: Anxiety/Agitation Home Medications: Acetaminophen 1 supp.rect RC Q6HP PRN #60 supp.rect 03/10/20 Alprazolam [Alprazolam Odt] 0.25 mg PO TIDP PRN #30 tab.rapdis 03/10/20 History of Present Illiness History of Present Illness: DONG CAO is a 89 year old male patient known to my practice who was recently treated for balanitis and reported incident of fall at his home. Patient presented to the ED via EMS with complain of weakness, change in mental status and chills. There was reported elevated lactic acid level at 3.5 en route to the ED and blood pressure at 192/95 mmHg. His initial evaluation in the ED was significant for persistent elevated blood pressure and concern about possible left lower lobe air space disease process versus atelectesis. His CT brain revealed chronic changes with atrophy. He was unable to contribute to his medical history due to his altered mental status. His medical morbidities are as listed below. He will be admitted for further evaluation and management as well as rule out for COVID-19 infection. Hospital Course Hospital Course: Patient was admitted for generalized weakness, chills, and change in mental state. He presented with elevated blood pressure and did ruled out for any acute stroke. There was concern for air space disease process suggestive of pneumonia on his chest x ray. He ruled out for COVID-19 infection. He was adequately treated with IV fluid support, vitamin and electrolyte infusion, and antibiotic coverage. His stay was complicated by aspiration pneumonia due to his dementia and failed swallowing test. He was seen in consultation by speech pathologist with recommendation to maintain NPO status. Patient was seen by the surgicalist team as per family request for PEG tube placement. Due to his advanced dementia and agitation, he was deemed inappropriate candidate for such intervention. He remain on DNR status and eventually discharged to home hospice program. Patient will benefit from hospital bed to alleviate breathing difficulty and manage his risk for aspiration. Physical Exam Vital Signs: Temp Pulse Resp BP Pulse Ox 98.0 F 76 18 110/53 L 100 03/10/20 00:00 03/10/20 07:00 03/10/20 00:00 03/10/20 00:00 03/10/20 00:00 Intake & Output 03/09/20 03/10/20 03/11/20 06:59 06:59 06:59 Intake Total 1032 4146 Output Total 2519 2250 Balance -1468 1896 Weight 53 kg 57.6 kg General appearance: PRESENT: thin, confused, agitated and pulling on Boudreaux catheter. Head exam: PRESENT: atraumatic, normocephalic Eye exam: PRESENT: conjunctiva pink. ABSENT: pallor, sclera icterus Mouth exam: PRESENT: fairly moist Respiratory exam: PRESENT: clear to auscultation emily Cardiovascular exam: PRESENT: RRR. ABSENT: diastolic murmur, rubs, systolic murmur GI/Abdominal exam: PRESENT: normal bowel sounds, soft. Genitourinary exam: PRESENT: indwelling catheter. Extremities exam: ABSENT: pedal edema Neurological exam: PRESENT: awake, confused Psychiatric exam: PRESENT: awake, mittens and wrist restraints in use. Skin exam: PRESENT: dry, warm Results Laboratory Results: WBC 4.4 10^3/uL (4.0-10.5) 03/03/20 10:30 RBC 3.96 10^6/uL (4.35-5.55) L 03/03/20 10:30 Hgb 12.3 g/dL (13.5-17.0) L 03/03/20 10:30 Hct 36.3 % (37.9-51.0) L 03/03/20 10:30 MCV 92 fl (80-97) 03/03/20 10:30 MCH 31.0 pg (27.0-33.4) 03/03/20 10:30 MCHC 33.8 g/dL (32.0-36.0) 03/03/20 10:30 RDW 13.2 % (11.5-14.0) 03/03/20 10:30 Plt Count 363 10^3/uL (150-450) 03/03/20 10:30 Lymph % (Auto) 20.2 % (13-45) 03/03/20 10:30 Pike % (Auto) 10.6 % (3-13) 03/03/20 10:30 Eos % (Auto) 2.0 % (0-6) 03/03/20 10:30 Baso % (Auto) 0.7 % (0-2) 03/03/20 10:30 Absolute Neuts (auto) 2.9 10^3/uL (1.7-8.2) 03/03/20 10:30 Absolute Lymphs (auto) 0.9 10^3/uL (0.5-4.7) 03/03/20 10:30 Absolute Monos (auto) 0.5 10^3/uL (0.1-1.4) 03/03/20 10:30 Absolute Eos (auto) 0.1 10^3/uL (0.0-0.6) 03/03/20 10:30 Absolute Basos (auto) 0.0 10^3/uL (0.0-0.2) 03/03/20 10:30 Total Counted 100 02/19/20 05:14 Seg Neutrophils % 66.5 % (42-78) 03/03/20 10:30 Seg Neuts % (Manual) 80 % (42-78) H 02/19/20 05:14 Lymphocytes % (Manual) 13 % (13-45) 02/19/20 05:14 Atypical Lymphs % 2 % (0) 02/19/20 05:14 Monocytes % (Manual) 5 % (3-13) 02/19/20 05:14 Eosinophils % (Manual) 0 % (0-6) 02/19/20 05:14 Basophils % (Manual) 0 % (0-2) 02/19/20 05:14 Abs Neuts (Manual) 9.5 10^3/uL (1.7-8.2) H 02/19/20 05:14 Abs Lymphs (Manual) 1.8 10^3/uL (0.5-4.7) 02/19/20 05:14 Abs Monocytes (Manual) 0.6 10^3/uL (0.1-1.4) 02/19/20 05:14 Absolute Eos (Manual) 0.0 10^3/uL (0.0-0.6) 02/19/20 05:14 Abs Basophils (Manual) 0.0 10^3/uL (0.0-0.2) 02/19/20 05:14 Toxic Granulation SLIGHT 02/19/20 05:14 Toxic Vacuolation PRESENT 02/19/20 05:14 Platelet Comment ADEQUATE 02/19/20 05:14 Poikilocytosis SLIGHT 02/19/20 05:14 Ovalocytes SLIGHT 02/19/20 05:14 RBC Morph Comment NORMO-CYTIC/CHROMIC 02/17/20 08:11 PT 14.0 SEC (11.4-15.4) 02/11/20 14:20 INR 1.06 02/11/20 14:20 APTT 37.8 SEC (23.5-35.8) H 02/11/20 14:20 Carbonic Acid 1.36 mmol/L (1.05-1.35) H 02/16/20 19:05 HCO3/H2CO3 Ratio 21:1 02/16/20 19:05 ABG pH 7.43 (7.35-7.45) 02/16/20 19:05 ABG pCO2 45.2 mmHg (35-45) H 02/16/20 19:05 ABG pO2 258.3 mmHg (80-100) H 02/16/20 19:05 ABG HCO3 29.1 mmol/L (20-24) H 02/16/20 19:05 ABG Total CO2 30.4 mmol/L (23-27) H 02/16/20 19:05 ABG O2 Saturation 99.6 % (94-98) H 02/16/20 19:05 ABG Base Excess 4.0 mmol/L 02/16/20 19:05 VBG pH 7.35 (7.30-7.42) 02/11/20 14:20 VBG pCO2 53.2 mmHg (35-63) 02/11/20 14:20 VBG HCO3 28.6 mmol/L (20-32) 02/11/20 14:20 VBG Base Excess 1.9 mmol/L 02/11/20 14:20 FiO2 15L 02/16/20 19:05 Sodium 137.9 mmol/L (137-145) 03/03/20 10:30 Potassium 4.5 mmol/L (3.6-5.0) 03/03/20 10:30 Chloride 103 mmol/L (98-107) 03/03/20 10:30 Carbon Dioxide 29 mmol/L (22-30) 03/03/20 10:30 Anion Gap 6 (5-19) 03/03/20 10:30 BUN 4 mg/dL (7-20) L 03/03/20 10:30 Creatinine 0.61 mg/dL (0.52-1.25) 03/03/20 10:30 Est GFR ( Amer) > 60 (>60) 03/03/20 10:30 Est GFR (Non-Af Amer) Cancelled 02/19/20 05:14 Est GFR (MDRD) Non-Af > 60 (>60) 03/03/20 10:30 Glucose 105 mg/dL (75-110) 03/03/20 10:30 POC Glucose 85 mg/dL (70-110) 03/10/20 06:36 Hemoglobin A1c % 5.4 % (4.7-6.0) 02/12/20 04:46 Lactic Acid 1.9 mmol/L (0.7-2.1) 02/11/20 14:20 Calcium 8.8 mg/dL (8.4-10.2) 03/03/20 10:30 Total Bilirubin 0.7 mg/dL (0.2-1.3) 03/03/20 10:30 Direct Bilirubin 0.2 mg/dL (0.0-0.4) 03/03/20 10:30 Neonat Total Bilirubin Not Reportable 03/03/20 10:30 Neonat Direct Bilirubin Not Reportable 03/03/20 10:30 Neonat Indirect Bili Not Reportable 03/03/20 10:30 AST 34 U/L (17-59) 03/03/20 10:30 ALT 22 U/L (<50) 03/03/20 10:30 Alkaline Phosphatase 78 U/L (38-126) 03/03/20 10:30 Creatine Kinase 38 U/L (55-170) L 02/11/20 14:20 Troponin I < 0.012 ng/mL 02/11/20 14:20 Total Protein 5.8 g/dL (6.3-8.2) L 03/03/20 10:30 Albumin 2.8 g/dL (3.5-5.0) L 03/03/20 10:30 EGFR Cancelled 02/19/20 05:14 Urine Color YELLOW 02/11/20 14:20 Urine Appearance SLIGHTLY-CLOUDY 02/11/20 14:20 Urine pH 7.0 (5.0-9.0) 02/11/20 14:20 Ur Specific [place] 1.021 02/11/20 14:20 Urine Protein 30 mg/dL (NEGATIVE) H 02/11/20 14:20 Urine Glucose (UA) NEGATIVE mg/dL (NEGATIVE) 02/11/20 14:20 Urine Ketones NEGATIVE mg/dL (NEGATIVE) 02/11/20 14:20 Urine Blood NEGATIVE (NEGATIVE) 02/11/20 14:20 Urine Nitrite NEGATIVE (NEGATIVE) 02/11/20 14:20 Urine Bilirubin NEGATIVE (NEGATIVE) 02/11/20 14:20 Urine Urobilinogen 4.0 mg/dL (<2.0) H 02/11/20 14:20 Ur Leukocyte Esterase NEGATIVE (NEGATIVE) 02/11/20 14:20 Urine WBC (Auto) 4 /HPF 02/11/20 14:20 Urine RBC (Auto) 3 /HPF 02/11/20 14:20 U Hyaline Cast (Auto) 3 /LPF 02/11/20 14:20 Urine Mucus (Auto) MANY /LPF 02/11/20 14:20 Urine Ascorbic Acid 20 (NEGATIVE) H 02/11/20 14:20 COVID-19 Source See comment 02/11/20 19:00 COVID-19 ([place]) Not Detected (Not Detect) 02/11/20 19:00 Influenza A (Rapid) NEGATIVE (NEGATIVE) 02/11/20 17:15 Influenza B (Rapid) NEGATIVE (NEGATIVE) 02/11/20 17:15 02/11/20 14:20 Troponin I < 0.012 Impressions: Chest X-Ray 02/11/20 14:22 IMPRESSION: Minimal left basilar infiltrate most likely atelectasis. Head CT 02/11/20 14:26 IMPRESSION: CHRONIC CHANGES OF ATROPHY AND MICROVASCULAR ISCHEMIA. NO ACUTE PROCESS. EVIDENCE OF ACUTE STROKE: NO. Chest X-Ray 02/15/20 09:22 IMPRESSION: NO ACUTE RADIOGRAPHIC FINDING IN THE CHEST. Chest X-Ray 02/23/20 00:00 IMPRESSION: Right lung pneumonia consistent with the clinical concern for aspiration. Modified Barium Swallow 02/25/20 09:47 IMPRESSION: LARYNGEAL PENETRATION AND ASPIRATION ABOVE. PLEASE SEE SPEECH PATHOLOGIST REPORT FOR OTHER FINDINGS AND RECOMMENDATIONS. Chest X-Ray 02/28/20 06:00 IMPRESSION: Right lower lobe pneumonia. No significant change. Plan Health Concerns: High risk for readmission due to aspiration pneumonia and advance dementia. Plan of Treatment: Discharge to home hospice program. Goals: Reduce readmission risk through appropriate home hospice program direction and supervision by the hospice doctor and team members. Time Spent: Greater than 30 Minutes - post acute care coordnation. Stroke Is this a Stroke Patient?: No Acute Heart Failure Is this a Heart Failure Patient?: No
[2020-03-10] MEDS: FAMOTIDINE INJ/PF 20 MG/2 ML SDV IV SCH (10:27)
[2020-03-10] MEDS: ZINC SULFATE 220 MG CAPSULE PO SCH (10:33)
[2020-03-10] MEDS: CHOLECALCIFEROL (D3) 1,000 UNIT (25 MCG) TABLET PO SCH (10:34)
[2020-03-10] MEDS: KETOCONAZOLE 2% SHAMPOO 120 ML BOTTLE TP SCH (10:34)
[2020-03-10] MEDS: LOSARTAN POTASSIUM 50 MG TABLET PO SCH (10:34)
[2020-03-10] MEDS: HALOPERIDOL LACTATE INJ 5 MG/1 ML VIAL IV PRN (10:43)
[2020-03-10] MEDS: NORMAL SALINE 1000 ML 1,000 ML with POTASSIUM CHLORIDE 20 MEQ, MAGNESIUM SULFATE 8 MEQ,... IV SCH ×5 (17:46)
[2020-03-10 17:50] VITALS: BP 133/68
== END 2020-03-10 18:55 | disposition hospice, home (50) | DRG 193 ==
LOC: ER 14:07 → EH 19:28 → 3N 22:01 → 3W 02-13 08:53 → 5 03-04 18:34
PROVIDERS: ADMIT Internal Medicine Geriatric Medicine; ATTEND Internal Medicine Geriatric Medicine
DX: J18.9 Pneumonia, unspecified organism (principal); G92 Toxic encephalopathy; E87.0 Hyperosmolality and hypernatremia; I10 Essential (primary) hypertension; Z78.1 Physical restraint status; R33.9 Retention of urine, unspecified; L21.0 Seborrhea capitis; R31.9 Hematuria, unspecified; Z20.828 Contact with and (suspected) exposure to other viral communicable diseases; J69.0 Pneumonitis due to inhalation of food and vomit; S39.81XA Other specified injuries of abdomen, initial encounter; W19.XXXA Unspecified fall, initial encounter; F03.90 Unspecified dementia, unspecified severity, without behavioral disturbance, psychotic disturbance, mood disturbance, and anxiety; Y92.9 Unspecified place or not applicable; Z66 Do not resuscitate; Z79.899 Other long term (current) drug therapy
CPT/HCPCS: 36415; 70450; 71045; 74230; 80048; 80053; 81001; 82550; 82803; 82962; 83036; 83605; 84484; 85025; 85610; 85730; 87040; 87077; 87086; 87635; 87804; 93005; 93010; 94640; 96374; 96375; 99285; C9803; J0692; J0696; J1100; J1630; J1650; J1956; J3411; J3475; J3480; J3490; J7030; J7042; J7060; S0028